=== PATIENT | male | born 1970 | race Caucasian/White ===

== ENCOUNTER 2019-08-07 05:35 | Outpatient (CLI) | payer BC ==
[~2019-08-07] VITALS: Ht 180 cm; Wt 127.0 kg
[~2019-08-07 05:35] MED LIST: AGM875T PO; ALPR0.25 PO; AMIO200T50 PO; AMLO10TA7 PO; AMLO5TAB9 PO; APIX5TAB PO; APIX5TAB2 PO; ASP325TEC PO; ASPI325T32 PO; BUSP15TA60 PO; CITA20TA4 PO; DCS100C PO; DILT120C PO; DILT300C PO; DILT360C26 PO; DILT360C36 PO; DLT240CCR PO; DRON400T PO; FLEC50TA PO; LEVO750T9 PO; LISI10TA2 PO; METAMUCIL POWD283 GM PO; METO-272 PO; METO-370 PO; METO-395 PO; PANT40TA PO; PANT40TA3 PO; PNT40TEC PO; PRD10T PO; SENN-75 PO; STL80T PO; Sotalol Hcl PO; TEST200V3 IM; testosterone
[2019-08-07] MEDS ORDERED: ATOR10TA66 PO (14:50)
[2019-08-07] MEDS ORDERED: DOCU-143 PO (14:50)
[2019-08-07] MEDS ORDERED: METF-397 PO (14:50)
[2019-08-07] MEDS ORDERED: ESCI10TA PO (14:50)
[2019-08-07] MEDS ORDERED: METO-395 PO (14:50)
[2019-08-07] MEDS ORDERED: VALS160T29 PO (14:50)
== END 2019-08-07 14:57 | disposition home or self-care (01) ==
LOC: PREOP 05:35
PROVIDERS: ATTEND Specialist
DX: Z01.818 Encounter for other preprocedural examination (principal)

== ENCOUNTER 2019-08-09 06:49 | Day surgery (SDC) | payer BC ==
[~2019-08-09] VITALS: Ht 180 cm; Wt 127.0 kg
[~2019-08-09 06:49] MED LIST changes: +ATOR10TA66 PO; +DOCU-143 PO; +ESCI10TA PO; +METF-397 PO; -METO-370 PO; -METO-395 PO; +METO50TA7 PO; +MTP100TCR PO; +VALS160T29 PO
[2019-08-09] MEDS ORDERED: TIMOLOL MALEATE 0.5% 5 ML (TIMOPTIC) BTL OU PRN (07:00)
[2019-08-09] MEDS ORDERED: MOXIFLOXACIN OPHTH SOLN 5 MG/ML 0.3 ML SYRINGE OP ONE (07:00)
[2019-08-09] MEDS ORDERED: POVIDONE (BETADINE) OPHTH SOLN 5% 30 ML OP ONE (07:00)
[2019-08-09] MEDS ORDERED: LIDOCAINE PF 1% 2 ML AMP IR PRN (07:00)
[2019-08-09] MEDS: TETRACAINE 0.5% OPHTH SOLN 4 ML BTL (SINGLE DOSE ONLY) OU PRN ×4 (07:03→07:30)
[2019-08-09] MEDS: CYCLOPENTOLATE 1% (CYCLOGYL) 2 ML DROPS OP SCH ×3 (07:18→07:30)
[2019-08-09] MEDS: PHENYLEPHRINE 10% OPHTH (NEO-SYN) 5 ML BTL OU SCH ×3 (07:18→07:31)
[2019-08-09 07:20] VITALS: BP 124/76
--- NOTE | 2019-08-09 07:51 | Ophthalmologist Pre-Op Note ---
Pre-Operative Progress Note H&P Reviewed The H&P was reviewed, patient examined and no changes noted. Date H&P Reviewed: Aug 09, 2019 Time H&P Reviewed: 07:51 Pre-Op Dx Cataract, Right Eye LAMAR GAVIN MD Aug 09, 2019 07:51 POS
[2019-08-09] MEDS ORDERED: MIDAZOLAM 2 MG/2 ML (VERSED) VIAL ONE (07:55)
[2019-08-09] MEDS ORDERED: acetaZOLAMIDE ER 500 MG CAP (DIAMOX SEQUELS) PO ONE (08:00)
--- NOTE | 2019-08-09 08:15 | Ophthalmology Operative Report ---
Cataract removal/placement IOL PREOPERATIVE DIAGNOSIS: Cataract Right Eye POSTOPERATIVE DIAGNOSIS: Cataract Right Eye PROCEDURE: Cataract removal and placement of posterior chamber implant, right eye SURGEON: Javier Gavin ANESTHESIA: Topical with sedation COMPLICATIONS: None ESTIMATED BLOOD LOSS: Minimal DESCRIPTION OF PROCEDURE: After proper informed consent was obtained, the patient, a 48 male, was taken to the Operating Room and the right eye was anesthetized with tetracaine. The right eye was then prepped and draped in the usual manner. A wire lid speculum was placed. A paracentesis was made at the left hand position. Preservative free lidocaine was injected into the anterior chamber followed by viscoelastic. A clear corneal incision was made in the temporal position. A capsulorrhexis was preformed and the central nuclear and cortical material were removed. The posterior capsule was polished and Solo [id number] 21.0 IOL was placed into the capsular bag. The residual viscoelastic was aspirated and balanced saline solution was injected into the anterior chamber. Moxifloxacin was injected into the anterior chamber. The wound was checked and found to be water tight. The patient tolerated the procedure well without complications. JAVIER GAVIN MD Aug 09, 2019 08:15 POS
[2019-08-09 08:23] VITALS: BP 124/74
--- NOTE | 2019-08-09 11:42 | Anesthesia-General Post-Op ---
MAC Patient Condition Mental Status/LOC: Same as Preop Cardiovascular: Satisfactory Nausea/Vomiting: Absent Respiratory: Satisfactory Pain: Controlled Complications: Absent Post Op Complications Complications None Follow Up Care/Instructions Patient Instructions None needed. Anesthesiology Discharge Order Discharge Order Patient is doing well, no complaints, stable vital signs, no apparent adverse anesthesia problems. No complications reported per nursing. SRIDHAR AVELAR CRNA Aug 09, 2019 11:42 POS
--- OUTSIDE RECORDS SUMMARY | 2019-09-04 08:16 | XMS REPORT | Clinical Summary ---
Author Author [facility] Organization [facility] Address Unknown Phone Unavailable Care Team Providers Care B Operator Name Role Phone Sonja Pritchard RN Unavailable Unavailable Terrell Cui MD PCP Source Comments Some departments are not documenting in the electronic medical record. If you d o not see the information that you expected, contact Release of Information in state [facility] facility [employer] Information Management department at [phone] for further assistan ce in locating additional records.[facility] Allergies Comments Active Allergy Reactions Severity Noted Date Pt had sneezing following IV contrast injection. Pt states this happens every time he has IV contrast. Denies itching. No rash noted on assessment. Iodinated Contrast Media SNEEZING Low 08/08 Medications End Date Status Medication Sig Dispensed Refills Start Date Active apixaban (ELIQUIS) 5 mg Take 5 mg by 0 tab tablet mouth twice daily. Active testosterone cypionate Inject 100 mg 0 (DEPO-TESTOSTERONE) 200 to area(s) as mg/mL injection directed every 7 days. Fridays Active ALPRAZolam (XANAX) 0.25 Take 0.25 mg 0 mg tablet by mouth twice daily as needed for Anxiety. Active busPIRone (BUSPAR) 15 mg Take 15 mg by 0 tablet mouth at bedtime daily. Active docusate (COLACE) 100 mg Take 200 mg 0 capsule by mouth at bedtime daily. Active amLODIPine (NORVASC) 10 Take 10 mg by 0 mg tablet mouth daily. Active pantoprazole DR 1 Tab daily. 30 Tab 0 (PROTONIX) 40 mg tablet 6 Active metoprolol XL (TOPROL XL) Take 100 mg 0 100 mg extended release by mouth tablet daily. Active PSYLLIUM HUSK/ASPARTAME Take by 0 (METAMUCIL SUGAR-FREE mouth daily. (ASPART) PO) Active lisinopril (PRINIVIL; Take 1-2 Tabs 270 Tab 3 ZESTRIL) 10 mg tablet by mouth as 7 directed. Take 2 tablets by mouth in the morning and 1 tablet by mouth at night. Active Problems Problem Noted Date Atrial fibrillation 08/19/2015 PMHx Summary 07/21/2015 Overview: His PMHx briefly includes: Currently pe rsistent AFIB, AFL, hypertension, status post Medtronic LINQ device impla ntation, sleep apnea syndrome on CPAP, normal LV function by echocardiog aleida from Dr. Cobb s office April 29, 2015, negative stre ss imaging from Dr. Cobb s office 2014, HYPOthyroidism, and GERD . His History is also notable for tobacco chewing at least a can per day. Of note per cardiac catheterization in the remote past which reportedly documented nonobstructive CAD. There was also concern in the remote tn st that Amiodarone that he had been on previously caused thyroid disease wh ich in part which resulted in him stopping it. Regarding his AFIB: Apparently Mr. Niall fierro has had a history of AFIB dating back to at least 2012, or maybe before that. He had been on Amiodarone for up to a year with his pr ior AFIB. It was ultimately discontinued. The episodes [facility] 2012 and 2014 were rare, brief, and self-limited. 03/2015 He was diagnosed with documented AFIB. He underwent LINQ Medtronic Reveal diana ce implantation by Dr. Cobb on 03/27/15 to help track his AFIB burden. He has been refractory to Multaq and Flecainide and was referred for AFIB RFA. For a much greater detailed history of his AFIB, etc. Refer to my initial consultation 05/08/15. 05/08/15 Initial EP Consultation: At that time we discussed pursuing AFIB RFA for his recurrent, very symptomatic , and refractory AFIB. I recommended reinitiation of Flecainid e and recommended repeat CVRT in an effort to try and maintain some sinus r hythm prior to his procedure. Given his Sinus Bradycardia, I recommended in itiating the Flecainide with monitoring. However during that office visit I had noted that he had had an abnormal TSH in the recent past. Therefore I rec ommended further follow up concerned that he was HYPERTHYROID. 05/26/15 He was admitted by Dr. Cobb. F lecainide was reinitiated and he underwent successful Cardioversion rest oring sinus rhythm. Note: during this time, he was noted to be markedly Hyperthyroid, with a TSH level of 0 and a free T4 of 1.65. Apple hancock saw an airline manager. He was initiated on Prednisone, and Methimazol e. 06/01/15 He had recurrent AFIB. He has c ontinued to have intermittent recurrent AFIB, as well as some recurre nt AFL detected through his Bomboard Reveal LinQ Monitor. 06/05/15 OV: Given his recent diagnosis of HYPERTHYROIDISM that was still being treated and since he was on Predn isone, et cetera. We did not feel pursuing invasive RFA was appropriate a t that time. We also discussed that the likelihood o f him having recurrent atrial arrhythmias post-AFIB RFA was high whil e he is still significantly hyperthyroid. Therefore we postponed his AFIB RFA unt il he would be euthyroid and we would have an opportunity at that point to reassess the clinical burden of his atrial arrhythmias--in a euthyroid state. 06/05/[address] Angiogram: Demonstr ated normal PV anantomy and normal LA size and was otherwise normal, per r eport as well. 07/03/15 - 07/08/15 Hospitalized at [facility] in with severe Hepatitis and markedly elevated LFTs, bilirubin, etc. It was thought this was related to his Flecainide (very unlikely) or his Methimazole. He even underwent a liver Bx, showing findings that were reportedly c/w Medication-induced Hepat ic toxic injury. Iron stains were normal, and trichrome stain showed mild periportal fibrosis. He was also back in AFIB at that time a nd was CVRT'd. Sotalol was also initiated at 80 mg BID and for SBRAD his Metoprolol and Diltiazem were both stopped. He remaine d on Eliquis. 07/21/15 OV: His ECG documented NSR, ho wever on device check, he had 83 tachy episodes-- all AFIB with RVR. He had a 33% AFIB burden. His AFIB was significantly symptomatic. At this poin t, he was euthyroid. Thus, we planned to increase his Sotalo l to 120 or 160 mg BID (he would do this in admission with Dr. Cobb). After discussion, we planned to proceed with an AFIB/KEY Ablation procedure. Since he had also had docume nted AFL in the past, we also planned a CTI AFL RFA. Prior to the procedure, we discussed th at he should modify arrhythmia risk factors, including cutting his tobacco use at least in half, following carefully with his airline manager to m aintain euthyroidism, and use his CPAP diligently. Post-ablation, we discussed that we wou ld resume his Sotalol at 120 or 160 mg BID. 08/19/15 Successful AFIB RFA with WACA approach and right-sided CTI-AFL RFA . All 4 PVs isolated and independen t firing noted with LSPV and RSPV. Pt was in AFIB at presentation with RVR and post intubation had persistent relative hypotension with SBPs in the 8 0-90s mmHg. So we proceed at onset with Elective CVRT 360 J restoring NSR- -after CS catheter up confirming not AFL but AFIB. With NSR and time, SBP dr wilks improved. Once Left side done and no arrhythmias with Isuprel 20 mcg then pulled to right and the ectopy induced by catheters and on isup rel he went into AFL with CL of 230 ms that appeared to be CTI-dependent. W hen attempting entrainment from LLRA--> terminating the AFL. We then di d a CTI RFA creating bidirectional conduction block. He stayed for Sotalol initiation. 11/24/15 OV: No documented recurrent HENRY B since after the first month Post-Ablation. Thus, we discontinued his Sotalol and m onitored via his ILR. Hyperthyroidism 06/05/2015 Typical atrial flutter 06/05/2015 Screening for cardiovascular condition 05/08/2015 Overview: 04/29/15 EULOGIO (Via [facility]): EF 60%. LA, KEY normal in size, no clot or thrombus seen. No pericardial effusion. 04/30/15 Lexiscan stress test ([facility]ia [facility]): No ischemia or infarction on SPECT images. Normal LV size with good contractility. Calculated EF 58%. 05/01/15 CXR ([facility]ia [facility]): Cardiomegaly with minimal vascular congestion. Status post placement of implantable loop recorder 0 04/29/2015 Overview: 03/27/15 LINQ implant (Dr. Cobb). SN RL [id number] Paroxysmal atrial fibrillation Overview: 02/2013 EULOGIO/DCCV (Dr. Cobb) 03/2015 EULOGIO/DCCV (Dr. Cobb) 06/03/16 - Holter: (Dr Cobb) - 48 hours : SR with occasional PVC's, V-couplets, 1 episode of 3 beats NSVT, mnomorphic, LBBB morphology. Hypertension due to endocrine disorder GERD (gastroesophageal reflux disease) AIMEE (obstructive sleep apnea) Overview: 04/08/15 Sleep Study ([facility]ia [facility]): Obstructive sleep apnea-hypopnea syndrome. Family History Medical History Relation Name Comments Hypertension Father Stroke Father Cancer Mother Diabetes Mother Heart Failure Mother Stroke Mother Cancer Paternal Grandmother Relation Name Status Comments Father Mother Paternal Grandmother Social History Date Tobacco Use Types Packs/Day Years Used Never Smoker Smokeless Tobacco: Chew Current User Comments: Patient has chewed tobacco for 26 years; 1 can/day Drinks/Week oz/Week Comments Alcohol Use No Sex Assigned at Date Recorded Not on file Industry Job Start Date Occupation Not on file Not on file Not on file Travel End Travel History Travel Start No recent travel history available. Last Filed Vital Signs Reading Time Taken Comments Vital Sign 144/86 01/23/2017 1:25 PM CDT Blood Pressure 87 01/23/2017 1:25 PM CDT Pulse 36.9 C (98.5 F) 04/23/2016 8:04 AM CDT Temperature - - Respiratory Rate 98% 04/23/2016 9:31 AM CDT Oxygen Saturation - - Inhaled Oxygen Concentration 117.5 kg (259 lb) 01/23/2017 1:25 PM CDT Weight 182.9 cm (6') 01/23/2017 1:25 PM CDT Height 35.13 01/23/2017 1:25 PM CDT Body Mass Index Plan of Treatment Health Maintenance Due Date Last Done Comments DTAP/TDAP VACCINES (1 - 12/15/1979 Tdap) HIV SCREENING 12/15/1983 PHYSICAL (COMPREHENSIVE) 1986 EXAM COLORECTAL CANCER 2018 SCREENING SHINGLES RECOMBINANT 2018 VACCINE (1 of 2) INFLUENZA VACCINE 04/04/2019 05/28/2015, 001, 06/30/2000, Additional history exists Implants Device Identifier Shelf Expiration Date Model / Serial / L ot Implanted Type Area Manufactur er Loop Recorder Loop Recorder Results Not on filefrom Last 3 Months Insurance Type Payer Benefit Subscriber ID Effective Phone Address Plan / Dates Group PPO BC[facility] xxxxxxxxxxxx [id number] [facility] C[facility] resent BLUE [address] (Home) [place] [phone] Advance Directives Patient Digital Research Analyst Explanation Type Date Recorded Advance 08/19/2015 5:50 AM Directive/DPOA Date Inactivated Comments Code Status Date Activated 04/23/2016 12:57 PM Full Code 04/21/2016 6:28 AM Provider has discussed Code Status No, more discussi on w/Patient or Family? needed 08/20/2015 10:47 AM Full Code 08/19/2015 6:01 AM Provider has discussed Code Status No, more discussi on w/Patient or Family? needed
--- OUTSIDE RECORDS SUMMARY | 2019-09-04 08:18 | XMS REPORT | Continuity of Care Document ---
Author Organization Unknown Address Unknown Phone Unavailable Allergies Active Description Code Type Severity Reaction Onset Reported/Identified Relationship to Patient Clinical Status Yes NO KNOWN DRUG ALLERGIES UNKNOWN NO KNOWN DRUG ALLERG Yes NO KNOWN DRUG ALLERGIES UNKNOWN UNKNOWN Yes No Known Drug Allergies [id number] Drug Allergy Unknown N/A 08/07/2019 Medications Medication Packaging Start Date St op Date Route Dosage Sig MECLIZINE TAB 25 MG (ANTIVERT) MG 04/19/2017 04/19/2017 PRN ONCE NORMAL SALINE 1000CC IV BAG INJ 0.9 % (NS 1000CC IV BAG) ml 06/17/2017 06/17/2017 ONCE&2304 PANTOPAZOLE VIAL INJ 40 MG (PROTONIX IV) MG 06/17/2017 06/17/2017 ONCE&2306 APIXABAN TAB 5 MG (ELIQUIS) MG 06/18/2017 06/24/2017 BID&0800,2000 PANTOPRAZOLE TAB 40 MG (PROTONIX) MG 06/18/2017 06/24/2017 Daily&0900 METOPROLOL TAB 50 MG (LOPRESSOR) MG 06/18/2017 06/24/2017 Daily&0900 AMLODIPINE TAB 10 MG (NORVASC) MG 06/18/2017 06/24/2017 Daily&0900 Docusate sodium 100mg oral capsule (COLACE ) MG 06/18/2017 06/27/2017 QHS&2100 LACTATED RINGERS 1000CC IV BAG INJ ml 07/10/2017 07/11/2017 CONTINUOUSEVERY 0 Hour Problems Date Dx Coded Attending Type Code Diagnosis Diagnosed By 02/19/2013 NETTA JUAN MD Ot 257. 2 TESTICULAR HYPOFUNC NEC 02/19/2013 NETTA JUAN MD Ot 276. 8 HYPOPOTASSEMIA 02/19/2013 NETTA JUAN MD Ot 305. 1 TOBACCO USE DISORDER 02/19/2013 NETTA JUAN MD Ot 427. 31 ATRIAL FIBRILLATION 02/19/2013 NETTA JUAN MD Ot 530. 81 ESOPHAGEAL REFLUX 02/19/2013 DRAKE ARIAS NETTA Marshall Ot V12. 79 PERSONAL HISTORY OTH SPEC DIGESTIVE SYST 02/25/2013 BETZAIDA ARIAS FACC, ALI FACP CCDS Ot 278.00 OBESITY, NOS 02/25/2013 BETZAIDA BASSETTC, ALI FACP CCDS Ot 427.31 ATRIAL FIBRILLATION 02/25/2013 BETZAIDA ARIAS FACC, ALI FACP CCDS Ot 530.81 ESOPHAGEAL REFLUX 02/25/2013 BETZAIDA ARIAS FACC, ALI FACP CCDS Ot 786.50 CHEST PAIN NOS 02/25/2013 BETZAIDA ARIAS FACC, ALI FACP CCDS Ot V85.33 BODY MASS INDEX 33.0-33.9, ADULT 04/06/2013 GREY ARIAS, TORO Atkinson Ot 562. 11 DIVERTICULITIS COLON (W/O MENT OF HEMORR 04/06/2013 GREY ARIAS, TORO Atkinson Ot 789. 04 ABDOMINAL PAIN, LEFT LOWER QUADRANT 09/05/2014 Ot 603.9 09/05/2014 Ot 604.90 10/08/2014 Ot 603.9 10/08/2014 Ot 604.90 10/09/2014 Ot 603.9 10/09/2014 Ot 604.90 10/15/2014 COSENS DO, CARLOS L Ot 927. 3 10/15/2014 COSENS DO, CARLOS L Ot E000 .0 10/15/2014 COSENS DO, CARLOS L Ot E928 .9 10/20/2014 Ot 603.9 10/20/2014 Ot 604.90 10/20/2014 COSENS DO, CARLOS L Ot 927. 3 10/20/2014 COSENS DO, CARLOS L Ot E000 .0 10/20/2014 COSENS DO, CARLOS L Ot E928 .9 10/20/2014 COSENS DO, CARLOS L Ot 927. 3 10/20/2014 COSENS DO, CARLOS L Ot E000 .0 10/20/2014 COSENS DO, CARLOS L Ot E928 .9 03/10/2015 VITOR HUA MD Ot 427.31 ATRIAL FIBRILLATION 03/10/2015 VITOR HUA MD Ot 427 .9 CARDIAC DYSRHYTHMIA NOS 03/10/2015 VITOR HUA MD Ot V58.69 OT MED,LT,CURRENT USE 03/25/2015 Ot 603.9 03/25/2015 Ot 604.90 03/25/2015 CAPO DODANIELNT L Ot 927. 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 00 OBESITY, NOS 03/25/2015 NETTA JUAN MD Ot 305. 1 TOBACCO USE DISORDER 03/25/2015 NETTA JUAN MD Ot 401. 9 HYPERTENSION NOS 03/25/2015 NETTA JUAN MD Ot 427. 31 ATRIAL FIBRILLATION 03/25/2015 NETTA JUAN MD Ot 530. 81 ESOPHAGEAL REFLUX 03/25/2015 NETTA JUAN MD Ot V03. 82 PROPHYLACTIC VACC AGAINST STREPTOCOCCUS 03/25/2015 NETTA JUAN MD Ot V85. 32 BODY MASS INDEX 32.0-32.9, ADULT 03/27/2015 NETTA JUAN MD Ot 272. 4 HYPERLIPIDEMIA NEC/NOS 03/27/2015 NETTA JUAN MD Ot 401. 9 HYPERTENSION NOS 03/27/2015 NETTA JUAN MD Ot 427. 31 ATRIAL FIBRILLATION 03/27/2015 NETTA JUAN MD Ot 785. 1 PALPITATIONS 03/27/2015 NETTA JUAN MD Ot V58. 61 ANTICOAGULANTS,LT,CURRENT USE 03/27/2015 NETTA JUAN MD Ot V58. 69 OTH MED,LT,CURRENT USE 04/02/2015 NETTA JUAN MD Ot 327. 23 OBSTRUCTIVE SLEEP APNEA (ADULT) (PEDIATR 04/02/2015 NETTA JUAN MD Ot 427. 31 ATRIAL FIBRILLATION 04/30/2015 NETTA JUAN MD Ot 242. 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 00 OBESITY, NOS 04/30/2015 NETTA JUAN MD Ot 327. 23 OBSTRUCTIVE SLEEP APNEA (ADULT) (PEDIATR 04/30/2015 NETTA JUAN MD Ot 401. 9 HYPERTENSION NOS 04/30/2015 NETTA JUAN MD Ot 427. 31 ATRIAL FIBRILLATION 04/30/2015 NETTA JUAN MD Ot 427. 81 SINOATRIAL NODE DYSFUNCT 04/30/2015 NETTA JUAN MD Ot 496 CHR AIRWAY OBSTRUCT NEC 04/30/2015 NETTA JUAN MD Ot V85. 34 BODY MASS INDEX 34.0-34.9, ADULT 05/02/2015 NETTA JUAN MD Ot 242. 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 00 OBESITY, NOS 05/02/2015 NETTA JUAN MD Ot 327. 23 OBSTRUCTIVE SLEEP APNEA (ADULT) (PEDIATR 05/02/2015 NETTA JUAN MD Ot 401. 9 HYPERTENSION NOS 05/02/2015 NETTA JUAN MD Ot 426. 82 LONG QT SYNDROME 05/02/2015 NETTA JUAN MD Ot 427. 31 ATRIAL FIBRILLATION 05/02/2015 NETTA JUAN MD Ot 496 CHR AIRWAY OBSTRUCT NEC 05/02/2015 NETTA JUAN MD Ot V85. 34 BODY MASS INDEX 34.0-34.9, ADULT 05/21/2015 NETTA JUAN MD Ot 242. 90 05/21/2015 NETTA JUAN MD Ot 257. 2 05/21/2015 NETTA JUAN MD Ot 278. 00 05/21/2015 NETTA JUAN MD Ot 327. 23 05/21/2015 NETTA JUAN MD Ot 401. 9 05/21/2015 NETTA JUAN MD Ot 427. 31 05/21/2015 NETTA JUAN MD Ot 427. 81 05/21/2015 NETTA JUAN MD Ot 496 05/21/2015 NETTA JUAN MD Ot V85. 34 05/27/2015 NETTA JUAN MD Ot 242. 90 05/27/2015 NETTA JUAN MD Ot 257. 2 05/27/2015 NETTA JUAN MD Ot 278. 00 05/27/2015 NETTA JUAN MD Ot 327. 23 05/27/2015 NETTA JUAN MD Ot 401. 9 05/27/2015 NETTA JUAN MD Ot 427. 31 05/27/2015 NETTA JUAN MD Ot 496 05/27/2015 NETTA JUAN MD Ot V85. 33 05/28/2015 NETTA JUAN MD Ot 242. 90 05/28/2015 NETTA JUAN MD Ot 257. 2 05/28/2015 NETTA JUAN MD Ot 278. 00 05/28/2015 NETTA JUAN MD Ot 327. 23 05/28/2015 NETTA JUAN MD Ot 401. 9 05/28/2015 NETTA JUAN MD Ot 427. 31 05/28/2015 NETTA JUAN MD Ot 496 05/28/2015 NETTA JUAN MD Ot V85. 33 05/28/2015 NETTA JUAN MD Ot 242. 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 4 HYPERLIPIDEMIA NEC/NOS 05/28/2015 NETTA JUAN MD Ot 278. 00 OBESITY, NOS 05/28/2015 NETTA JUAN MD Ot 327. 23 OBSTRUCTIVE SLEEP APNEA (ADULT) (PEDIATR 05/28/2015 NETTA JUAN MD Ot 401. 9 HYPERTENSION NOS 05/28/2015 NETTA JUAN MD Ot 427. 31 ATRIAL FIBRILLATION 05/28/2015 NETTA JUAN MD Ot 496 CHR AIRWAY OBSTRUCT NEC 05/28/2015 NETTA JUAN MD Ot V85. 33 BODY MASS INDEX 33.0-33.9, ADULT 07/26/2015 NETTA JUAN MD Ot E05. 90 THYROTOXICOSIS, UNSP WITHOUT THYROTOXIC 07/26/2015 NETTA JUAN MD Ot E29. 1 TESTICULAR HYPOFUNCTION 07/26/2015 NETTA JUAN MD Ot F17.220 NICOTINE DEPENDENCE, CHEWING TOBACCO, UN 07/26/2015 NETTA JUAN MD Ot G47. 33 OBSTRUCTIVE SLEEP APNEA (ADULT) (PEDIATR 07/26/2015 NETTA JUAN MD Ot I10 ESSENTIAL (PRIMARY) HYPERTENSION 07/26/2015 NETTA JUAN MD Ot I48. 91 UNSPECIFIED ATRIAL FIBRILLATION 07/26/2015 NETTA JUAN MD Ot I49. 5 SICK SINUS SYNDROME 07/26/2015 NETTA JUAN MD Ot J44. 9 CHRONIC OBSTRUCTIVE PULMONARY DISEASE, U 07/26/2015 NETTA JUAN MD Ot K21. 9 GASTRO-ESOPHAGEAL REFLUX DISEASE WITHOUT 07/26/2015 NETTA JUAN MD Ot R74. 8 ABNORMAL LEVELS OF OTHER SERUM ENZYMES 07/26/2015 NETTA JUAN MD Ot E05. 90 07/26/2015 NETTA JUAN MD Ot E29. 1 07/26/2015 NETTA JUAN MD Ot F17.220 07/26/2015 NETTA JUAN MD Ot G47. 33 07/26/2015 NETTA JUAN MD Ot I10 07/26/2015 NETTA JUAN MD, Ot I48. 91 07/26/2015 NETTA JUAN MD Ot I49. 5 07/26/2015 NETTA JUAN MD Ot J44. 9 07/26/2015 NETTA JUAN MD Ot K21. 9 07/26/2015 NETTA JUAN MD Ot R74. 8 08/20/2015 ANUM CÁRDENAS DO Ot I51.7 CARDIOMEGALY 08/20/2015 ANUM CÁRDENAS DO Ot J18.9 PNEUMONIA, UNSPECIFIED ORGANISM 08/20/2015 ANUM CÁRDENAS DO Ot R07.89 OTHER CHEST PAIN 08/20/2015 ANUM CÁRDENAS DO Ot R50.9 FEVER, UNSPECIFIED 08/21/2015 Ot 603.9 08/21/2015 Ot 604.90 08/21/2015 DANIEL SCANLON DONT L Ot 927. 3 08/21/2015 DANIEL SCANLON DONT L Ot E000 .0 08/21/2015 DANIEL SCANLON DONT L Ot E928 .9 09/08/2015 NETTA JUAN MD Ot I48. 91 09/08/2015 NETTA JUAN MD Ot J90 09/08/2015 NETTA JUAN MD Ot R06. 00 01/08/2016 NETTA JUAN MD Ot I48. 91 UNSPECIFIED ATRIAL FIBRILLATION 01/08/2016 NETTA JUAN MD, Ot J90 PLEURAL EFFUSION, NOT ELSEWHERE CLASSIFI 01/08/2016 NETTA JUAN MD Ot R06. 00 DYSPNEA, UNSPECIFIED 01/08/2016 Ot 603.9 HYDR OCELE NOS 01/08/2016 Ot 604.90 ORCHITIS/EPIDIDYMIT NOS 01/08/2016 CAPO DANIEL CARPENTERGLENROY Lima Ot 927. 3 CRUSHING INJURY FINGER 01/08/2016 CARLOS SCANLON DO Ot E000 .0 CIVILIAN ACTIVITY DONE FOR INCOME OR PAY 01/08/2016 CARLOS SCANLON DO Ot E928 .9 ACCIDENT NOS 01/08/2016 NETTA JUAN MD Ot I48. 91 UNSPECIFIED ATRIAL FIBRILLATION 01/08/2016 NETTA JUAN MD Ot J90 PLEURAL EFFUSION, NOT ELSEWHERE CLASSIFI 01/08/2016 NETTA JUAN MD Ot R06. 00 DYSPNEA, UNSPECIFIED 01/10/2016 NETTA JUAN MD Ot E03. 9 HYPOTHYROIDISM, UNSPECIFIED 01/10/2016 NETTA JUAN MD Ot E29. 1 TESTICULAR HYPOFUNCTION 01/10/2016 NETTA JUAN MD Ot F17.220 NICOTINE DEPENDENCE, CHEWING TOBACCO, UN 01/10/2016 NETTA JUAN MD Ot G47. 33 OBSTRUCTIVE SLEEP APNEA (ADULT) (PEDIATR 01/10/2016 NETTA JUAN MD Ot I10 ESSENTIAL (PRIMARY) HYPERTENSION 01/10/2016 NETTA JUAN MD Ot I48. 91 UNSPECIFIED ATRIAL FIBRILLATION 01/10/2016 NETTA JUAN MD Ot J44. 9 CHRONIC OBSTRUCTIVE PULMONARY DISEASE, U 01/10/2016 NETTA JUAN MD Ot K21. 9 GASTRO-ESOPHAGEAL REFLUX DISEASE WITHOUT 04/28/2016 NETTA JUAN MD Ot E03. 9 HYPOTHYROIDISM, UNSPECIFIED 04/28/2016 NETTA JUAN MD Ot E29. 1 TESTICULAR HYPOFUNCTION 04/28/2016 NETTA JUAN MD Ot G47. 33 OBSTRUCTIVE SLEEP APNEA (ADULT) (PEDIATR 04/28/2016 NETTA JUAN MD Ot I10 ESSENTIAL (PRIMARY) HYPERTENSION 04/28/2016 NETTA JUAN MD Ot I48. 0 PAROXYSMAL ATRIAL FIBRILLATION 04/28/2016 NETTA JUAN MD Ot J44. 9 CHRONIC OBSTRUCTIVE PULMONARY DISEASE, U 04/28/2016 NETTA JUAN MD Ot K21. 9 GASTRO-ESOPHAGEAL REFLUX DISEASE WITHOUT 04/28/2016 NETTA JUAN MD Ot Z72. 0 TOBACCO USE 04/28/2016 NETTA JUAN MD Ot Z79.899 OTHER LONGTERM (CURRENT) DRUG THERAPY 05/04/2016 Ot 603.9 HYDR OCELE NOS 05/04/2016 Ot 604.90 ORCHITIS/EPIDIDYMIT NOS 05/04/2016 COSENS DO, CARLOS L Ot 927. 3 CRUSHING INJURY FINGER 05/04/2016 COSENS DO, CARLOS L Ot E000 .0 CIVILIAN ACTIVITY DONE FOR INCOME OR PAY 05/04/2016 COSENS DO, CARLOS L Ot E928 .9 ACCIDENT NOS 05/04/2016 NETTA JUAN MD Ot I48. 91 UNSPECIFIED ATRIAL FIBRILLATION 05/04/2016 NETTA JUAN MD, Ot J90 PLEURAL EFFUSION, NOT ELSEWHERE CLASSIFI 05/04/2016 NETTA JUAN MD Ot R06. 00 DYSPNEA, UNSPECIFIED 05/13/2016 NETTA JUAN MD Ot E03. 9 HYPOTHYROIDISM, UNSPECIFIED 05/13/2016 NETTA JUAN MD Ot E29. 1 TESTICULAR HYPOFUNCTION 05/13/2016 NETTA JUAN MD Ot G47. 33 OBSTRUCTIVE SLEEP APNEA (ADULT) (PEDIATR 05/13/2016 NETTA JUAN MD Ot I10 ESSENTIAL (PRIMARY) HYPERTENSION 05/13/2016 NETTA JUAN MD Ot I48. 0 PAROXYSMAL ATRIAL FIBRILLATION 05/13/2016 NETTA JUAN MD Ot J44. 9 CHRONIC OBSTRUCTIVE PULMONARY DISEASE, U 05/13/2016 NETTA JUAN MD Ot K21. 9 GASTRO-ESOPHAGEAL REFLUX DISEASE WITHOUT 05/13/2016 NETTA JUAN MD Ot Z72. 0 TOBACCO USE 05/13/2016 NETTA JUAN MD Ot Z79.899 OTHER HOUSE WIRER HELPER (CURRENT) DRUG THERAPY 06/03/2016 Ot 603.9 HYDR OCELE NOS 06/03/2016 Ot 604.90 ORCHITIS/EPIDIDYMIT NOS 06/03/2016 COSENS DO, CARLOS L Ot 927. 3 CRUSHING INJURY FINGER 06/03/2016 COSENS DO, CARLOS L Ot E000 .0 CIVILIAN ACTIVITY DONE FOR INCOME OR PAY 06/03/2016 COSENS DO, CARLOS L Ot E928 .9 ACCIDENT NOS 06/03/2016 NETTA JUAN MD Ot I48. 91 UNSPECIFIED ATRIAL FIBRILLATION 06/03/2016 NETTA JUAN MD, Ot J90 PLEURAL EFFUSION, NOT ELSEWHERE CLASSIFI 06/03/2016 NETTA JUAN MD Ot R06. 00 DYSPNEA, UNSPECIFIED 06/15/2016 NETTA JUAN MD Ot I48. 0 PAROXYSMAL ATRIAL FIBRILLATION 02/02/2017 Law Posey 883.1 OPEN WOUND OF FINGERS, COMPLICATED 02/02/2017 Law Posey S61.011A LACERATION W/O FB OF RIGHT THUMB W/O DAMAGE TO NAIL, INIT 02/05/2017 Cristino Lincoln V58.31 ENCOUNTER FOR CHANGE OR REMOVAL OF SURGICAL WOUND DRESSING 02/05/2017 Cristino Lincoln Z48.01 ENCOUNTER FOR CHANGE OR REMOVAL OF SURGICAL WOUND DRESSING 02/13/2017 Law Posey V58.32 ENCOUNTER FOR REMOVAL OF SUTURES 02/13/2017 Law Posey Z48.02 ENCOUNTER FOR REMOVAL OF SUTURES 03/28/2017 Ot 603.9 HYDR OCELE NOS 03/28/2017 Ot 604.90 ORCHITIS/EPIDIDYMIT NOS 03/28/2017 CARLOS SCANLON DO Ot 927. 3 CRUSHING INJURY FINGER 03/28/2017 CARLOS SCANLON DO Ot E000 .0 CIVILIAN ACTIVITY DONE FOR INCOME OR PAY 03/28/2017 CARLOS SCANLON DO Ot E928 .9 ACCIDENT NOS 03/28/2017 NETTA JUAN MD Ot I48. 91 UNSPECIFIED ATRIAL FIBRILLATION 03/28/2017 NETTA JUAN MD, Ot J90 PLEURAL EFFUSION, NOT ELSEWHERE CLASSIFI 03/28/2017 NETTA JUAN MD Ot R06. 00 DYSPNEA, UNSPECIFIED 03/28/2017 NETTA JUAN MD Ot I48. 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 3 CRUSHING INJURY FINGER 05/01/2017 CARLOS SCANLON DO Ot E000 .0 CIVILIAN ACTIVITY DONE FOR INCOME OR PAY 05/01/2017 CARLOS SCANLON DO Ot E928 .9 ACCIDENT NOS 05/01/2017 DRAKE ARIAS, NETTA Marshall Ot I48. 91 UNSPECIFIED ATRIAL FIBRILLATION 05/01/2017 NETTA JUAN MD Ot J90 PLEURAL EFFUSION, NOT ELSEWHERE CLASSIFI 05/01/2017 NETTA JUAN MD Ot R06. 00 DYSPNEA, UNSPECIFIED 05/01/2017 NETTA JUAN MD Ot I48. 0 PAROXYSMAL ATRIAL FIBRILLATION 06/18/2017 Chuckie Hillary W 401.0 MALIGNANT ESSENTIAL HYPERTENSION 06/18/2017 Chuckie Hillary W 427.31 ATRIAL FIBRILLATION 06/18/2017 Chuckie Hillary A 564.00 CONSTIPATION, UNSPECIFIED 06/18/2017 ChuckieHillary hays W 780.60 06/18/2017 Chuckie Hillary W 782.1 RASH AND OTHER NONSPECIFIC SKIN ERUPTION 06/18/2017 Chuckie Hillary W 789.06 06/18/2017 Chuckie Hillary W I10 ESSENTIAL (PRIMARY) HYPERTENSION 06/18/2017 Chuckie Hillary W I48.91 UNSPECIFIED ATRIAL FIBRILLATION 06/18/2017 Chuckie Hillary A K59.00 CONSTIPATION, UNSPECIFIED 06/18/2017 Chuckie Hillary W R10.13 EPIGASTRIC PAIN 06/18/2017 ChuckieHillary hays W R21 RASH AND OTHER NONSPECIFIC SKIN ERUPTION 06/18/2017 Chuckie Hillary W R50.9 FEVER, UNSPECIFIED 06/19/2017 W 465.9 ACUT E UPPER RESPIRATORY INFECTIONS OF UNSPECIFIED SITE 06/19/2017 W 530.11 REF LUX ESOPHAGITIS 06/19/2017 W 782.1 RASH AND OTHER NONSPECIFIC SKIN ERUPTION 06/19/2017 W J06.9 ACUT E UPPER RESPIRATORY INFECTION, UNSPECIFIED 06/19/2017 W K21.0 KWAKU RO-ESOPHAGEAL REFLUX DISEASE WITH ESOPHAGITIS 06/19/2017 W R21 RASH A ND OTHER NONSPECIFIC SKIN ERUPTION 06/21/2017 See Terrell W 780.61 FEVER PRESENTING WITH CONDITIONS CLASSIFIED ELSEWHERE 06/21/2017 Brown Terrell W R50.81 FEVER PRESENTING WITH CONDITIONS CLASSIFIED ELSEWHERE 06/21/2017 BrownTerrell W 780.61 FEVER PRESENTING WITH CONDITIONS CLASSIFIED ELSEWHERE 06/21/2017 Brown Terrell W R50.81 FEVER PRESENTING WITH CONDITIONS CLASSIFIED ELSEWHERE 06/21/2017 W 780.61 FEV ER PRESENTING WITH CONDITIONS CLASSIFIED ELSEWHERE 06/21/2017 W 782.1 RASH AND OTHER NONSPECIFIC SKIN ERUPTION 06/21/2017 W R21 RASH A ND OTHER NONSPECIFIC SKIN ERUPTION 06/21/2017 W R50.81 FEV ER PRESENTING WITH CONDITIONS CLASSIFIED ELSEWHERE 06/21/2017 See Terrell W 780.61 FEVER PRESENTING WITH CONDITIONS CLASSIFIED ELSEWHERE 06/21/2017 Brown Terrell W R50.81 FEVER PRESENTING WITH CONDITIONS CLASSIFIED ELSEWHERE 07/10/2017 Emeka Shah 455.0 INTERNAL HEMORRHOIDS WITHOUT MENTION OF COMPLICATION 07/10/2017 Emeka Shah 530.81 07/10/2017 Emeka Shah 535.10 07/10/2017 Emeka Shah 552.3 DIAPHRAGMATIC HERNIA WITH OBSTRUCTION 07/10/2017 Emeka Shah 562.12 DIVERTICULOSIS OF COLON WITH HEMORRHAGE 07/10/2017 Emeka Shah 787.20 07/10/2017 Emeka Shah K21.0 GASTRO- ESOPHAGEAL REFLUX DISEASE WITH ESOPHAGITIS 07/10/2017 Emeka Shah K29.30 CHRONIC SUPERFICIAL GASTRITIS WITHOUT BLEEDING 07/10/2017 Emeka Shah K44.9 DIAPHRAGMATIC HERNIA WITHOUT OBSTRUCTION OR GANGRENE 07/10/2017 Emeka Shah 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 BLEEDING 07/10/2017 Emeka Shah K64.1 SECOND DEGREE HEMORRHOIDS 07/10/2017 Emeka Shah R13.10 DYSPHAGIA, UNSPECIFIED 07/10/2017 Emeka Shah V76.51 SCREENING FOR MALIGNANT NEOPLASMS OF COLON 07/10/2017 Kido, [place] W Z12.11 ENCOUNTER FOR SCREENING FOR MALIGNANT NEOPLASM OF COLON 07/14/2017 W 300.00 ANX IETY STATE, UNSPECIFIED 07/14/2017 W 427.31 ATR IAL FIBRILLATION 07/14/2017 W 782.1 RASH AND OTHER NONSPECIFIC SKIN ERUPTION 07/14/2017 W 785.0 TACH YCARDIA, UNSPECIFIED 07/14/2017 W F41.9 ANXI ETY DISORDER, UNSPECIFIED 07/14/2017 W I48.0 PARO XYSMAL ATRIAL FIBRILLATION 07/14/2017 W R00.0 TACH YCARDIA, UNSPECIFIED 07/14/2017 W R21 RASH A ND OTHER NONSPECIFIC SKIN ERUPTION 12/20/2017 W 257.2 OTHE R TESTICULAR HYPOFUNCTION 12/20/2017 W 278.00 OBE SITY, UNSPECIFIED 12/20/2017 W 296.30 JEANETTE OR DEPRESSIVE DISORDER, RECURRENT EPISODE, UNSPECIFIED DEGREE 12/20/2017 W 401.9 UNSP ECIFIED ESSENTIAL HYPERTENSION 12/20/2017 W 427.31 ATR IAL FIBRILLATION 12/20/2017 W 530.81 ESO PHAGEAL REFLUX 12/20/2017 W 680.0 CARB UNCLE AND FURUNCLE OF FACE 12/20/2017 W 780.57 UNS PECIFIED SLEEP APNEA 12/20/2017 W E29.1 TEST ICULAR HYPOFUNCTION 12/20/2017 W E66.9 OBES ITY, UNSPECIFIED 12/20/2017 W F33.9 CANELO R DEPRESSIVE DISORDER, RECURRENT, UNSPECIFIED 12/20/2017 W G47.33 OBS TRUCTIVE SLEEP APNEA (ADULT) (PEDIATRIC) 12/20/2017 W I10 ESSENT IAL (PRIMARY) HYPERTENSION 12/20/2017 W I48.2 GRIT REMOVAL OPERATOR WILLIE ATRIAL FIBRILLATION 12/20/2017 W J34.0 ABSC ESS, FURUNCLE AND CARBUNCLE OF NOSE 12/20/2017 W K21.9 KWAKU RO-ESOPHAGEAL REFLUX DISEASE WITHOUT ESOPHAGITIS 01/04/2018 W 401.9 UNSP ECIFIED ESSENTIAL HYPERTENSION 01/04/2018 W 427.31 ATR IAL FIBRILLATION 01/04/2018 W 478.19 OTH ER DISEASE OF NASAL CAVITY AND SINUSES 01/04/2018 W 782.3 EDEMA 01/04/2018 W I10 ESSENT IAL (PRIMARY) HYPERTENSION 01/04/2018 W I48.0 PARO XYSMAL ATRIAL FIBRILLATION 01/04/2018 W J34.0 ABSC ESS, FURUNCLE AND CARBUNCLE OF NOSE 01/04/2018 W R60.9 CALDERON A, UNSPECIFIED 01/05/2018 Leia, Jaimie W 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 01/05/2018 Leia, Jaimie W 272.8 OTHER DISORDERS OF LIPOID METABOLISM 01/05/2018 Leia, Jaimie W 401.9 UNSPECIFIED ESSENTIAL HYPERTENSION 01/05/2018 Leia, Jaimie W 427.31 ATRIAL FIBRILLATION 01/05/2018 Leia, Jaimie W E29.1 TESTICULAR HYPOFUNCTION 01/05/2018 Leia, Jaimie W E78.5 HYPERLIPIDEMIA, UNSPECIFIED 01/05/2018 Leia, Jaimie W I10 ESSENTIAL (PRIMARY) HYPERTENSION 01/05/2018 LeiaJaimie W I48.0 PAROXYSMAL ATRIAL FIBRILLATION 01/05/2018 Leia, Jaimie W 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 01/05/2018 Leia, Jaimie W 272.8 OTHER DISORDERS OF LIPOID METABOLISM 01/05/2018 Leia, Jaimie W 401.9 UNSPECIFIED ESSENTIAL HYPERTENSION 01/05/2018 Leia, Jaimie W 427.31 ATRIAL FIBRILLATION 01/05/2018 Leia, Jaimie W E29.1 TESTICULAR HYPOFUNCTION 01/05/2018 Leia, Jaimie W E78.5 HYPERLIPIDEMIA, UNSPECIFIED 01/05/2018 LeiaJaimie W I10 ESSENTIAL (PRIMARY) HYPERTENSION 01/05/2018 LeiaJaimie W I48.0 PAROXYSMAL ATRIAL FIBRILLATION 01/05/2018 W 257.2 OTHE R TESTICULAR HYPOFUNCTION 01/05/2018 W 272.8 OTHE R DISORDERS OF LIPOID METABOLISM 01/05/2018 W 401.9 UNSP ECIFIED ESSENTIAL HYPERTENSION 01/05/2018 W 427.31 ATR IAL FIBRILLATION 01/05/2018 W E29.1 TEST ICULAR HYPOFUNCTION 01/05/2018 W E78.5 HYPE RLIPIDEMIA, UNSPECIFIED 01/05/2018 W I10 ESSENT IAL (PRIMARY) HYPERTENSION 01/05/2018 W I48.0 PARO XYSMAL ATRIAL FIBRILLATION 11/01/2018 W 257.2 OTHE R TESTICULAR HYPOFUNCTION 11/01/2018 W 272.4 OTHE R AND UNSPECIFIED HYPERLIPIDEMIA 11/01/2018 W 278.00 OBE SITY, UNSPECIFIED 11/01/2018 W 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 DISORDER 11/01/2018 W 311 DEPRES SIVE DISORDER, NOT ELSEWHERE CLASSIFIED 11/01/2018 W 327.23 OBS TRUCTIVE SLEEP APNEA (ADULT) (PEDIATRIC) 11/01/2018 W 401.0 TATO GNANT ESSENTIAL HYPERTENSION 11/01/2018 W 530.81 ESO PHAGEAL REFLUX 11/01/2018 W 780.79 OTH ER MALAISE AND FATIGUE 11/01/2018 W 786.2 COUGH 11/01/2018 W 788.62 SLO WING OF URINARY STREAM 11/01/2018 W E29.1 TEST ICULAR HYPOFUNCTION 11/01/2018 W E66.9 OBES ITY, UNSPECIFIED 11/01/2018 W E78.5 HYPE RLIPIDEMIA, UNSPECIFIED 11/01/2018 W F32.9 CANELO R DEPRESSIVE DISORDER, SINGLE EPISODE, UNSPECIFIED 11/01/2018 W G47.33 OBS TRUCTIVE SLEEP APNEA (ADULT) (PEDIATRIC) 11/01/2018 W I10 ESSENT IAL (PRIMARY) HYPERTENSION 11/01/2018 W I48 ATRIAL FIBRILLATION AND FLUTTER 11/01/2018 W K21.0 KWAKU RO-ESOPHAGEAL REFLUX DISEASE WITH ESOPHAGITIS 11/01/2018 W R05 COUGH 11/01/2018 W R39.19 OTH ER DIFFICULTIES WITH MICTURITION 11/01/2018 W R53.1 WEAKNESS 11/01/2018 W Z72.0 TOBA DEALER SUPPORT 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 11/08/2018 W 272.1 PURE HYPERGLYCERIDEMIA 11/08/2018 W 401.9 UNSP ECIFIED ESSENTIAL HYPERTENSION 11/08/2018 W 427.31 ATR IAL FIBRILLATION 11/08/2018 W E78.1 PURE HYPERGLYCERIDEMIA 11/08/2018 W I10 ESSENT IAL (PRIMARY) HYPERTENSION 11/08/2018 W I48.2 GRIT REMOVAL OPERATOR WILLIE ATRIAL FIBRILLATION 02/12/2019 W 257.2 OTHE R TESTICULAR HYPOFUNCTION 02/12/2019 W 272.4 OTHE R AND UNSPECIFIED HYPERLIPIDEMIA 02/12/2019 W 278.00 OBE SITY, UNSPECIFIED 02/12/2019 W 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 DISORDER 02/12/2019 W 311 DEPRES SIVE DISORDER, NOT ELSEWHERE CLASSIFIED 02/12/2019 W 401.0 TATO GNANT ESSENTIAL HYPERTENSION 02/12/2019 W 427.31 ATR IAL FIBRILLATION 02/12/2019 W 780.57 UNS PECIFIED SLEEP APNEA 02/12/2019 W 786.2 COUGH 02/12/2019 W E29.1 TEST ICULAR HYPOFUNCTION 02/12/2019 W E66.9 OBES ITY, UNSPECIFIED 02/12/2019 W E78.5 HYPE RLIPIDEMIA, UNSPECIFIED 02/12/2019 W F17.200 NI COTINE DEPENDENCE, UNSPECIFIED, UNCOMPLICATED 02/12/2019 W F32.9 CANELO R DEPRESSIVE DISORDER, SINGLE EPISODE, UNSPECIFIED 02/12/2019 W G47.33 OBS TRUCTIVE SLEEP APNEA (ADULT) (PEDIATRIC) 02/12/2019 W I10 ESSENT IAL (PRIMARY) HYPERTENSION 02/12/2019 W I48.0 PARO XYSMAL ATRIAL FIBRILLATION 02/12/2019 W R05 COUGH 03/13/2019 COSENS DO, CARLOS L Ot 927. 3 CRUSHING INJURY FINGER 03/13/2019 COSENS DO, CARLOS L Ot E000 .0 CIVILIAN ACTIVITY DONE FOR INCOME OR PAY 03/13/2019 COSENS DO, CARLOS L Ot E928 .9 ACCIDENT NOS 03/13/2019 DRAKE AIRAS, NETTA Marshall Ot I48. 91 UNSPECIFIED ATRIAL FIBRILLATION 03/13/2019 DRAKE ARIAS, NETTA Marshall Ot J90 PLEURAL EFFUSION, NOT ELSEWHERE CLASSIFI 03/13/2019 DRAKE ARIAS, NETTA Marshall Ot R06. 00 DYSPNEA, UNSPECIFIED 03/13/2019 DRAKE ARIAS, NETTA Marshall Ot I48. 0 PAROXYSMAL ATRIAL FIBRILLATION 05/16/2019 Leia, Jaimie W 401.0 MALIGNANT ESSENTIAL HYPERTENSION 05/16/2019 Leia, Jaimie W I10 ESSENTIAL (PRIMARY) HYPERTENSION 05/16/2019 Leia, Jaimie W 401.0 MALIGNANT ESSENTIAL HYPERTENSION 05/16/2019 Leia, Jaimie W I10 ESSENTIAL (PRIMARY) HYPERTENSION 05/16/2019 Leia, Jaimie W 401.0 MALIGNANT ESSENTIAL HYPERTENSION 05/16/2019 Leia, Jaimie W 427.31 ATRIAL FIBRILLATION 05/16/2019 Leia, Jaimie W I10 ESSENTIAL (PRIMARY) HYPERTENSION 05/16/2019 Leia, Jaimie W I48.2 CHRONIC ATRIAL FIBRILLATION 05/16/2019 Leia, Jaimie W 401.0 MALIGNANT ESSENTIAL HYPERTENSION 05/16/2019 Leia, Jaimie W 427.31 ATRIAL FIBRILLATION 05/16/2019 Leia, Jaimie W I10 ESSENTIAL (PRIMARY) HYPERTENSION 05/16/2019 Leia, Jaimie W I48.2 CHRONIC ATRIAL FIBRILLATION 05/16/2019 Leia, Jaimie W 272.8 OTHER DISORDERS OF LIPOID METABOLISM 05/16/2019 Leia, Jaimie W 401.0 MALIGNANT ESSENTIAL HYPERTENSION 05/16/2019 Leia, Jaimie W 427.31 ATRIAL FIBRILLATION 05/16/2019 Leia, Jaimie W E78.5 HYPERLIPIDEMIA, UNSPECIFIED 05/16/2019 Leia, Jaimie W I10 ESSENTIAL (PRIMARY) HYPERTENSION 05/16/2019 Leia, Jaimie W I48.2 CHRONIC ATRIAL FIBRILLATION 05/16/2019 Leia, Jaimie W 272.8 OTHER DISORDERS OF LIPOID METABOLISM 05/16/2019 Leia, Jaimie W 401.0 MALIGNANT ESSENTIAL HYPERTENSION 05/16/2019 Leia, Jaimie W 427.31 ATRIAL FIBRILLATION 05/16/2019 Leia, Jaimie W E78.5 HYPERLIPIDEMIA, UNSPECIFIED 05/16/2019 Leia, Jaimie W I10 ESSENTIAL (PRIMARY) HYPERTENSION 05/16/2019 Leia, Jaimie W I48.2 CHRONIC ATRIAL FIBRILLATION 05/16/2019 Leia, Jaimie W 272.8 OTHER DISORDERS OF LIPOID METABOLISM 05/16/2019 Leia, Jaimie W 311 DEPRESSIVE DISORDER, NOT ELSEWHERE CLASSIFIED 05/16/2019 Leia, Jaimie W 401.0 MALIGNANT ESSENTIAL HYPERTENSION 05/16/2019 Leia, Jaimie W 427.31 ATRIAL FIBRILLATION 05/16/2019 Leia, Jaimie W E78.5 HYPERLIPIDEMIA, UNSPECIFIED 05/16/2019 Leia, Jaimie W F32.9 MAJOR DEPRESSIVE DISORDER, SINGLE EPISODE, UNSPECIFIED 05/16/2019 Leia, Jaimie W I10 ESSENTIAL (PRIMARY) HYPERTENSION 05/16/2019 Leia, Jaimie W I48.2 CHRONIC ATRIAL FIBRILLATION 05/16/2019 Leia, Jaimie W 272.8 OTHER DISORDERS OF LIPOID METABOLISM 05/16/2019 Leia, Jaimie W 311 DEPRESSIVE DISORDER, NOT ELSEWHERE CLASSIFIED 05/16/2019 Leia, Jaimie W 401.0 MALIGNANT ESSENTIAL HYPERTENSION 05/16/2019 Leia, Jaimie W 427.31 ATRIAL FIBRILLATION 05/16/2019 Leia, Jaimie W E78.5 HYPERLIPIDEMIA, UNSPECIFIED 05/16/2019 Leia, Jaimie W F32.9 MAJOR DEPRESSIVE DISORDER, SINGLE EPISODE, UNSPECIFIED 05/16/2019 Leia, Jaimie W I10 ESSENTIAL (PRIMARY) HYPERTENSION 05/16/2019 Leia, Jaimie W I48.2 CHRONIC ATRIAL FIBRILLATION 05/16/2019 Leia, Jaimie W 272.8 OTHER DISORDERS OF LIPOID METABOLISM 05/16/2019 Leia, Jaimie W 311 DEPRESSIVE DISORDER, NOT ELSEWHERE CLASSIFIED 05/16/2019 Leia, Jaimie W 401.0 MALIGNANT ESSENTIAL HYPERTENSION 05/16/2019 Leia, Jaimie W 427.31 ATRIAL FIBRILLATION 05/16/2019 Leia, Jaimie W 780.57 UNSPECIFIED SLEEP APNEA 05/16/2019 Leia, Jaimie W E78.5 HYPERLIPIDEMIA, UNSPECIFIED 05/16/2019 Leia, Jaimie W F32.9 MAJOR DEPRESSIVE DISORDER, SINGLE EPISODE, UNSPECIFIED 05/16/2019 Leia, Jaimie W G47.33 OBSTRUCTIVE SLEEP APNEA (ADULT) (PEDIATRIC) 05/16/2019 Leia, Jaimie W I10 ESSENTIAL (PRIMARY) HYPERTENSION 05/16/2019 Leia, Jaimie W I48.2 CHRONIC ATRIAL FIBRILLATION 05/16/2019 Leia, Jaimie W 272.8 OTHER DISORDERS OF LIPOID METABOLISM 05/16/2019 Leia, Jaimie W 278.00 OBESITY, UNSPECIFIED 05/16/2019 Leia, Jaimie W 311 DEPRESSIVE DISORDER, NOT ELSEWHERE CLASSIFIED 05/16/2019 Leia, Jaimie W 401.0 MALIGNANT ESSENTIAL HYPERTENSION 05/16/2019 Leia, Jaimie W 427.31 ATRIAL FIBRILLATION 05/16/2019 Leia, Jaimie W 780.57 UNSPECIFIED SLEEP APNEA 05/16/2019 Leia, Jaimie W E66.9 OBESITY, UNSPECIFIED 05/16/2019 Leia, Jaimie W E78.5 HYPERLIPIDEMIA, UNSPECIFIED 05/16/2019 Leia, Jaimie W F32.9 MAJOR DEPRESSIVE DISORDER, SINGLE EPISODE, UNSPECIFIED 05/16/2019 Leia, Jaimie W G47.33 OBSTRUCTIVE SLEEP APNEA (ADULT) (PEDIATRIC) 05/16/2019 Leia, Jaimie W I10 ESSENTIAL (PRIMARY) HYPERTENSION 05/16/2019 Leia, Jaimie W I48.2 CHRONIC ATRIAL FIBRILLATION 05/16/2019 Leia, Jaimie W 272.8 OTHER DISORDERS OF LIPOID METABOLISM 05/16/2019 Leia, Jaimie W 278.00 OBESITY, UNSPECIFIED 05/16/2019 Leia, Jaimie W 305.1 TOBACCO USE DISORDER 05/16/2019 Leia, Jaimie W 311 DEPRESSIVE DISORDER, NOT ELSEWHERE CLASSIFIED 05/16/2019 Leia, Jaimie W 401.0 MALIGNANT ESSENTIAL HYPERTENSION 05/16/2019 Leia, Jaimie W 427.31 ATRIAL FIBRILLATION 05/16/2019 Leia, Jaimie W 780.57 UNSPECIFIED SLEEP APNEA 05/16/2019 Leia, Jaimie W E66.9 OBESITY, UNSPECIFIED 05/16/2019 Leia, Jaimie W E78.5 HYPERLIPIDEMIA, UNSPECIFIED 05/16/2019 Leia, Jaimie W F32.9 MAJOR DEPRESSIVE DISORDER, SINGLE EPISODE, UNSPECIFIED 05/16/2019 Leia, Jaimie W G47.33 OBSTRUCTIVE SLEEP APNEA (ADULT) (PEDIATRIC) 05/16/2019 Leia, Jaimie W I10 ESSENTIAL (PRIMARY) HYPERTENSION 05/16/2019 Leia, Jaimie W I48.2 CHRONIC ATRIAL FIBRILLATION 05/16/2019 Leia, Jaimie W Z72.0 TOBACCO USE 05/16/2019 Leia, Jaimie W 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 05/16/2019 Leia, Jaimie W 272.8 OTHER DISORDERS OF LIPOID METABOLISM 05/16/2019 Leia, Jaimie W 278.00 OBESITY, UNSPECIFIED 05/16/2019 Leia, Jaimie W 305.1 TOBACCO USE DISORDER 05/16/2019 Leia, Jaimie W 311 DEPRESSIVE DISORDER, NOT ELSEWHERE CLASSIFIED 05/16/2019 Leia, Jaimie W 401.0 MALIGNANT ESSENTIAL HYPERTENSION 05/16/2019 Leia, Jaimie W 427.31 ATRIAL FIBRILLATION 05/16/2019 Leia, Jaimie W 780.57 UNSPECIFIED SLEEP APNEA 05/16/2019 Leia, Jaimie W E29.1 TESTICULAR HYPOFUNCTION 05/16/2019 Leia, Jaimie W E66.9 OBESITY, UNSPECIFIED 05/16/2019 Leia, Jaimie W E78.5 HYPERLIPIDEMIA, UNSPECIFIED 05/16/2019 Leia, Jaimie W F32.9 MAJOR DEPRESSIVE DISORDER, SINGLE EPISODE, UNSPECIFIED 05/16/2019 Leia, Jaimie W G47.33 OBSTRUCTIVE SLEEP APNEA (ADULT) (PEDIATRIC) 05/16/2019 Leia, Jaimie W I10 ESSENTIAL (PRIMARY) HYPERTENSION 05/16/2019 Leia, Jaimie W I48.2 CHRONIC ATRIAL FIBRILLATION 05/16/2019 Leia, Jaimie W Z72.0 TOBACCO USE 05/16/2019 Leia, Jaimie W 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 05/16/2019 Leia, Jaimie W 272.8 OTHER DISORDERS OF LIPOID METABOLISM 05/16/2019 Leia, Jaimie W 278.00 OBESITY, UNSPECIFIED 05/16/2019 Leia, Jaimie W 305.1 TOBACCO USE DISORDER 05/16/2019 Leia, Jaimie W 311 DEPRESSIVE DISORDER, NOT ELSEWHERE CLASSIFIED 05/16/2019 Leia, Jaimie W 401.0 MALIGNANT ESSENTIAL HYPERTENSION 05/16/2019 Leia, Jaimie W 427.31 ATRIAL FIBRILLATION 05/16/2019 Leia, Jaimie W 780.57 UNSPECIFIED SLEEP APNEA 05/16/2019 Leia, Jaimie W E29.1 TESTICULAR HYPOFUNCTION 05/16/2019 Leia, Jaimie W E66.9 OBESITY, UNSPECIFIED 05/16/2019 Leia, Jaimie W E78.5 HYPERLIPIDEMIA, UNSPECIFIED 05/16/2019 Leia, Jaimie W F32.9 MAJOR DEPRESSIVE DISORDER, SINGLE EPISODE, UNSPECIFIED 05/16/2019 Leia, Jaimie W G47.33 OBSTRUCTIVE SLEEP APNEA (ADULT) (PEDIATRIC) 05/16/2019 Leia, Jaimie W I10 ESSENTIAL (PRIMARY) HYPERTENSION 05/16/2019 Leia, Jaimie W I48.2 CHRONIC ATRIAL FIBRILLATION 05/16/2019 Leia, Jaimie W Z72.0 TOBACCO USE 05/24/2019 Leia, Jaimie W 790.6 OTHER ABNORMAL BLOOD CHEMISTRY 05/24/2019 Leia, Jaimie W R73.9 HYPERGLYCEMIA, UNSPECIFIED 05/24/2019 Leia, Jaimie W 790.6 OTHER ABNORMAL BLOOD CHEMISTRY 05/24/2019 Elia, Jaimie W R73.9 HYPERGLYCEMIA, UNSPECIFIED 05/24/2019 Leia, Jaimie W 790.6 OTHER ABNORMAL BLOOD CHEMISTRY 05/24/2019 Leia, Jaimie W R73.9 HYPERGLYCEMIA, UNSPECIFIED 05/24/2019 Leia, Jaimie W 790.21 IMPAIRED FASTING GLUCOSE 05/24/2019 Leia, Jaimie W 790.6 OTHER ABNORMAL BLOOD CHEMISTRY 05/24/2019 Leia, Jaimie W R73.01 IMPAIRED FASTING GLUCOSE 05/24/2019 Leia, Jaimie W R73.9 HYPERGLYCEMIA, UNSPECIFIED 05/24/2019 Leia, Jaimie W 790.21 IMPAIRED FASTING GLUCOSE 05/24/2019 Leia, Jaimie W 790.6 OTHER ABNORMAL BLOOD CHEMISTRY 05/24/2019 Leia, Jaimie W R73.01 IMPAIRED FASTING GLUCOSE 05/24/2019 Leia, Jaimie W R73.9 HYPERGLYCEMIA, UNSPECIFIED 05/24/2019 Leia, Jaimie W 790.21 IMPAIRED FASTING GLUCOSE 05/24/2019 Leia, Jaimie W 790.6 OTHER ABNORMAL BLOOD CHEMISTRY 05/24/2019 Leia, Jaimie W R73.01 IMPAIRED FASTING GLUCOSE 05/24/2019 Jaimie Dupree R73.9 HYPERGLYCEMIA, UNSPECIFIED 05/24/2019 Jaimie Dupree 790.21 IMPAIRED FASTING GLUCOSE 05/24/2019 Jaimie Dupree 790.6 OTHER ABNORMAL BLOOD CHEMISTRY 05/24/2019 Jaiime Dupree R73.01 IMPAIRED FASTING GLUCOSE 05/24/2019 Jaimie Dupree R73.9 HYPERGLYCEMIA, UNSPECIFIED 06/24/2019 Jaimie Dupree 250.80 DIABETES MELLITUS WITH OTHER SPECIFIED MANIFESTATIONS, TYPE II OR UNSPECIFIED TYPE, NOT STATED UNCONTROLLED 06/24/2019 Jaimie Dupree E11.65 TYPE 2 DIABETES MELLITUS WITH HYPERGLYCEMIA 08/07/2019 LAMAR GAVIN MD, Ot Z01.818 ENCOUNTER FOR OTHER PREPROCEDURAL EXAMIN 08/09/2019 LAMAR GAVIN MD, Ot E11.36 TYPE 2 DIABETES MELLITUS WITH DIABETIC C 08/09/2019 LAMAR GAVIN MD, Ot E11 .9 TYPE 2 DIABETES MELLITUS WITHOUT COMPLIC 08/09/2019 LAMAR GAVIN MD, Ot E78.00 PURE HYPERCHOLESTEROLEMIA, UNSPECIFIED 08/09/2019 LAMAR GAVIN MD, Ot F32 .9 MAJOR DEPRESSIVE DISORDER, SINGLE EPISOD 08/09/2019 LAMAR GAVIN MD, Ot F41 .9 ANXIETY DISORDER, UNSPECIFIED 08/09/2019 LAMAR GAVIN MD, Ot G47.33 OBSTRUCTIVE SLEEP APNEA (ADULT) (PEDIATR 08/09/2019 LAMAR GAVIN MD, Ot H25.11 AGE-RELATED NUCLEAR CATARACT, RIGHT EYE 08/09/2019 LAMAR GAVIN MD Ot I10 ESSENTIAL (PRIMARY) HYPERTENSION 08/09/2019 LAMAR GAVIN MD, Ot I48.91 UNSPECIFIED ATRIAL FIBRILLATION 08/09/2019 LAMAR GAVIN MD, Ot Z79.84 LONGTERM (CURRENT) USE OF ORAL HYPOGLYC 08/09/2019 LAMAR GAVIN MD, Ot Z79.899 OTHER HOUSE WIRER HELPER (CURRENT) DRUG THERAPY 08/09/2019 LAMAR GAVIN MD, Ot Z80 .3 FAMILY HISTORY OF MALIGNANT NEOPLASM OF 08/09/2019 LAMAR GAVIN MD, Ot Z83 .3 FAMILY HISTORY OF DIABETES MELLITUS 08/09/2019 LAMAR GAVIN MD Ot Z01.818 ENCOUNTER FOR OTHER PREPROCEDURAL EXAMIN 08/13/2019 LAMAR GAVIN MD Ot E11.36 TYPE 2 DIABETES MELLITUS WITH DIABETIC C 08/13/2019 LAMAR GAVIN MD Ot E78.00 PURE HYPERCHOLESTEROLEMIA, UNSPECIFIED 08/13/2019 LAMAR GAVIN MD Ot F32 .9 MAJOR DEPRESSIVE DISORDER, SINGLE EPISOD 08/13/2019 LAMAR GAVIN MD Ot F41 .9 ANXIETY DISORDER, UNSPECIFIED 08/13/2019 LAMAR GAVIN MD Ot G47.33 OBSTRUCTIVE SLEEP APNEA (ADULT) (PEDIATR 08/13/2019 LAMAR GAVIN MD Ot H25.11 AGE-RELATED NUCLEAR CATARACT, RIGHT EYE 08/13/2019 LAMAR GAVIN MD Ot I10 ESSENTIAL (PRIMARY) HYPERTENSION 08/13/2019 LAMAR GAVIN MD Ot I48.91 UNSPECIFIED ATRIAL FIBRILLATION 08/13/2019 LAMAR GAVIN MD Ot Z79.84 HOUSE WIRER HELPER (CURRENT) USE OF ORAL HYPOGLYC 08/13/2019 LAMAR GAVIN MD Ot Z79.899 OTHER HOUSE WIRER HELPER (CURRENT) DRUG THERAPY 08/13/2019 LAMAR GAVIN MD Ot Z80 .3 FAMILY HISTORY OF MALIGNANT NEOPLASM OF 08/13/2019 LAMAR GAVIN MD Ot Z83 .3 FAMILY HISTORY OF DIABETES MELLITUS 08/16/2019 LAMAR GAVIN MD Ot E11.36 TYPE 2 DIABETES MELLITUS WITH DIABETIC C 08/16/2019 LAMAR GAVIN MD Ot E78.00 PURE HYPERCHOLESTEROLEMIA, UNSPECIFIED 08/16/2019 LAMAR GAVIN MD Ot F32 .9 MAJOR DEPRESSIVE DISORDER, SINGLE EPISOD 08/16/2019 LAMAR GAVIN MD Ot F41 .9 ANXIETY DISORDER, UNSPECIFIED 08/16/2019 LAMAR GAVIN MD Ot G47.33 OBSTRUCTIVE SLEEP APNEA (ADULT) (PEDIATR 08/16/2019 LAMAR GAVIN MD Ot H25.11 AGE-RELATED NUCLEAR CATARACT, RIGHT EYE 08/16/2019 LAMAR GAVIN MD Ot I10 ESSENTIAL (PRIMARY) HYPERTENSION 08/16/2019 LAMAR GAVIN MD Ot I48.91 UNSPECIFIED ATRIAL FIBRILLATION 08/16/2019 LAMAR GAVIN MD Ot Z79.84 HOUSE WIRER HELPER (CURRENT) USE OF ORAL HYPOGLYC 08/16/2019 LAMAR GAVIN MD Ot Z79.899 OTHER LONGTERM (CURRENT) DRUG THERAPY 08/16/2019 LAMAR GAVIN MD Ot Z80 .3 FAMILY HISTORY OF MALIGNANT NEOPLASM OF 08/16/2019 LAMAR GAVIN MD Ot Z83 .3 FAMILY HISTORY OF DIABETES MELLITUS 08/17/2019 CAPO DO, CARLOS L Ot 927. 3 CRUSHING INJURY FINGER 08/17/2019 COSENS DO, CARLOS L Ot E000 .0 CIVILIAN ACTIVITY DONE FOR INCOME OR PAY 08/17/2019 CAPO CARPENTER, CARLOS L Ot E928 .9 ACCIDENT NOS 08/17/2019 NETTA JUAN MD Ot I48. 91 UNSPECIFIED ATRIAL FIBRILLATION 08/17/2019 NETTA JUAN MD, Ot J90 PLEURAL EFFUSION, NOT ELSEWHERE CLASSIFI 08/17/2019 NETTA JUAN MD Ot R06. 00 DYSPNEA, UNSPECIFIED 08/17/2019 NETTA JUAN MD Ot I48. 0 PAROXYSMAL ATRIAL FIBRILLATION 08/17/2019 TERELL CAPELLAN MD Ot E05. 90 THYROTOXICOSIS, UNSP WITHOUT THYROTOXIC 08/17/2019 TERELL CAPELLAN MD Ot E11. 36 TYPE 2 DIABETES MELLITUS WITH DIABETIC C 08/17/2019 TERELL CAPELLAN MD Ot F32. 9 MAJOR DEPRESSIVE DISORDER, SINGLE EPISOD 08/17/2019 TERELL CAPELLAN MD Ot F41. 9 ANXIETY DISORDER, UNSPECIFIED 08/17/2019 TERELL CAPELLAN MD Ot G47. 30 SLEEP APNEA, UNSPECIFIED 08/17/2019 TERELL CAPELLAN MD Ot H57. 89 OTHER SPECIFIED DISORDERS OF EYE AND ADN 08/17/2019 TERELL CAPELLAN MD Ot I10 ESSENTIAL (PRIMARY) HYPERTENSION 08/17/2019 TERELL CAPELLAN MD Ot I48. 91 UNSPECIFIED ATRIAL FIBRILLATION 08/17/2019 TERELL CAPELLAN MD Ot K21. 9 GASTRO-ESOPHAGEAL REFLUX DISEASE WITHOUT 08/17/2019 TERELL CAPELLAN MD Ot Z79. 01 LONGTERM (CURRENT) USE OF ANTICOAGULANT 08/17/2019 TERELL CAPELLAN MD Ot Z79. 84 LONGTERM (CURRENT) USE OF ORAL HYPOGLYC 08/17/2019 TERELL CAPELLAN MD Ot Z80. 3 FAMILY HISTORY OF MALIGNANT NEOPLASM OF 08/17/2019 TERELL CAPELLAN MD Ot Z82. 49 FAMILY HX OF ISCHEM HEART DIS AND OTH DI 08/17/2019 TERELL CAPELLAN MD Ot Z95. 9 PRESENCE OF CARDIAC AND VASCULAR IMPLANT 08/17/2019 TERELL CAPELLAN MD Ot Z99. 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 90 THYROTOXICOSIS, UNSP WITHOUT THYROTOXIC 08/19/2019 TERELL CAPELLAN MD Ot E11. 36 TYPE 2 DIABETES MELLITUS WITH DIABETIC C 08/19/2019 TERELL CAPELLAN MD Ot F32. 9 MAJOR DEPRESSIVE DISORDER, SINGLE EPISOD 08/19/2019 TERELL CAPELLAN MD Ot F41. 9 ANXIETY DISORDER, UNSPECIFIED 08/19/2019 TERELL CAPELLAN MD Ot G47. 30 SLEEP APNEA, UNSPECIFIED 08/19/2019 TERELL CAPELLAN MD Ot H57. 89 OTHER SPECIFIED DISORDERS OF EYE AND ADN 08/19/2019 TERELL CAPELLAN MD Ot I10 ESSENTIAL (PRIMARY) HYPERTENSION 08/19/2019 TERELL CAPELLAN MD Ot I48. 91 UNSPECIFIED ATRIAL FIBRILLATION 08/19/2019 TERELL CAPELLAN MD Ot K21. 9 GASTRO-ESOPHAGEAL REFLUX DISEASE WITHOUT 08/19/2019 TERELL CAPELLAN MD Ot Z79. 01 HOUSE WIRER HELPER (CURRENT) USE OF ANTICOAGULANT 08/19/2019 TERELL CAPELLAN MD Ot Z79. 84 HOUSE WIRER HELPER (CURRENT) USE OF ORAL HYPOGLYC 08/19/2019 TERELL CAPELLAN MD Ot Z80. 3 FAMILY HISTORY OF MALIGNANT NEOPLASM OF 08/19/2019 TERELL CAPELLAN MD Ot Z82. 49 FAMILY HX OF ISCHEM HEART DIS AND OTH DI 08/19/2019 TERELL CAPELLAN MD Ot Z95. 9 PRESENCE OF CARDIAC AND VASCULAR IMPLANT 08/19/2019 TERELL CAPELLAN MD Ot Z99. 89 DEPENDENCE ON OTHER ENABLING MACHINES AN 08/20/2019 LAMAR GAVIN MD Ot E11.36 TYPE 2 DIABETES MELLITUS WITH DIABETIC C 08/20/2019 LAMAR GAVIN MD Ot E78.00 PURE HYPERCHOLESTEROLEMIA, UNSPECIFIED 08/20/2019 LAMAR GAVIN MD Ot E78 .2 MIXED HYPERLIPIDEMIA 08/20/2019 LAMAR GAVIN MD Ot F32 .9 MAJOR DEPRESSIVE DISORDER, SINGLE EPISOD 08/20/2019 LAMAR GAVIN MD Ot F41 .9 ANXIETY DISORDER, UNSPECIFIED 08/20/2019 LAMAR GAVIN MD Ot H25.12 AGE-RELATED NUCLEAR CATARACT, LEFT EYE 08/20/2019 LAMAR GAVIN MD Ot I25.10 ATHSCL HEART DISEASE OF [place] CORONARY 08/20/2019 LAMAR GAVIN MD Ot Z80 .3 FAMILY HISTORY OF MALIGNANT NEOPLASM OF 08/20/2019 LAMAR GAVIN MD Ot Z83 .3 FAMILY HISTORY OF DIABETES MELLITUS 08/24/2019 LAMAR GAVIN MD Ot E11.36 TYPE 2 DIABETES MELLITUS WITH DIABETIC C 08/24/2019 LAMAR GAVIN MD Ot E78.00 PURE HYPERCHOLESTEROLEMIA, UNSPECIFIED 08/24/2019 LAMAR GAVIN MD Ot E78 .2 MIXED HYPERLIPIDEMIA 08/24/2019 LAMAR GAVIN MD Ot F32 .9 MAJOR DEPRESSIVE DISORDER, SINGLE EPISOD 08/24/2019 LAMAR GAVIN MD Ot F41 .9 ANXIETY DISORDER, UNSPECIFIED 08/24/2019 LAMAR GAVIN MD Ot H25.12 AGE-RELATED NUCLEAR CATARACT, LEFT EYE 08/24/2019 LAMAR GAVIN MD Ot I25.10 ATHSCL HEART DISEASE OF [place] CORONARY 08/24/2019 LAMAR GAVIN MD Ot Z80 .3 FAMILY HISTORY OF MALIGNANT NEOPLASM OF 08/24/2019 LAMAR GAVIN MD Ot Z83 .3 FAMILY HISTORY OF DIABETES MELLITUS Procedures Code Description Performed By Per formed On 37.22 LEFT HEART CARDIAC CATH 02/23/2013 88.53 LT H EART ANGIOCARDIOGRAM 02/23/2013 88.56 TRINA EARNESTINE ARTERIOGR-2 CATH 02/23/2013 99.61 [facility] AL CARDIOVERSION 02/25/2013 99.62 HEAR T COUNTERSHOCK NEC 04/29/2015 99.61 [facility] AL CARDIOVERSION 05/27/2015 Results Test Result Range Automated blood complete blood count (he mogram) panel - 04/27/16 17:16 Blood leukocytes automated count (number/volume) 8.5 10*3/uL 4.3-11.0 Blood erythrocytes automated count (number/volume) 5.04 10*6/uL 4.35-5.85 Venous blood hemoglobin measurement (mass/volume) 14.7 g/dL 13.3-17.7 Blood hematocrit (volume fraction) 42 % 40-54 Automated erythrocyte mean corpuscular volume 84 [ foz_us] 80-99 Automated erythrocyte mean corpuscular h emoglobin (mass per erythrocyte) 29 pg 25-34 Automated erythrocyte mean corpuscular h emoglobin concentration measurement (mass/volume) 35 g/dL 32-36 Automated erythrocyte distribution width ratio 14. 2 % 10.0- 14.5 Automated blood platelet count (count/volume) 300 10*3/uL 130-400 Automated blood platelet mean volume measurement 9.6 [foz_us] 7.4-10.4 Comprehensive metabolic panel - 04/27/16 17:16 Serum or plasma sodium measurement (moles/volume) 137 mmol/L 135-145 Serum or plasma potassium measurement (moles/volume) 3.9 mmol/L 3.6-5.0 Serum or plasma chloride measurement (moles/volume) 108 mmol/L 98-107 Carbon dioxide 21 mmol/L 21-32 Serum or plasma anion gap determination (moles/volume) 8 mmol/L 5-14 Serum or plasma urea nitrogen measurement (mass/volume ) 19 mg/dL 7-18 Serum or plasma creatinine measurement (mass/volume) 0.92 mg/dL 0.60-1.30 Serum or plasma urea nitrogen/creatinine mass ratio 21 NRG Serum or plasma creatinine measurement w ith calculation of estimated glomerular filtration rate > NRG Serum or plasma glucose measurement (mass/volume) 99 mg/dL 70-105 Serum or plasma calcium measurement (mass/volume) 9.0 mg/dL 8.5-10.1 Serum or plasma total bilirubin measurement (mass/volu me) 1.0 mg/dL 0.1-1.0 Serum or plasma alkaline phosphatase dunia surement (enzymatic activity/volume) 88 U/L 40-136 Serum or plasma aspartate aminotransfera se measurement (enzymatic activity/volume) 31 U/L 5-34 Serum or plasma alanine aminotransferase measurement (enzymatic activity/volume) 54 U/L 0-55 Serum or plasma protein measurement (mass/volume) 6.6 g/dL 6.4-8.2 Serum or plasma albumin measurement (mass/volume) 4.0 g/dL 3.2-4.5 Serum or plasma lithium measurement (mol es/volume) - 04/27/16 17:16 BNP level 107.2 pg/mL <100.0 Automated blood complete blood count (he mogram) panel - 04/28/16 03:51 Blood leukocytes automated count (number/volume) 10.2 10*3/uL 4.3-11.0 Blood erythrocytes automated count (number/volume) 5.11 10*6/uL 4.35-5.85 Venous blood hemoglobin measurement (mass/volume) 14.6 g/dL 13.3-17.7 Blood hematocrit (volume fraction) 43 % 40-54 Automated erythrocyte mean corpuscular volume 84 [ foz_us] 80-99 Automated erythrocyte mean corpuscular h emoglobin (mass per erythrocyte) 29 pg 25-34 Automated erythrocyte mean corpuscular h emoglobin concentration measurement (mass/volume) 34 g/dL 32-36 Automated erythrocyte distribution width ratio 14. 3 % 10.0- 14.5 Automated blood platelet count (count/volume) 294 10*3/uL 130-400 Automated blood platelet mean volume measurement 9.5 [foz_us] 7.4-10.4 Comprehensive metabolic panel - 04/28/16 03:51 Serum or plasma sodium measurement (moles/volume) 138 mmol/L 135-145 Serum or plasma potassium measurement (moles/volume) 4.2 mmol/L 3.6-5.0 Serum or plasma chloride measurement (moles/volume) 105 mmol/L 98-107 Carbon dioxide 19 mmol/L 21-32 Serum or plasma anion gap determination (moles/volume) 14 mmol/L 5-14 Serum or plasma urea nitrogen measurement (mass/volume ) 22 mg/dL 7-18 Serum or plasma creatinine measurement (mass/volume) 1.00 mg/dL 0.60-1.30 Serum or plasma urea nitrogen/creatinine mass ratio 22 NRG Serum or plasma creatinine measurement w ith calculation of estimated glomerular filtration rate > NRG Serum or plasma glucose measurement (mass/volume) 100 mg/dL 70-105 Serum or plasma calcium measurement (mass/volume) 9.0 mg/dL 8.5-10.1 Serum or plasma total bilirubin measurement (mass/volu me) 1.0 mg/dL 0.1-1.0 Serum or plasma alkaline phosphatase dunia surement (enzymatic activity/volume) 85 U/L 40-136 Serum or plasma aspartate aminotransfera se measurement (enzymatic activity/volume) 27 U/L 5-34 Serum or plasma alanine aminotransferase measurement (enzymatic activity/volume) 50 U/L 0-55 Serum or plasma protein measurement (mass/volume) 6.4 g/dL 6.4-8.2 Serum or plasma albumin measurement (mass/volume) 4.0 g/dL 3.2-4.5 Serum or plasma lithium measurement (mol es/volume) - 04/28/16 03:51 BNP level 67.6 pg/mL <100.0 Lipid Panel - 10/19/16 14:51 C/HDL 7.3 3.7-6.7 Cholesterol 189 mg/dL 100-240 HDL 26 mg/dL 30-85 LDL-Calculated 128 mg/dL 0-100 Trig 177 mg/dL 35-160 VLDL 35 mg/dL 0-42 Testosterone,Free and Total - 04/10/17 1 4:30 FREE TESTOSTERONE(DIRECT) 15.0 PG/ML 6.8 -21.5 TESTOSTERONE, SERUM 734 NG/DL [id number] Urinalysis - 04/19/17 14:47 Icotest N/A Negative Urine Volume Urine Volume Sufficient (10mL) Urine Yeast No Yeast present Urine-Appearance Clear Clear Urine-Bacteria Negative Urine-Bilirubin Negative Negative Urine-Blood Negative Negative Urine-Color Yellow Colorless-[place] Urine-Epithelial Cells 0-5/HPF Urine-Glucose Negative Negative Urine-Ketones Negative Negative Urine-Leukocytes Negative Negative Urine-Nitrite Negative Negative Urine-Other Urine Saved if Culture Need ed (48hrs from time of collection) Urine-pH 6.0 5-8.5 Urine-Protein Negative Negative Urine-RBC Rare/HPF Urine-Specific [place] 1.020 1.000-1 .030 Urine-WBC Negative Urobilinogen 0.2 0.2-1.0 Comprehensive Metabolic Panel - 04/19/17 14:47 Albumin 4.7 g/dL 3.6-5.1 ALP 90 U/L 35-130 ALT 42 U/L 6-45 Anion Gap 14 6-14 AST 24 U/L 2-40 BUN 13 mg/dL 5-25 Calcium 9.8 mg/dL 8.3-10.4 Chloride 105 mmol/L 95-114 CO2 25 mEq/L 22-33 Creat 1.20 mg/dL 0.50-1.50 eGFR 65 mL/min/1.73m2 >59 Globulin 3.4 g/dL 2.3-3.5 Glucose 79 mg/dL 70-110 Osmo 288 280-295 Potassium 4.1 mmol/L 3.5-5.3 Sodium 140 mmol/L 134-148 TBil 0.4 mg/dL 0.2-1.2 TP 8.1 g/dL 6.0-8.3 Holter Monitor 48 hour - 04/19/17 16:16 Holter Monitor 48 Hour Complete Thyroid Stimulating Hormone - 05/05/17 0 8:17 TSH 1.70 mIU/mL 0.32-5.00 Comprehensive Metabolic Panel - 06/17/17 23:04 Albumin 4.1 g/dL 3.6-5.1 ALP 79 U/L 35-130 ALT 43 U/L 6-45 Anion Gap 15 6-14 AST 24 U/L 2-40 BUN 13 mg/dL 5-25 Calcium 9.2 mg/dL 8.3-10.4 Chloride 106 mmol/L 95-114 CO2 22 mEq/L 22-33 Creat 1.06 mg/dL 0.50-1.50 eGFR 74 mL/min/1.73m2 >59 Globulin 2.8 g/dL 2.3-3.5 Glucose 102 mg/dL 70-110 Osmo 287 280-295 Potassium 3.9 mmol/L 3.5-5.3 Sodium 139 mmol/L 134-148 TBil 0.7 mg/dL 0.2-1.2 TP 6.9 g/dL 6.0-8.3 Urinalysis - 06/17/17 23:04 Icotest N/A Negative Urine Volume Urine Volume Sufficient (10mL) Urine Yeast No Yeast present Urine-Appearance Clear Clear Urine-Bacteria Negative Urine-Bilirubin Negative Negative Urine-Blood Negative Negative Urine-Color Yellow Colorless-[place] Urine-Epithelial Cells 0-5/HPF Urine-Glucose Negative Negative Urine-Ketones Negative Negative Urine-Leukocytes Negative Negative Urine-Nitrite Negative Negative Urine-Other Urine Saved if Culture Need ed (48hrs from time of collection) Urine-pH 6.0 5-8.5 Urine-Protein Negative Negative Urine-RBC Negative Urine-Specific [place] 1.015 1.000-1 .030 Urine-WBC Negative Urobilinogen 0.2 0.2-1.0 IFOBT Occult Blood - 06/17/17 23:04 IFOBT Occult Blood NEGATIVE Negative Comprehensive Metabolic Panel - 06/21/17 19:33 Albumin 4.6 g/dL 3.6-5.1 ALP 92 U/L 35-130 ALT 46 U/L 6-45 Anion Gap 19 6-14 AST 31 U/L 2-40 BUN 9 mg/dL 5-25 Calcium 9.8 mg/dL 8.3-10.4 Chloride 105 mmol/L 95-114 CO2 22 mEq/L 22-33 Creat 1.07 mg/dL 0.50-1.50 eGFR 74 mL/min/1.73m2 >59 Globulin 2.7 g/dL 2.3-3.5 Glucose 116 mg/dL 70-110 Osmo 293 280-295 Potassium 4.1 mmol/L 3.5-5.3 Sodium 142 mmol/L 134-148 TBil 0.4 mg/dL 0.2-1.2 TP 7.3 g/dL 6.0-8.3 West Nile Virus Antibody,Serum - 7 19:33 [place] VIRUS, IGG NEGATIVE NEGATIVE [place] VIRUS, IGM NEGATIVE NEGATIVE Zika Virus, Igm, Serum - 06/21/17 19:33 ZIKA VIRUS IGM (EUA) NEGATIVE NEGATIVE Surgical Pathology - 07/10/17 11:40 Surg Path Sent to [facility] PSA Yearly Screen - 01/05/18 08:00 PSA TOTAL 1.0 ng/mL 0.0-4.0 Testosterone - 01/05/18 08:00 Testosterone 420.76 ng/dL Thyroid Stimulating Hormone - 07/13/18 1 5:00 TSH 1.96 mIU/mL 0.32-5.00 Thyroid Stimulating Hormone - 11/03/18 0 9:23 TSH 1.91 mIU/mL 0.32-5.00 Testosterone,Free and Total - 11/03/18 0 9:23 FREE TESTOSTERONE(DIRECT) 13.6 PG/ML 6.8 -21.5 TESTOSTERONE, SERUM 599 NG/DL 264-916 Hemoglobin A1C - 05/24/19 08:20 Hemoglobin A1C - 06/04/19 15:20 % A1C 7.20 % 5.40-6.60 AvGlu 180 mg/dL 70-110 Capillary blood glucose measurement by g lucometer (mass/volume) - 08/09/19 07:27 Capillary blood glucose measurement by glucometer (mas s/volume) 99 mg/dL 70-110 Capillary blood glucose measurement by g lucometer (mass/volume) - 08/16/19 06:22 Capillary blood glucose measurement by glucometer (mas s/volume) 92 mg/dL 70-110 Encounters ACCT No. Visit Date/Time Discharge Status Pt. Type Provider Facility Loc./Unit Complaint [id number] 07/17/2019 14:44:00 07/17/2019 23:59: 00 DIS Outpatient Leia, Jaimie [id number] 06/24/2019 15:31:00 06/24/2019 23:59: 00 DIS Outpatient Leia, Jaimie [id number] 06/13/2019 14:03:00 06/13/2019 23:59: 00 DIS Outpatient Leia, Jaimie [id number] 06/04/2019 17:07:00 06/04/2019 23:59: 00 DIS Outpatient Leia, Jaimie [id number] 06/04/2019 14:51:00 06/04/2019 23:59: 00 DIS Outpatient Leia, Jaimie [id number] 05/24/2019 08:50:00 05/24/2019 23:59: 00 DIS Outpatient Leia, Jaimie [id number] 05/24/2019 08:20:00 05/24/2019 23:59: 00 DIS Outpatient Leia, Jaimie [id number] 05/16/2019 15:29:00 05/16/2019 23:59: 00 DIS Outpatient Leia, Jaimie [id number] 03/25/2019 12:58:00 03/25/2019 23:59: 00 DIS Outpatient NETTA JUAN [id number] 02/13/2019 15:20:00 02/13/2019 23:59: 00 DIS Outpatient LeiaJaimie [id number] 11/03/2018 09:22:00 11/03/2018 23:59: 00 DIS Outpatient Leia, Jaimie [id number] 07/13/2018 18:20:00 07/13/2018 23:59: 00 DIS Outpatient Brianne Leary [id number] 01/05/2018 16:06:00 01/05/2018 23:59: 00 DIS Outpatient Jaimie Dupree [id number] 07/10/2017 11:11:00 07/10/2017 12:48: 00 DIS Outpatient Emeka Shah [id number] 07/05/2017 12:58:00 07/05/2017 23:59: 00 DIS Outpatient Emeka Shah [id number] 06/21/2017 19:18:00 06/21/2017 23:59: 00 DIS Outpatient Terrell Cui [id number] 06/21/2017 19:17:00 06/21/2017 23:59: 00 DIS Outpatient Terrell Cui [id number] 06/17/2017 22:26:00 06/18/2017 00:17: 00 DIS Outpatient Abby Nogueraica [id number] 05/05/2017 08:12:00 05/05/2017 23:59: 00 DIS Outpatient NETTA JUAN [id number] 04/19/2017 14:20:00 04/19/2017 16:16: 00 DIS Outpatient [facility] [id number] 04/10/2017 14:30:00 04/10/2017 23:59: 00 DIS Outpatient Terrell Cui [id number] 04/10/2017 20:24:00 04/10/2017 20:24: 00 CAN Outpatient Terrell Cui [id number] 04/10/2017 09:12:00 04/10/2017 09:12: 00 CAN Outpatient Terrell Cui [id number] 02/13/2017 14:23:00 02/13/2017 14:50: 00 DIS Outpatient Law Posey [id number] 02/05/2017 10:30:00 02/05/2017 10:30: 00 DIS Outpatient Cristino Lincoln [id number] 02/02/2017 16:48:00 02/02/2017 18:37: 00 DIS Outpatient Taty [facility] ER [id number] 10/19/2016 14:42:00 10/19/2016 23:59: 00 DIS Outpatient NETTA JUAN [id number] 02/12/2019 15:26:00 Document Registration [id number] 11/08/2018 15:13:00 Document Registration [id number] 11/01/2018 15:18:00 Document Registration [id number] 01/05/2018 07:49:00 Document Registration [id number] 01/04/2018 15:37:00 Document Registration [id number] 12/20/2017 15:35:00 Document Registration [id number] 07/14/2017 09:24:00 Document Registration [id number] 06/21/2017 16:49:00 Document Registration [id number] 06/19/2017 10:41:00 Document Registration [id number] 04/19/2017 15:54:09 Document Registration [id number] 04/10/2017 13:49:00 Document Registration [id number] 08/16/2019 23:41:00 02:03:00 DIS Emergency TERELL CAPELLAN MD [facility] ER L EYE ISSUE [id number] 08/16/2019 06:10:00 08:00:00 DIS Outpatient LAMAR GAVIN MD [facility] CATARACT LEFT EYE [id number] 08/09/2019 06:49:00 08:23:00 DIS Outpatient LAMAR GAVIN MD [facility] CATARACT RIGHT EYE [id number] 08/07/2019 05:35:00 14:57:00 DIS Outpatient LAMAR GAVIN MD [facility] PREOP CATARACT RIGHT EYE [id number] 03/13/2019 14:54:00 23:59:59 CLS Preadmit EZEQUIEL MALAVE [facility] CARD AF,GERD,HTN,PAF,PALPITATIONS [id number] 06/03/2016 14:44:00 016 23:59:59 CLS Outpatient NETTA JUAN MD [facility] CARD PAF,PALPITATIONS [id number] 04/27/2016 16:40:00 016 09:00:00 DIS Outpatient NETTA JUAN MD [facility] [id number] 01/08/2016 12:10:00 016 12:10:00 DIS Inpatient NETTA JUAN MD [facility] ICU AFIB,RUNS OF VTACH [id number] 08/21/2015 13:09:00 015 23:59:59 CLS Outpatient NETTA JUAN MD [facility] CARD DYSPNEA,AFIB [id number] 08/20/2015 20:07:00 015 23:34:00 DIS Emergency ANUM CÁRDENAS DO [facility] ER DIFFICULTY BREATHING [id number] 07/24/2015 17:51:00 015 15:27:00 DIS Inpatient NETTA JUAN MD [facility] CSD AFIB [id number] 05/26/2015 20:25:00 015 08:50:00 DIS Inpatient NETTA JUAN MD [facility] ICU RECURRENT/PERSISTENT A FIB WITH RVR [id number] 05/01/2015 09:55:00 015 18:20:00 DIS Inpatient NETTA JUAN MD [facility] CSD DYSPNEA,FATIGUE,QT PROL ONGATION [id number] 04/30/2015 11:25:00 015 16:45:00 DIS Inpatient NETTA JUAN MD [facility] ICU AFIB PALPITATIONS OBESI TY [id number] 04/01/2015 20:03:00 015 05:30:00 DIS Outpatient NETTA JUAN MD [facility] SLEEP OBSERVED APNEAS SNORING HTN [id number] 03/27/2015 14:13:00 015 15:21:00 DIS Outpatient NETTA JUAN MD [facility] CATH AFIB CP [id number] 03/25/2015 03:00:00 015 18:30:00 DIS Inpatient NETTA JUAN MD [facility] ICU RECURRENT ATRIAL FIB W/ RVR [id number] 03/10/2015 10:57:00 015 13:50:00 DIS Emergency VITOR HUA MD [facility] ER IRR HEART RATE [id number] 04/06/2013 21:14:00 013 22:13:00 DIS Emergency GREY ARIAS, TORO Atkinson [facility] ER DIVERTICITIS [id number] 02/23/2013 04:26:00 013 15:15:00 DIS Inpatient BETZAIDA ARIAS FACC, GABE BASSETTP CCD S [facility] CSD A-FIB W/ RVR [id number] 02/18/2013 15:25:00 013 14:00:00 DIS Inpatient DRAKE ARIAS, NETTA Marshall [facility] ICU AFIB W RVR, N/V [id number] 10/08/2014 12:59:[address] Document Registration CARLOS SCANLON DO [facility] RAD [id number] 11/02/2012 16:12:00 Document Registration
== END 2019-08-09 08:23 | disposition home or self-care (01) ==
LOC: SDC 06:49
PROVIDERS: ATTEND Specialist
DX: E11.36 Type 2 diabetes mellitus with diabetic cataract (principal); H25.11 Age-related nuclear cataract, right eye; I10 Essential (primary) hypertension; I48.91 Unspecified atrial fibrillation; G47.33 Obstructive sleep apnea (adult) (pediatric); E78.00 Pure hypercholesterolemia, unspecified; F32.9 Major depressive disorder, single episode, unspecified; F41.9 Anxiety disorder, unspecified; Z79.899 Other long term (current) drug therapy; Z79.84 Long term (current) use of oral hypoglycemic drugs; Z83.3 Family history of diabetes mellitus; Z80.3 Family history of malignant neoplasm of breast
CPT/HCPCS: 82962

== ENCOUNTER 2019-08-16 06:10 | Day surgery (SDC) | payer BC ==
[~2019-08-16] VITALS: Ht 180.3 cm; Wt 127.0 kg
[~2019-08-16 06:10] MED LIST changes: +METO-370 PO; +METO-395 PO; -METO50TA7 PO; -MTP100TCR PO
[2019-08-16 06:18] VITALS: BP 139/80
[2019-08-16] MEDS: TETRACAINE 0.5% OPHTH SOLN 4 ML BTL (SINGLE DOSE ONLY) OU PRN ×4 (06:24→06:49)
[2019-08-16] MEDS ORDERED: TIMOLOL MALEATE 0.5% 5 ML (TIMOPTIC) BTL OU PRN (06:30)
[2019-08-16] MEDS ORDERED: POVIDONE (BETADINE) OPHTH SOLN 5% 30 ML OP ONE (06:30)
[2019-08-16] MEDS ORDERED: LIDOCAINE PF 1% 2 ML AMP IR PRN (06:30)
[2019-08-16] MEDS ORDERED: MOXIFLOXACIN OPHTH SOLN 5 MG/ML 0.3 ML SYRINGE OP ONE (06:30)
[2019-08-16] MEDS: CYCLOPENTOLATE 1% (CYCLOGYL) 2 ML DROPS OP SCH ×3 (06:35→06:49)
[2019-08-16] MEDS: PHENYLEPHRINE 10% OPHTH (NEO-SYN) 5 ML BTL OU SCH ×3 (06:35→06:49)
--- NOTE | 2019-08-16 06:51 | Ophthalmologist Pre-Op Note ---
Pre-Operative Progress Note H&P Reviewed The H&P was reviewed, patient examined and no changes noted. Date H&P Reviewed: Aug 16, 2019 Time H&P Reviewed: 06:51 Pre-Op Dx Cataract, Left Eye LAMAR GAVIN MD Aug 16, 2019 06:51 POS
[2019-08-16] MEDS ORDERED: MIDAZOLAM 2 MG/2 ML (VERSED) VIAL ONE (06:53)
[2019-08-16] MEDS ORDERED: CARBACHOL 1.5 ML (MIOSTAT) VIAL IO ONE (07:23)
[2019-08-16] MEDS ORDERED: acetaZOLAMIDE ER 500 MG CAP (DIAMOX SEQUELS) PO ONE (07:30)
--- NOTE | 2019-08-16 07:35 | Ophthalmology Operative Report ---
Cataract removal/placement IOL PREOPERATIVE DIAGNOSIS: Cataract Left Eye POSTOPERATIVE DIAGNOSIS: Cataract Left Eye PROCEDURE: Cataract removal and placement of posterior chamber implant, left eye SURGEON: Javier Gavin ANESTHESIA: Topical with sedation COMPLICATIONS: PC Tear without vitreous loss ESTIMATED BLOOD LOSS: Minimal DESCRIPTION OF PROCEDURE: After proper informed consent was obtained, the patient, a 48 male, was taken to the Operating Room and the left eye was anesthetized with tetracaine. The left eye was then prepped and draped in the usual manner. A wire lid speculum was p laced. A paracentesis was made at the left hand position. Preservative free lidocaine was injected into the anterior chamber followed by viscoelastic. A clear corneal incision was made in the temporal position. A capsulorrhexis was preformed and the central nuclear and cortical material were removed. A capsular tear occurred with vitreous loss An Solo [id number] 20.5 was placed into the sulcus. The residual viscoelastic was aspirated. Miochol was injected into the anterior chamber. Moxifloxacin was injected into the anterior chamber. The wound was checked and found to be water tight. The patient tolerated the procedure well without complications. JAVIER GAVIN MD Aug 16, 2019 07:35 POS
[2019-08-16 08:00] VITALS: BP 138/79
--- NOTE | 2019-08-16 12:34 | Anesthesia-General Post-Op ---
MAC Patient Condition Mental Status/LOC: Same as Preop Cardiovascular: Satisfactory Nausea/Vomiting: Absent Respiratory: Satisfactory Pain: Controlled Complications: Absent Post Op Complications Complications None Follow Up Care/Instructions Patient Instructions None needed. Anesthesiology Discharge Order Discharge Order Patient is doing well, no complaints, stable vital signs, no apparent adverse anesthesia problems. No complications reported per nursing. GERMÁN SAEED CRNA Aug 16, 2019 12:34 POS
== END 2019-08-16 08:00 | disposition home or self-care (01) ==
LOC: SDC 06:10
PROVIDERS: ATTEND Specialist
DX: E11.36 Type 2 diabetes mellitus with diabetic cataract (principal); H25.12 Age-related nuclear cataract, left eye; E78.2 Mixed hyperlipidemia; E78.00 Pure hypercholesterolemia, unspecified; I25.10 Atherosclerotic heart disease of native coronary artery without angina pectoris; F32.9 Major depressive disorder, single episode, unspecified; F41.9 Anxiety disorder, unspecified; Z80.3 Family history of malignant neoplasm of breast; Z83.3 Family history of diabetes mellitus
CPT/HCPCS: 82962

== ENCOUNTER 2019-08-16 23:40 | Emergency (ER) | payer BC ==
[~2019-08-16] VITALS: Ht 180 cm; Wt 119.0 kg
[2019-08-17] MEDS ORDERED: TETRACAINE 0.5% OPHTH SOLN 4 ML BTL (SINGLE DOSE ONLY) OU ONE (00:45)
[2019-08-17] MEDS ORDERED: FLUORESCEIN (FLUOR-I-STRIPS) 1 MG STRP OU ONE (00:45)
--- NOTE | 2019-08-17 00:45 | ED EENT ---
History of Present Illness General Chief Complaint: Eye Problems Stated Complaint: L EYE ISSUE Source: patient, family Exam Limitations: no limitations History of Present Illness Date Seen by Provider: Aug 17, 2019 Time Seen by Provider: 00:29 Initial Comments Patient reports the ER by private conveyance with his son and chief complaint of flashes of light in his left eye starting about 11:00, hour and a half prior to examination. He had right eye cataract surgery on Monday, a week ago and his left eye was done this morning. He says the surgeon mentioned that they pierced his cornea and he had fluid running out of his eye. He was having some pain and felt that his vision was very dark and hard to see out of his left eye which was different from his right eye so he went to Dr. Martini around 12:30 yesterday afternoon and he did some tests on the eye and told him everything looked okay. The patient was instructed that if he had any flashes of light however he needed to get some help immediately but did not tell him specifically what to do. The patient said that by the time he got to the ER and signed in the flashes of light have stopped and not came back. Said they would be intermittent. He was also seeing a lot of floaters. He feels that it is very dark and hard to see out of his left eye. Allergies and Home Medications Allergies Coded Allergies: No Known Drug Allergies (Unverified , 08/07/19) Home Medications Amlodipine Besylate 10 Mg Tablet, 10 MG PO DAILY, (Reported) Apixaban 5 Mg Tablet, 5 MG PO BID, (Reported) Atorvastatin Calcium 10 Mg Tablet, 10 MG PO HS, (Reported) Docusate Sodium 100 Mg Capsule, 250 MG PO DAILY, (Reported) Escitalopram Oxalate 10 Mg Tablet, 10 MG PO DAILY, (Reported) Metformin HCl 500 Mg Tablet, 500 MG PO DAILY, (Reported) Metoprolol Succinate 100 Mg Tab.er.24h, 100 MG PO DAILY, (Reported) Pantoprazole Sodium 40 Mg Tablet.dr, 40 MG PO 1700, (Reported) Valsartan 160 Mg Tablet, 160 MG PO DAILY, (Reported) Patient Home Medication List Home Medication List Reviewed: Yes Review of Systems Review of Systems Constitutional: No chills, No fever, No malaise Eyes: See HPI; Denies Blindness; Blurred Vision Ears: Denies Dizziness, Denies Pain Nose: denies clots, denies congestion Mouth: denies clots, denies loose teeth Throat: denies pain, denies swelling Respiratory: No cough, No dyspnea on exertion Cardiovascular: No chest pain, No edema Gastrointestinal: No abdominal pain, No constipation Past Gvfylzm-Rsgicu-Tgslmw Hx Patient Social History Alcohol Use: Denies Use Recreational Drug Use: No Smoking Status: Never a Smoker Type Used: Smokeless Tobacco Recent Foreign Travel: No Contact w/Someone Who Travel: No Recent Hopitalizations: No Immunizations Up To Date Tetanus Booster (TDap): More than 5yrs PED Vaccines UTD: No Date of Pneumonia Vaccine: January 27, 2015 Seasonal Allergies Seasonal Allergies: No Past Medical History Surgeries: Yes (HEART CATH 02/2015, CARDIOVERSIONS, ABLATION FOR A FIB X2, COLONOSCOPIES) Cardiac Respiratory: Yes (CPAP) Sleep Apnea Currently Using CPAP: Yes Currently Using BIPAP: Yes Cardiac: Yes Atrial Fibrillation, Hypertension Neurological: No Reproductive Disorders: Yes (LOW TESTOSTERONE--GETS WEEKLY INJECTIONS) Sexually Transmitted Disease: No HIV/AIDS: No Genitourinary: No Gastrointestinal: Yes Gastroesophageal Reflux, Diverticulosis Musculoskeletal: No (RIGHT LITTLE FINGER DISLOCATION) Endocrine: Yes Hyperthyroidism, Diabetes, Non-Insulin dep HEENT: No Cancer: No Psychosocial: Yes Anxiety, Depression Integumentary: Yes ("FEVER BLISTERS" ) Blood Disorders: No Adverse Reaction/Blood Tranf: No Family Medical History Alzheimer's disease UNCLE Completed stroke 19 FATHER 19 MOTHER Diabetes mellitus 19 MOTHER FH: breast cancer 19 MOTHER FH: cancer GRANDMOTHER GRANDMOTHER FH: congestive heart failure 19 MOTHER Hypertension 19 FATHER Physical Exam Vital Signs Vital Signs - First Documented 08/17/19 00:08 Temp 36.6 Pulse 63 Resp 18 B/P (MAP) 132/83 (99) O2 Delivery Room Air Height, Weight, BMI Height: 5'11.00" Weight: 253lbs. 8.0oz. 114.976729lb; 35.5 BMI Method:Stated General Appearance: WD/WN, mild distress Eyes: left eye other (pupil is pinpoint and nonresponsive to light. Unable to do funduscopic exam. No erythema or injection); bilateral eye EOMI Ears: bilateral ear auricle normal, bilateral ear canal normal Nose: normal inspection; No active bleeding Mouth/Throat: normal mouth inspection, pharynx normal Cardiovascular: normal peripheral pulses, regular rate, rhythm Neurologic/Psychiatric: alert, normal mood/affect Progress/Results/Core Measures Results/Orders My Orders Orders - TERELL CAPELLAN Tetracaine 0.5% Ophth Michelle Sdv (Tetracai (08/17/19 00:45) Fluorescein Strips (Yudch-P-Gyotcf) (08/17/19 00:45) Medications Given in ED Current Medications Medications Dose Ordered Sig/Ellie Route Start Time Stop Time Status Last Admin Dose Admin Fluorescein Sodium 1 mg ONCE ONCE OU 08/17/19 00:45 08/17/19 00:46 DC 08/17/19 01:15 1 MG Tetracaine HCl 4 ml ONCE ONCE OU 08/17/19 00:45 08/17/19 00:46 DC 08/17/19 01:15 4 ML Vital Signs/I&O 08/17/19 00:08 Temp 36.6 Pulse 63 Resp 18 B/P (MAP) 132/83 (99) O2 Delivery Room Air Progress Progress Note #1: Time: 00:44 Progress Note He is 20/20 right eye and 20/40 left eye. We plan to use fluorescein to stain the eye and then do tonometry. We will then consult with optometry. Progress Note #2: Time: 01:34 Progress Note Tonometry pen is 15 and 16 mmHg on the left eye. Worsening stain fails to reveal any significant laceration or ulceration. Consults : Consulting Physician: BELLA KOTHARI OD Consults Notes 0135: Left VM. 0140: Discussed case and findings. Dr. Kothari is familiar with the patient's case over he has not met the patient yet. He is expecting to see the patient this morning in follow-up at the clinic. We went over the floaters, flashing light and pinpoint pupil and with the tonometry under 20 Saniya says this is the expected first day postop changes. He says to reassure the patient and encourage him to follow up at his appointment this morning. He clarified that the patient apparently was very anxious with the procedure and had removed while under the vertical instruments and there was a ruptured lens capsule and there was some concerns at the posterior viscous humeral would leak forward. This could result in increased pressures anteriorly but since we have ruled out out tonight there is no further concerns at this time. Departure Impression Primary Impression: Cataract Disposition: 01 HOME, SELF-CARE Condition: Stable Departure-Patient Inst. Decision time for Depature: 01:49 Referrals: PERICO TEJADA (PCP/Family) Primary Care Physician Patient Instructions: Cataracts (DC) Add. Discharge Instructions: Keep your scheduled follow-up appointment with Dr. Kothari today. At this point the flashes of light are not concerning because they may indicate increased pressure in the eye but we have ruled that out. All discharge instructions reviewed with patient and/or family. Voiced understanding. TERELL CAPELLAN Aug 17, 2019 00:44 POS
[2019-08-17 02:01] VITALS: BP 130/82
== END 2019-08-17 02:03 | disposition home or self-care (01) ==
LOC: EDUNIT# 23:40 → ER 23:41
DX: E11.36 Type 2 diabetes mellitus with diabetic cataract (principal); I10 Essential (primary) hypertension; I48.91 Unspecified atrial fibrillation; G47.30 Sleep apnea, unspecified; K21.9 Gastro-esophageal reflux disease without esophagitis; F41.9 Anxiety disorder, unspecified; F32.9 Major depressive disorder, single episode, unspecified; E05.90 Thyrotoxicosis, unspecified without thyrotoxic crisis or storm; Z99.89 Dependence on other enabling machines and devices; Z79.01 Long term (current) use of anticoagulants; Z79.84 Long term (current) use of oral hypoglycemic drugs; Z95.9 Presence of cardiac and vascular implant and graft, unspecified; Z80.3 Family history of malignant neoplasm of breast; Z82.49 Family history of ischemic heart disease and other diseases of the circulatory system
CPT/HCPCS: 99282

== ENCOUNTER 2020-02-26 15:11 | Outpatient (RCR) | payer BC ==
[~2020-02-26 15:11] MED LIST changes: -METO-370 PO; -METO-395 PO; +METO50TA7 PO; +MTP100TCR PO; -PANT40TA3 PO; +PANT40TA52 PO
[2020-02-26] MEDS ORDERED: ASPI-808 PO (15:41)
[2020-02-28] MEDS ORDERED: METH4TAB10 PO (22:48)
== END 2020-05-26 | disposition home or self-care (01) ==
LOC: PREOP 15:11
PROVIDERS: ATTEND Surgery
DX: Z01.818 Encounter for other preprocedural examination (principal)

== ENCOUNTER 2020-02-27 08:43 | Day surgery (SDC) | payer BC ==
[2020-02-27] VITALS (11 sets, daily range): BP systolic 106–159; BP diastolic 59–84
[~2020-02-27] VITALS: Ht 180.3 cm; Wt 119.0 kg
[~2020-02-27 08:43] MED LIST changes: +ASPI-808 PO; +PANT40TA3 PO; -PANT40TA52 PO
[2020-02-27] MEDS ORDERED: ceFAZolin 2 GM IV Premixed 50 ML IV ONE (09:00)
--- OUTSIDE RECORDS SUMMARY | 2020-02-27 09:15 | XMS REPORT | Clinical Summary ---
Author Author [facility] Organization [facility] Address Unknown Phone Unavailable Care Team Providers Care Team Lead Name Role Phone Sonja Pritchard RN Unavailable Unavailable Terrell Cui MD PCP Source Comments Some departments are not documenting in the electronic medical record. If you d o not see the information that you expected, contact Release of Information in [facility] [employer] Information Management department at [phone] for further assistan ce in locating additional records.[facility] Allergies Comments Active Allergy Reactions Severity Noted [...] There was also concern in the remote md st that Amiodarone that he had been [...] was ultimately discontinued. [facility] were rare, [...] T4 of 1.65. Apple hancock saw an thermal technician. He was initiated on Prednisone, and Methimazol e. 06/01/15 He had recurrent AFIB. He has c ontinued to have intermittent recurrent AFIB, as well as some recurre nt AFL detected through his [employer] LinQ Monitor. 06/05/15 OV: Given his [...] as well. 07/03/15 - 07/08/15 Hospitalized at [facility] in with severe Hepatitis and markedly elevated [...] least in half, following carefully with his thermal technician to m aintain euthyroidism, and use his [...] 03/27/15 LINQ implant (Dr. Cobb). SN RL [id number] Paroxysmal atrial fibrillation Overview: 02/2013 EULOGIO/DCCV (Dr. Cobb) 03/2015 EULOGIO/DCCV (Dr. Cobb) 06/03/16 - Holter: (Dr Cobb) - 48 hours : SR with occasional PVC's, V-couplets, 1 episode of 3 beats NSVT, mnomorphic, LBBB morphology. Hypertension due to endocrine disorder GERD (gastroesophageal reflux disease) AIMEE (obstructive sleep apnea) Overview: 04/08/15 Sleep Study ([facility]ia [facility]): Obstructive sleep apnea-hypopnea syndrome. [...] Health Maintenance Due Date Last Done Comments HIV SCREENING 12/15/1983 DTAP/TDAP VACCINES (1 - 1986 Tdap) HEPATITIS C SCREENING 1986 PHYSICAL (COMPREHENSIVE) 1986 EXAM COLORECTAL CANCER 2018 SCREENING SHINGLES RECOMBINANT 2018 VACCINE (1 of 2) INFLUENZA VACCINE 06/04/2020 05/28/2015, 06/22/2001, 06/30/2000, Additional history exists Implants Device Identifier Shelf Expiration Date Model / Serial / L ot Implanted Type Area Manufactur er Loop Recorder Loop Recorder Results Not on filefrom Last 3 Months Insurance Type Payer Benefit Subscriber ID Effective Phone Address Plan / Dates Group PPO BC[facility] xxxxxxxxxxxx 2014-P [facility] [place] BLUE [phone] Advance Directives 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
--- OUTSIDE RECORDS SUMMARY | 2020-02-27 09:16 | XMS REPORT ---
Author Author iCrimefighter. 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[employer] [facility] Address [address] [place] [address] Care Team Providers Care Flipping Machine Operator Name Role Phone YUNIOR NGO Unavailable NETTA JUAN MD Unavailable Unavailable NETTA JUAN MD Unavailable Unavailable TORO EDMONDS MD Unavailable Unavailable BETZAIDA ARIAS FAC, [facility] CCDS Unavailable UnavailANUM Martinez DO Unavailable Unavailable VITOR HUA MD Unavailable Unavailable YUNIOR NGO MD Unavailable Unavailable CARLOS SCANLON DO Unavailable Unavailable BET[facility]IDA [facility]AS [facility], [facility] CCD[facility] Unavailable Unavailabl e DRAKE, BASHAR Unavailable Unavailable DRAKE, BASHAR Unavailable Unavailable DRAKE, BASHAR Unavailable Unavailable LALO RED Unavailable Unavailable HARMEET, MALLIKA Unavailable Unavailable HARMEET, MALLIKA Unavailable Unavailable PAONI, MATT Unavailable Unavailable PAONI, MATT Unavailable Unavailable PAONI, MATT Unavailable Unavailable TERRELL, PERICO Unavailable Unavailable TERRELL PERICO Unavailable Unavailable YAN TEJADAHRYN Unavailable Unavailable ANUM CÁRDENAS DO Unavailable Unavailable NETTA JUAN MD Unavailable Unavailable NETTA JUAN MD Unavailable Unavailable VITOR HUA MD Unavailable Unavailable DRAKE BASVIVIAN Unavailable Unavailable DRAKE, BASHAR Unavailable Unavailable DRAKE, BASHAR Unavailable Unavailable BETZAIDA ARIAS [facility] CCDS Unavailable Unavailabl e COSENS CARPENTER, CARLOS L Unavailable Unavailable BROWN, YUNIOR Unavailable Unavailable BROWN, YUNIOR Unavailable Unavailable BROWN, YUNIOR Unavailable Unavailable JAK PATRICIA Unavailable Unavailable JAK PATRICIA Unavailable Unavailable PATRICIA BENEDICT Unavailable Unavailable WENDY DIAZ DO Unavailable Unavailable WENDY DIAZ DO Unavailable Unavailable LAMAR GAVIN MD Unavailable Unavailable YUNIOR NGO PCP TEERLL CAPELLAN Unavailable Unavailable TERRELL, PERICO H TRACK PATROL PCP Unavailable Unavailable Unavailable Unavailable Unavailable Unavailable Unavailable Unavailable Unavailable Unavailable Allergies Normalized Allergy Reported Date of Reaction(s) Care Provider Facility Allergy Type classification allergen Allergy Onset DA (20 Unclassified No Known Drug 05-01-2015 - no information NETTA JUAN , Not Available sources.) Allergies (33849) no information Unclassified NO KNOWN DRUG NO KNOWN DRUG LALO PUCKETT Not Available (20 sources.) ALLERGIES ALLERGIES, (68375) UNKNOWN Medications Medication Ingredient Drug Dose Dates Status Sig Sig Care Class(es) (Normalized) (Original) Provid er atorvastati atorvastati HMG-CoA no no Atorvastatin no n 10 mg n Reductase informat information Calcium nam e oral tablet Inhibitor ion Active 10 (4 ORAL Bedtime sources.) no Docusate no 200 mg 08-07-20 Complete no Docusate no information Sodium information 19 d information Sodium name (4 Discontinued sources.) 200 ORAL Today At 7:00PM August 07, 2019 TAKES 2 (100MG) CAPSULES escitalopra Escitalopra Serotonin no no Escitalopr am no m 10 mg m Reuptake informat information Oxalate name oral tablet Inhibitor ion Active 10 (4 ORAL Daily sources.) no Lactated no 07-10-20 no no no no information Ringer's information 17 - informat information inf ormation name (1 source.) Solution 07-11-20 ion 17 no Meclizine Antiemetic 25 mg 04-19-20 no no no no information 17 - informat information information name (1 source.) 04-19-20 ion 17 metFORMIN metFORMIN Biguanide no no Metformin no hydrochlori informat information Hcl Active name de 500 mg ion 500 ORAL oral tablet Daily (4 sources.) valsartan valsartan Angiotensin no no Valsartan n o 160 mg oral 2 Receptor informat information Active 160 name tablet (4 Francisca ion ORAL Daily sources.) NEGATED no no 100 mg 06-18-20 no no no no no information information 17 - informat information infor mation name information 06-27-20 ion (1 source.) 17 NEGATED no no 40 mg 10-15-20 no no no no no information information 17 - informat information infor mation name information 06-18-20 ion (1 source.) 17 NEGATED no no 06-18-20 no no no no no information information 17 - informat information infor mation name information 06-18-20 ion (1 source.) 17 Problems Active Problems Problem Normalized Date Last Normalized Normalized Provider Fa adithyaty Classification Problem(s) Recorded Problem Problem Sta tus Duration Other liver Abnormal Episodic Active NETTA JUAN [facility] Vi a diseases (6 levels of [facility] sources.) other serum Hospital - enzymes [place] (77518) Other upper Abscess, Episodic Active PERICO TERRELL Hospita l respiratory furuncle and [facility] of disease (6 carbuncle of [place] sources.) nose [facility] (65411) Other upper Acute upper Episodic Active PATRICIA BENEDICT Hosp ital respiratory respiratory [facility] of infections (6 infection, [place] sources.) unspecified [facility] (52278) Translations: [ ACUTE UPPER RESPIRATORY INFECTIONS OF UNSPECIFIED SITE] Cataract (15 Age-related Chronic Active YUNIOR BROWN Asc ension Via sources.) cataract 68502 Beckie Translations: [facility] [ AGE-RELATED (97001) NUCLEAR CATARACT, RIGHT EYE, AGE-RELATED NUCLEAR CATARACT, LEFT EYE, Cataract] Anxiety Anxiety Chronic Active [facility] disorders (21 disorder, [facility] of sources.) unspecified [place] Translations: [facility] () [ ANXIETY STATE, UNSPECIFIED] Coronary Atheroscleroti Chronic Active LAMAR GAVIN [facility] Via atherosclerosi c heart , [facility] s and other disease of Hospital - heart disease lovelock [place] (4 sources.) coronary (75641) artery without angina pectoris Cardiac Atrial no information Active NETTA JUAN , Not Available dysrhythmias fibrillation (49456) (26 sources.) Translations: [ PALPITATIONS, PALPITATIONS, TACHYCARDIA, UNSPECIFIED, PAROXYSMAL ATRIAL FIBRILLATION, TACHYCARDIA, UNSPECIFIED, ATRIAL FIBRILLATION] Other Body Mass Chronic Active NETTA JUAN [facility] Via nutritional; Index [facility] endocrine; and 32.0-32.9, Hospital - metabolic adult [place] disorders (5 (40084) sources.) Other Body Mass Chronic Active ALI BETZAIDA , Not Avail able nutritional; Index MD SANCHEZ (66527) endocrine; and 33.0-33.9, metabolic adult disorders (7 sources.) Other Body Mass Chronic Active NETTA JUAN [facility] Via nutritional; Index [facility] endocrine; and 34.0-34.9, Hospital metabolic adult [place] disorders (11 (63494) sources.) Skin and Carbuncle and Episodic Active PERICO TERRELL Hosp ital subcutaneous furuncle of [facility] of tissue face [place] infections (4 County (19665) sources.) Other and Cardiomegaly Chronic Active ANUM CÁRDENAS [facility] Via ill-defined , DO [facility] heart disease Hospital - (5 sources.) [place] (45839) Chronic Chronic airway Chronic Active NETTA JUAN [facility] Via obstructive obstruction, [facility] pulmonary not elsewhere Hospital - disease and classified [place] bronchiectasis Translations: (52422) (22 sources.) [ CHRONIC OBSTRUCTIVE PULMONARY DISEASE, U] Gastritis and Chronic Chronic Active TAKAAKI KIDO Hospit al duodenitis (2 superficial [facility] of sources.) gastritis [place] without County (15401) bleeding Translations: [ ATROPHIC GASTRITIS, WITHOUT MENTION OF HEMORRHAGE] External cause Civilian Episodic Active CARLOS SCANLON [facility] Via codes: activity done DO [facility] Unspecified (2 for income or Hospital - sources.) pay [place] (60837) Other lower Cough Episodic Active PERICO TERRELL Hospita l respiratory [facility] of disease (8 [place] sources.) [facility] (24895) Other lower Cough Episodic Active PERICO TERRELL [facility] respiratory [facility] of disease (8 [place] sources.) [facility] (97025) Crushing Crushing Episodic Active CARLOS SCANLON H Via injury or injury of DO [facility] internal finger(s) Hospital - injury (5 [place] sources.) (67150) Residual Dependence on Chronic Active TERELL TIMI [facility] V ia codes; other enabling [facility] unclassified machines and Hospital - (4 sources.) devices [place] (45672) Abdominal Diaphragmatic Episodic Active [facility] lucía hernia (2 hernia without [facility] of sources.) obstruction or [place] gangrene [facility] (74654) Translations: [ DIAPHRAGMATIC HERNIA WITH OBSTRUCTION] Diverticulosis Diverticulosis Chronic Active TORO EDMONDS , Not Available and of colon with (47010) diverticulitis hemorrhage (4 sources.) Translations: [ DVRTCLOS OF LG INT W/O PERFORATION OR ABSCESS W/O BLEEDING, DIVERTICULITIS COLON (W/O MENT OF HEMORR] Other Dysphagia, Episodic Active [facility] gastrointestin unspecified [facility] of al disorders [place] (1 source.) [facility] (86091) Other Dysphagia, Episodic Active [facility] gastrointestin unspecified [facility] of al disorders [place] (1 source.) [facility] (59250) Other lower Dyspnea, Episodic Active BASHAR DRAKE , [facility] Vi a respiratory unspecified [facility] disease (5 Hospital - sources.) [place] (00756) Residual Edema Episodic Active PERICO TERRELL Hospital codes; [facility] of unclassified [place] (2 sources.) [facility] (51902) Residual Edema, Episodic Active PERICO TERRELL Hospital codes; unspecified [facility] of unclassified [place] (2 sources.) [facility] (48044) Esophageal Esophageal Chronic Active BASHAR DRAKE , Not A vailable disorders (20 reflux (72167) sources.) Translations: [ GASTRO-ESOPHAG EAL REFLUX DISEASE WITH ESOPHAGITIS, GASTRO-ESOPHAG EAL REFLUX DISEASE WITHOUT, REFLUX ESOPHAGITIS, ESOPHAGEAL REFLUX] Essential Essential Chronic Active BASHAR DRAKE , Not Lorenza ilable hypertension (primary) () (20 sources.) hypertension Translations: [ MALIGNANT ESSENTIAL HYPERTENSION, HYPERTENSION NOS, MALIGNANT ESSENTIAL HYPERTENSION, ESSENTIAL (PRIMARY) HYPERTENSION, UNSPECIFIED ESSENTIAL HYPERTENSION] Residual Family history Episodic Active L[facility]AR ANLIKER [facility] Via codes; of diabetes , [facility] unclassified mellitus Hospital - (10 sources.) [place] (00107) Residual Family history Episodic Active TERELL TIMI [facility] Via codes; of ischemic Beckie unclassified heart disease Hospital - (4 sources.) and other [place] diseases of (82358) the circulatory system Residual Family history Episodic Active LAMAR ANLIKER [facility] Via codes; of malignant [facility] unclassified neoplasm of Hospital - (14 sources.) breast [place] () Diabetes Hyperglycemia, Episodic Active PERICO TERRELL Hos pital mellitus unspecified District [facility] of without Translations: Keenan complication [ IMPAIRED [facility] () (20 sources.) FASTING GLUCOSE, IMPAIRED FASTING GLUCOSE] Conduction Long QT Chronic Active BASHAR DRAKE , [facility] Via disorders (6 syndrome [facility] sources.) Hospital - [place] (89962) Other extermination inspector Episodic Active TERELL TIMI [facility] Via aftercare (4 (current) use Beckie sources.) of Hospital - anticoagulants [place] (48266) Other correction Episodic Active LAMAR ANLIKER [facility] Via aftercare (10 (current) use , [facility] sources.) of oral Hospital - hypoglycemic [place] drugs (08608) Other Long-term Episodic Active BASHAR DRAKE , [facility] Via aftercare (5 (current) use [facility] sources.) of Hospital - anticoagulants [place] (30370) Other Long-term Episodic Active VITOR HUA [facility] Via aftercare (10 (current) use , [facility] [place] sources.) of other Hospital - medications [place] (55225) Mood disorders Major Chronic Active [facility] ital (26 sources.) depressive District [facility]1 of disorder, [facility] (48226) episode, unspecified Translations: [ DEPRESSIVE DISORDER, NOT ELSEWHERE CLASSIFIED, MAJOR DEPRESSIVE DISORDER, RECURRENT EPISODE, UNSPECIFIED DEGREE, MAJOR DEPRESSIVE DISORDER, RECURRENT, UNSPECIFIED, MAJOR DEPRESSIVE DISORDER, SINGLE EPISODE, UNSPECIFIED] Substance-rela Nicotine Chronic [facility] , Not Available adama disorders dependence, (81469) (23 sources.) chewing tobacco, uncomplicated Translations: [ TOBACCO USE DISORDER, NICOTINE DEPENDENCE, UNSPECIFIED, UNCOMPLICATED] Other Obesity, Chronic Active ALI BETZAIDA , Not Availa ble nutritional; unspecified [facility] (70821) endocrine; and metabolic disorders (20 sources.) Other Obesity, Chronic Active [facility] nutritional; unspecified [facility] of endocrine; and [facility] (48286) disorders (18 sources.) Residual Obstructive Chronic Active NETTA DRAKE [facility] V ia codes; sleep apnea [facility] unclassified (adult) Hospital - (23 sources.) (pediatric) [place] (54863) Residual Obstructive Chronic Active NETTA JUAN [facility] V ia codes; sleep apnea [facility] unclassified (adult)(pediat Hospital - (21 sources.) benjamin) [place] (51367) Disorders of Other and Chronic Active NETTA DRAKE [facility] Via lipid unspecified [facility] metabolism (21 hyperlipidemia Hospital - sources.) Translations: [place] [ (85890) HYPERLIPIDEMIA , UNSPECIFIED, OTHER AND UNSPECIFIED HYPERLIPIDEMIA , PURE HYPERGLYCERIDE LASHAWN, PURE HYPERGLYCERIDE LASHAWN, PURE HYPERCHOLESTER OLEMIA, UNSPECIFIED, MIXED HYPERLIPIDEMIA ] Other Other anterior Chronic Active YUNIOR BROWN Not Available endocrine pituitary (23217) disorders (5 disorders sources.) Other upper Other disease Episodic Active [facility] spital respiratory of nasal District [facility]1 of disease (2 cavity and Hussein sources.) sinuses [facility] (65046) Other Other Chronic Active [facility] nutritional; disorders of [facility] of endocrine; and lipoid [place] metabolic metabolism [facility] (56897) disorders (13 sources.) Other Other long Episodic Active BASHAR DRAKE , [facility] Vi a aftercare (11 term (current) [facility] sources.) drug therapy [facility] (14717) Malaise and Other malaise Episodic Active PERICO TERRELL Ho spital fatigue (10 and fatigue [facility] of sources.) Translations: [place] [ WEAKNESS] [facility] (06502) Menopausal Other primary Chronic Active YUNIOR BROWN Not Available disorders (5 ovarian (59433) sources.) failure Unclassified Other Episodic Active TERELL TIMI [facility] Via (4 sources.) specified [place]ie disorders of Hospital - eye and adnexa [place] (10488) Immunizations Other Episodic Active BASHAR DRAKE , [facility] Via and screening specified [facility] for infectious vaccinations Hospital - disease (5 against [place] sources.) streptococcus (05722) pneumoniae [pneumococcus] Other Other Chronic Active BASHAR DRAKE , Not Avai lable endocrine testicular (50791) disorders (20 hypofunction sources.) Cardiac Palpitations Episodic Active BASHAR DRAKE , [facility] Via dysrhythmias [place] (2 sources.) Hospital [facility] (01856) Pleurisy; Pleural Episodic Active BASHAR DRAKE , [facility] Via pneumothorax; effusion, not [facility] pulmonary elsewhere Hospital - collapse (5 classified [place] sources.) (15006) Other Presence of Chronic Active TERELL TIMI [facility] Via circulatory cardiac and [place] disease (4 vascular Hospital - sources.) implant and [place] graft, (36809) unspecified Other skin Rash and other Episodic Active ESDRAS TRACIE N ot Available disorders (16 nonspecific (39594) sources.) skin eruption Other skin Rash and other Episodic Active ESDRAS TRACIE N ot Available disorders (16 nonspecific (18276) sources.) skin eruption Hemorrhoids (2 Second degree Episodic Active [facility] sources.) hemorrhoids District [facility]1 of Translations: [place] [ INTERNAL County (27461) HEMORRHOIDS WITHOUT MENTION OF COMPLICATION] Residual Sleep apnea, Chronic Active TERELL TIMI [facility] Vi a codes; unspecified Beckie unclassified Hospital - (4 sources.) [place] (60217) Genitourinary Slowing of Episodic Active PERICO TERRELL Hos pital symptoms and urinary stream District [facility] of ill-defined Translations: [place] conditions (10 [ OTHER County (37464) sources.) DIFFICULTIES WITH MICTURITION] Other Special Episodic Active [facility] screening for screening for District [facility]1 of suspected malignant [place] conditions neoplasms of County (05335) (not mental colon disorders or Translations: infectious [ ENCOUNTER disease) (13 FOR SCREENING sources.) FOR MALIGNANT NEOPLASM OF COLON, OTHER ABNORMAL BLOOD CHEMISTRY] 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 [facility] disorders (20 Hospital - sources.) [place] (42262) Residual Tobacco use Episodic Active NETTA JUAN [facility] V ia codes; [facility] unclassified Hospital - (15 sources.) [place] (24732) Diabetes Type 2 Chronic Active [facility] mellitus with diabetes [facility] of complications mellitus with [place] (15 sources.) hyperglycemia [facility] (29549) Translations: [ DIABETES MELLITUS WITH OTHER SPECIFIED MANIFESTATIONS , TYPE II OR UNSPECIFIED TYPE, NOT STATED UNCONTROLLED, TYPE 2 DIABETES MELLITUS WITH DIABETIC C] Diabetes Type 2 Chronic Active LAMAR GAVIN [facility] Via mellitus diabetes , [facility] without mellitus Hospital - complication without [place] (1 source.) complications (36355) External cause Unspecified Episodic Active CARLOS SCANLON [facility] Via codes: accident DO [facility] - orent (2 [place] sources.) (49121) Residual Unspecified Chronic Active [facility] Hospit al codes; sleep apnea District [facility] of unclassified [place] (14 sources.) [facility] (36228) Past or Other Problems Problem Normalized Date Last Normalized Normalized Provider Fa [facility] Classification Problem(s) Recorded Problem Problem Sta tus Duration Unclassified Atrial no information no information [facility] (5 sources.) fibrillation [facility] of and flutter [facility] (01780) External cause Civilian no information no information CARLOS COS , Not Available codes: activity done DO (99749) Unspecified (3 for income or sources.) pay Other Constipation, Episodic Completed ESDRAS TRACIE Not Available gastrointestin unspecified (14568) al disorders (10 sources.) Other Constipation, Episodic Completed ESDRAS TRACIE Not Available gastrointestin unspecified (05522) al disorders (10 sources.) Other Encounter for Episodic Completed MATT PAONI Not Lorenza ilable aftercare (1 change or (11534) source.) removal of surgical wound dressing Other Encounter for Episodic Completed MATT QUIROS Not Lorenza ilable aftercare (1 change or (55563) source.) removal of surgical wound dressing Other Encounter for Episodic Completed LALO HOWAYEK Not Available aftercare (1 removal of (04508) source.) sutures Other Encounter for Episodic Completed LALO HOWAYEK Not Available aftercare (1 removal of (71616) source.) sutures Abdominal pain Epigastric Episodic Completed [place] MENDEZ ot Available (7 sources.) pain (71216) Translations: [ ABDOMINAL PAIN, EPIGASTRIC, ABDOMINAL PAIN, LEFT LOWER QUADRANT] External Fever, Episodic Completed ESDRAS HODGES Not Avai lable Injury - unspecified (53221) Adverse effects of medical drugs (5 sources.) Other male Hydrocele, Episodic Completed YUNIOR BROWN Not Av ailable genital unspecified , (81478) disorders (2 sources.) Fluid and Hypopotassemia Episodic Completed BASVIVIAN DRAKE , No t Available electrolyte MD (43691) disorders (2 sources.) Open wounds of Laceration Episodic Completed LALO HOWAYEK No t Available extremities (2 without (18547) sources.) foreign body of right thumb without damage to nail, initial encounter Translations: [ OPEN WOUND OF FINGERS, COMPLICATED] Inflammatory Orchitis and Episodic Completed YUNIOR BROWN No t Available conditions of epididymitis, , (58226) male genital unspecified organs (2 sources.) Other Personal Episodic Completed BASHAR DRAKE , Not Avai lable gastrointestin history of (67837) al disorders other diseases (2 sources.) of digestive system External cause Unspecified no information no information CARLOS SCANLON , Not Available codes: accident DO (27708) Natural/enviro nment (3 sources.) Procedures Procedure Normalized Procedure Procedure Result Performer Facility Date 05-27-2015 Atrial cardioversion no information [facility] (22159[facility] 08-09-2019 Cataract removal no information no name [facility] (75631) Left heart cardiac no information no name Not Availab le (84501) catheterization 04-29-2015 Other electric no information no name [facility] countershock [facility] (98596) Other electric no information no name Not Available ( 51864) countershock of heart Immunizations Normalized Immunization Date Notes Care Provider Facili ty Immunization no information 08-17-2019 no information PERICO TEJADA [id number] [facility] (41397) no information 04-27-2016 no information YUNIOR NGO [id number] [address] [facility] (65115) Results Test Name Value Interpretation Reference Range Date Time Fa cility (Normalized) (Normalized) (Medline Reference) laboratory on 2020-02-18 Albumin BCG dye 4.8 (no code) 02-18-2020 Hospital [Mass/Vol] 07: [facility] () ALP [Catalytic 103 U/L (no code) 44 - 147 U/L 02-18-2020 Hosp ital activity/Vol] 07: [facility] () ALT [Catalytic 49 U/L (H) 4 - 40 U/L 02-18-2020 Hospit al activity/Vol] 07: [facility] () Amylase 74 U/L (no code) 40 - 140 U/L 02-18-2020 Hospital [Catalytic 07: [facility] of activity/Vol] [facility] (69182) Anion gap 16 mmol/L (H) 3 - 11 mmol/L 02-18-2020 Hospital [Moles/Vol] 07: [facility] () AST [Catalytic 29 U/L (no code) 10 - 34 U/L 02-18-2020 Hospi lucía activity/Vol] 07: [facility] () Basophils (Bld) 0.0 10*3/uL (no code) 0 - 0.3 10*3/uL 02-18-2020 Hospital [#/Vol] 07: [facility] () Basophils/100 0.30 % (no code) 0.5 - 1 % 02-18-2020 Hospital WBC (Bld) 07: [facility] () Bilirubin 1.0 mg/dL (no code) 0.1 - 1.2 mg/dL 02-18-2020 Hospit al [Mass/Vol] 07: [facility] () Calcium 9.3 mg/dL (no code) 8.5 - 10.2 mg/dL 02-18-2020 Hospi lucía [Mass/Vol] 07: [facility] of [facility] () Chloride 104 mmol/L (no code) 95 - 106 mmol/L 02-18-2020 Hospi lucía [Moles/Vol] 07: [facility] of [facility] () Creatinine 1.07 mg/dL (no code) 02-18-2020 Hospital [Mass/Vol] 07: [facility] () Eosinophils 0.2 10*3/uL (no code) 0.05 - 0.5 02-18-2020 Hospita l (Bld) [#/Vol] 10*3/uL 07: [facility] () Eosinophils/100 3.1 % (no code) 1 - 4 % 02-18-2020 Hospit al WBC (Bld) 07: [facility] of [facility] () Erythrocyte 14.2 % (no code) 11.6 - 14.6 % 02-18-2020 Hospit al distribution 07: [facility] of width (RBC) [facility] [Ratio] (06786) GFR/1.73 sq 73 (no code) 90 - 120 02-18-2020 Hospital M.predicted MDRD mL/min/{1.73_m2} mL/min/{1.73_m2} 07: [facility] of (S/P/Bld) [Vol [facility] rate/Area] (48671) Globulin (S) 2.6 g/dL (no code) 2 - 3.5 g/dL 02-18-2020 Hospit al [Mass/Vol] 07: [facility] () Glucose 95 mg/dL (no code) 60 - 125 mg/dL 02-18-2020 Hospita l [Mass/Vol] 07: [facility] () HCO3 (P) 24 (no code) 02-18-2020 Hospital [Moles/Vol] 07: [facility] (31091) Hematocrit (Bld) 50.5 % (no code) 36.1 - 50.3 % 02-18-2020 H ospital [Volume 07: [facility] of fraction] [facility] (32819) Hemoglobin (Bld) 16.7 g/dL (no code) 12.1 - 17.2 g/dL 02-18-2020 Hospital [Mass/Vol] 07: [facility] (55174) Lipase 89 U/L (H) 10 - 73 U/L 02-18-2020 Hospital [Catalytic 07: [facility] activity/Vol] [facility] ([id number]) Lymphocytes 1.59 10*3/uL (no code) 0.9 - 2.9 02-18-2020 Hospita l (Bld) [#/Vol] 10*3/uL 07: [facility] () Lymphocytes/100 20.3 % (no code) 20 - 40 % 02-18-2020 Hospit al WBC (Bld) 07: [facility] ([id number]) MCH (RBC) 29.1 pg (no code) 27 - 31 pg 02-18-2020 Hospital [Entitic mass] 07: [facility] ([id number]) MCHC (RBC) 33.1 g/dL (no code) 32 - 36 g/dL 02-18-2020 Hospital [Mass/Vol] 07: [facility] () MCV (RBC) 88.1 fL (no code) 80 - 100 fL 02-18-2020 Hospital [Entitic vol] 07: [facility] ([id number]) Monocytes (Bld) 0.9 10*3/uL (no code) 0.3 - 0.9 02-18-2020 Hosp ital [#/Vol] 10*3/uL 07: [facility] (73487) Monocytes/100 10.9 % (no code) 2 - 8 % 02-18-2020 Hospital WBC (Bld) 07: [facility] ([id number]) Neutrophils 5.12 10*3/uL (no code) 1.7 - 7 10*3/uL 02-18-2020 H ospital (Bld) [#/Vol] 07: [facility] (97267) Neutrophils/100 65.4 % (no code) 40 - 60 % 02-18-2020 Hospit al WBC (Bld) 07: [facility] (30305) Osmolality Calc 287 (no code) 02-18-2020 Hospital [Osmolality] 07: [facility] (57889) Platelet mean 9.6 fL (no code) 7.2 - 11.7 fL 02-18-2020 Hosp ital volume (Bld) 07: [facility] [Entitic vol] [facility] (59653) Platelets (Bld) 217 10*3/uL (no code) 150 - 450 02-18-2020 Hosp ital [#/Vol] 10*3/uL 07: [facility] (39937) Potassium 4.8 mmol/L (no code) 3.7 - 5.2 mmol/L 02-18-2020 Hosp ital [Moles/Vol] 07: [facility] ([id number]) Protein 7.4 g/dL (no code) 6.4 - 8.3 g/dL 02-18-2020 Hospita l [Mass/Vol] 07: [facility] (81661) RBC (Bld) 5.73 10*6/uL (H) 4.2 - 6.1 02-18-2020 Hospital [#/Vol] 10*6/uL 07: [facility] (38364) Sodium 139 mmol/L (no code) 135 - 145 mmol/L 02-18-2020 Hosp ital [Moles/Vol] 07: [facility] (27391) Urea nitrogen 14 mg/dL (no code) 7 - 20 mg/dL 02-18-2020 Hospi lucía [Mass/Vol] 07: [facility] ([id number]) WBC (Bld) 7.82 10*3/uL (no code) 3.5 - 10.5 02-18-2020 Hospital [#/Vol] 10*3/uL 07: [facility] (74288) laboratory on 2019-12-27 Albumin BCG dye 4.7 (no code) 12-27-2019 Hospital [Mass/Vol] 03: [facility] ([id number]) ALP [Catalytic 97 U/L (no code) 44 - 147 U/L 12-27-2019 Hosp ital activity/Vol] 03: [facility] (59445) ALT [Catalytic 47 U/L (H) 4 - 40 U/L 12-27-2019 Hospit al activity/Vol] 03: [facility] ([id number]) Anion gap 15 mmol/L (H) 3 - 11 mmol/L 12-27-2019 Hospital [Moles/Vol] 03: [facility] ([id number]) AST [Catalytic 28 U/L (no code) 10 - 34 U/L 12-27-2019 Hospi lucía activity/Vol] 03: [facility] (74666) Average glucose 124 mg/dL (H) 12-27-2019 Hospital Estimated from [facility] glycated [facility] hemoglobin mass () conc (Bld) Bilirubin 0.5 mg/dL (no code) 0.1 - 1.2 mg/dL 12-27-2019 Hospit al [Mass/Vol] 03: [facility] (61389) Calcium 9.0 mg/dL (no code) 8.5 - 10.2 mg/dL 12-27-2019 Hospi lucía [Mass/Vol] 03: [facility] (26232) Chloride 105 mmol/L (no code) 95 - 106 mmol/L 12-27-2019 Hospi lucía [Moles/Vol] 03: [facility] (03085) Creatinine 0.99 mg/dL (no code) 12-27-2019 Hospital [Mass/Vol] 03: [facility] (95578) GFR/1.73 sq 80 (no code) 90 - 120 12-27-2019 Hospital M.predicted MDRD mL/min/{1.73_m2} mL/min/{1.73_m2} 03: [facility] (S/P/Bld) [Vol [facility] rate/Area] ([id number]) Globulin (S) 2.4 g/dL (no code) 2 - 3.5 g/dL 12-27-2019 Hospit al [Mass/Vol] 03: [facility] (78410) Glucose 93 mg/dL (no code) 60 - 125 mg/dL 12-27-2019 Hospita l [Mass/Vol] 03: [facility] (69895) HbA1c (Bld) 5.70 % (no code) 0 - 5.7 % 12-27-2019 Hospital [Mass fraction] 03: [facility] () HCO3 (P) 26 (no code) 12-27-2019 Hospital [Moles/Vol] 03: [facility] (34498) Osmolality Calc 293 (no code) 12-27-2019 Hospital [Osmolality] 03: [facility] (46660) Potassium 4.3 mmol/L (no code) 3.7 - 5.2 mmol/L 12-27-2019 Hosp ital [Moles/Vol] 03: [facility] (64842) Protein 7.1 g/dL (no code) 6.4 - 8.3 g/dL 12-27-2019 Hospita l [Mass/Vol] 03: [facility] (73162) Sodium 142 mmol/L (no code) 135 - 145 mmol/L 12-27-2019 Hosp ital [Moles/Vol] 03: [facility] (75153) Urea nitrogen 14 mg/dL (no code) 7 - 20 mg/dL 12-27-2019 Hospi lucía [Mass/Vol] 03: [facility] (43946) laboratory on 2019-09-26 Albumin BCG dye 4.7 (no code) 09-26-2019 Hospital [Mass/Vol] 03:40-050 [facility] () ALP [Catalytic 106 U/L (no code) 44 - 147 U/L 09-26-2019 Hosp ital activity/Vol] 03:40050 [facility] () ALT [Catalytic 55 U/L (H) 4 - 40 U/L 09-26-2019 Hospit al activity/Vol] 03:40050 [facility] () Anion gap 15 mmol/L (H) 3 - 11 mmol/L 09-26-2019 Hospital [Moles/Vol] 03:40050 [facility] () AST [Catalytic 29 U/L (no code) 10 - 34 U/L 09-26-2019 Hospi lucía activity/Vol] 03:40050 [facility] () Average glucose 126 mg/dL (H) 09-26-2019 Hospital Estimated from 03: [facility] glycated [facility] hemoglobin mass () conc (Bld) Basophils (Bld) 0.0 10*3/uL (no code) 0 - 0.3 10*3/uL 09-26-2019 Hospital [#/Vol] 03:40050 [facility] () Basophils/100 0.50 % (no code) 0.5 - 1 % 09-26-2019 Hospital WBC (Bld) 03:40 [facility] () Bilirubin 0.5 mg/dL (no code) 0.1 - 1.2 mg/dL 09-26-2019 Hospit al [Mass/Vol] 03:40050 [facility] () Calcium 9.6 mg/dL (no code) 8.5 - 10.2 mg/dL 09-26-2019 Hospi lucía [Mass/Vol] 03:40050 [facility] () Chloride 106 mmol/L (no code) 95 - 106 mmol/L 09-26-2019 Hospi lucía [Moles/Vol] 03:40050 [facility] () Cholesterol 126 mg/dL (no code) 180 - 200 mg/dL 09-26-2019 Hosp ital [Mass/Vol] 03:40050 [facility] (29543) Cholesterol in 28 mg/dL (L) 09-26-2019 Hospital HDL [Mass/Vol] 03:40050 [facility] (71286) Cholesterol in 72 mg/dL (no code) 0 - 100 mg/dL 09-26-2019 Hos pital LDL [Mass/Vol] 03:40 [facility] (04864) Cholesterol in 26 mg/dL (no code) 09-26-2019 Hospital VLDL [Mass/Vol] 03:40050 [facility] (22118) Cholesterol.tota 4.5 {ratio} (no code) 09-26-2019 Hospital l/Cholesterol in 03:40050 [facility] HDL [Mass ratio] [facility] (26023) Creatinine 0.93 mg/dL (no code) 09-26-2019 Hospital [Mass/Vol] 03:40050 [facility] (76146) Eosinophils 0.1 10*3/uL (no code) 0.05 - 0.5 09-26-2019 Hospita l (Bld) [#/Vol] 10*3/uL 03:40050 [facility] ([id number]) Eosinophils/100 1.8 % (no code) 1 - 4 % 09-26-2019 Hospit al WBC (Bld) 03:40 [facility] () Erythrocyte 14.9 % (H) 11.6 - 14.6 % 09-26-2019 Hospit al distribution 03:40050 [facility] width (RBC) [facility] [Ratio] ([id number]) GFR/1.73 sq 86 (no code) 90 - 120 09-26-2019 Hospital M.predicted MDRD mL/min/{1.73_m2} mL/min/{1.73_m2} 03:40050 [facility] (S/P/Bld) [Vol [facility] rate/Area] ([id number]) Globulin (S) 2.5 g/dL (no code) 2 - 3.5 g/dL 09-26-2019 Hospit al [Mass/Vol] 03:40-0500 [facility] (23045) Glucose 95 mg/dL (no code) 60 - 125 mg/dL 09-26-2019 Hospita l [Mass/Vol] 03:40-0500 [facility] (92542) HbA1c (Bld) 5.70 % (no code) 0 - 5.7 % 09-26-2019 Hospital [Mass fraction] 03:400500 [facility] (59161) HCO3 (P) 24 (no code) 09-26-2019 Hospital [Moles/Vol] 03:400500 [facility] (75411) Hematocrit (Bld) 52.0 % (no code) 36.1 - 50.3 % 09-26-2019 H ospital [Volume 03:40-0500 [facility] fraction] [facility] (18727) Hemoglobin (Bld) 17.2 g/dL (H) 12.1 - 17.2 g/dL 09-26-2019 Hospital [Mass/Vol] 03:40-0500 [facility] (90951) Lymphocytes 1.82 10*3/uL (no code) 0.9 - 2.9 09-26-2019 Hospita l (Bld) [#/Vol] 10*3/uL 03:40-0500 [facility] (86639) Lymphocytes/100 28.0 % (no code) 20 - 40 % 09-26-2019 Hospit al WBC (Bld) 03:400500 [facility] (16398) MCH (RBC) 29.0 pg (no code) 27 - 31 pg 09-26-2019 Hospital [Entitic mass] 03:400500 [facility] (87055) MCHC (RBC) 33.1 g/dL (no code) 32 - 36 g/dL 09-26-2019 Hospital [Mass/Vol] 03:40-0500 [facility] (48463) MCV (RBC) 87.5 fL (no code) 80 - 100 fL 09-26-2019 Hospital [Entitic vol] 03:400500 [facility] (68731) Monocytes (Bld) 0.8 10*3/uL (no code) 0.3 - 0.9 09-26-2019 Hosp ital [#/Vol] 10*3/uL 03:40-0500 [facility] (60441) Monocytes/100 12.2 % (H) 2 - 8 % 09-26-2019 Hospital WBC (Bld) 03:40050 [facility] (29003) Neutrophils 3.74 10*3/uL (no code) 1.7 - 7 10*3/uL 09-26-2019 H ospital (Bld) [#/Vol] 03:40050 [facility] (23816) Neutrophils/100 57.5 % (no code) 40 - 60 % 09-26-2019 Hospit al WBC (Bld) 03:40-050 [facility] (51766) Osmolality Calc 290 (no code) 09-26-2019 Hospital [Osmolality] 03:40050 [facility] (71103) Platelet mean 10.4 fL (H) 7.2 - 11.7 fL 09-26-2019 Hosp ital volume (Bld) 03:40-050 [facility] [Entitic vol] [facility] (98079) Platelets (Bld) 230 10*3/uL (no code) 150 - 450 09-26-2019 Hosp ital [#/Vol] 10*3/uL 03:40-0500 [facility] (38847) Potassium 4.5 mmol/L (no code) 3.7 - 5.2 mmol/L 09-26-2019 Hosp ital [Moles/Vol] 03:40-0500 [facility] (02687) Protein 7.2 g/dL (no code) 6.4 - 8.3 g/dL 09-26-2019 Hospita l [Mass/Vol] 03:40-050 [facility] (41195) RBC (Bld) 5.94 10*6/uL (H) 4.2 - 6.1 09-26-2019 Hospital [#/Vol] 10*6/uL 03:40-0500 [facility] (88620) Sodium 140 mmol/L (no code) 135 - 145 mmol/L 09-26-2019 Hosp ital [Moles/Vol] 03:40-0500 [facility] (67436) Triglyceride 132 mg/dL (no code) 0 - 150 mg/dL 09-26-2019 Hospi lucía [Mass/Vol] 03:40-0500 [facility] (97903) Urea nitrogen 15 mg/dL (no code) 7 - 20 mg/dL 09-26-2019 Hospi lucía [Mass/Vol] 03:40-0500 [facility] (79453) WBC (Bld) 6.50 10*3/uL (no code) 3.5 - 10.5 09-26-2019 Hospital [#/Vol] 10*3/uL 03:40-0500 [facility] (06164) glucose glucometer (bldc) [mass/vol] on 2019-08-16 Glucose 92 mg/dL (no code) 60 - 125 mg/dL 08-16-2019 [facility] [address] [Mass/Vol] 09:22-0500 [facility] ([id number]) laboratory on 2019-06-04 Average glucose 180 (H) 06-04-2019 Hospital Estimated from 16:20-0400 [facility] glycated [facility] hemoglobin mass ([id number]) conc (Bld) HbA1c (Bld) 7.20 % (H) 0 - 5.7 % 06-04-2019 Hospital [Mass fraction] 16:20-0400 [facility] (33158) laboratory on 2019-05-24 Glucose 118 mg/dL (H) 60 - 125 mg/dL 05-24-2019 Hospita l [Mass/Vol] 09:20-0400 [facility] ([id number]) other on 2018-11-06 Testosterone 13.6 (no code) 11-06-2018 [facility] (0000 0) Free [Mass/Vol] 10:21-0500 other on 2018-11-04 Testosterone 599 ng/dL (no code) 11-04-2018 [facility] (0000 0) [Mass/Vol] 07:30-0500 urinalysis on 2018-11-03 Clarity (U) Clear (no code) 11-03-2018 Hospital 10:23-0500 [facility] (79697) Color (U) Yellow (no code) 11-03-2018 Hospital 10: [facility] (86731) Leukocyte Negative (no code) 11-03-2018 Hospital esterase Test 10: [facility] strip Ql (U) [facility] (42476) Protein (U) 1+ (A) 11-03-2018 Hospital [Mass/Vol] 10: [facility] (64347) RBC LM.HPF 0-2/HPF (A) 11-03-2018 Hospital (Urine sed) 10: [facility] [#/Area] [facility] (16071) Specific gravity >=1.030 (A) 11-03-2018 Hospital (U) [Rel 10: [facility] density] [facility] (98472) WBC LM.HPF Negative (no code) 0 - 5 /[HPF] 11-03-2018 Hospital (Urine sed) 10: [facility] [#/Area] [facility] (50068) thyroid on 2018-11-03 TSH Qn 1.91 (no code) 11-03-2018 Hospital 10: [facility] (04644) other on 2018-11-03 Albumin BCG dye 4.5 (no code) 11-03-2018 Hospital [Mass/Vol] 10: [facility] (30522) Bilirubin N/A (A) 11-03-2018 Hospital Confirm Ql (U) 10: [facility] (22355) Bilirubin Ql (U) Negative (no code) 11-03-2018 Hospital 10: [facility] (29538) Cholesterol in 55 mg/dL (H) 11-03-2018 Hospital VLDL [Mass/Vol] 10: [facility] ([id number]) Cholesterol.tota 7.0 {ratio} (H) 11-03-2018 Hospital l/Cholesterol in 10: [facility] HDL [Mass ratio] [facility] (33586) Erythrocyte 14.5 % (no code) 11.6 - 14.6 % 11-03-2018 Hospit al distribution 10: [facility] width (RBC) [facility] [Ratio] ([id number]) FREE 13.6 (no code) 11-03-2018 Hospital TESTOSTERONE(DIR 10: [facility] ECT) [facility] ([id number]) GFR/1.73 sq 76 (no code) 90 - 120 11-03-2018 Hospital M.predicted MDRD mL/min/{1.73_m2} mL/min/{1.73_m2} 10: [facility] (S/P/Bld) [Vol [facility] rate/Area] ([id number]) Globulin (S) 2.5 g/dL (no code) 2 - 3.5 g/dL 11-03-2018 Hospit al [Mass/Vol] 10: [facility] (50357) Glucose Test Negative (no code) 11-03-2018 Hospital strip (U) 10: [facility] [Mass/Vol] [facility] (84763) HCO3 (P) 20 (L) 11-03-2018 Hospital [Moles/Vol] 10: [facility] (84729) Hemoglobin Ql Trace-lysed (A) 11-03-2018 Hospital (U) 10: [facility] (71588) Ketones (U) Negative (no code) 11-03-2018 Hospital [Mass/Vol] 10: [facility] (09113) MCHC (RBC) 33.7 g/dL (no code) 32 - 36 g/dL 11-03-2018 Hospital [Mass/Vol] 10: [facility] (18162) Nitrite Ql (U) Negative (no code) 11-03-2018 Hospital 10: [facility] (88182) Osmolality Calc 287 (no code) 11-03-2018 Hospital [Osmolality] 10: [facility] (99220) pH (U) 5.5 [pH] (no code) 4.6 - 8 [pH] 11-03-2018 Hospital 10: [facility] (70872) Platelet mean 9.3 fL (no code) 7.2 - 11.7 fL 11-03-2018 Hosp ital volume (Bld) 10: [facility] [Entitic vol] [facility] (58619) Testosterone 599 ng/dL (no code) 11-03-2018 Hospital [Mass/Vol] 10: [facility] (11396) Urine Volume Urine Volume (no code) 11-03-2018 Hospital Sufficient 10: [facility] (10mL) [facility] (07240) Urobilinogen Qn 0.2 (A) 11-03-2018 Hospital (U) {Joe'U}/dL 10: [facility] () metabolic panel on 2018-11-03 ALP [Catalytic 88 U/L (no code) 44 - 147 U/L 11-03-2018 Hosp ital activity/Vol] 10: [facility] () ALT [Catalytic 38 U/L (no code) 4 - 40 U/L 11-03-2018 Hospit al activity/Vol] 10: [facility] (00699) Anion gap 17 mmol/L (H) 3 - 11 mmol/L 11-03-2018 Hospital [Moles/Vol] 10: [facility] (14039) AST [Catalytic 27 U/L (no code) 10 - 34 U/L 11-03-2018 Hospi lucía activity/Vol] 10: [facility] (21086) Bilirubin 0.5 mg/dL (no code) 0.1 - 1.2 mg/dL 11-03-2018 Hospit al [Mass/Vol] 10: [facility] (51324) Calcium 9.3 mg/dL (no code) 8.5 - 10.2 mg/dL 11-03-2018 Hospi lucía [Mass/Vol] 10: [facility] (08000) Chloride 106 mmol/L (no code) 95 - 106 mmol/L 11-03-2018 Hospi lucía [Moles/Vol] 10: [facility] (59228) Creatinine 1.04 mg/dL (no code) 11-03-2018 Hospital [Mass/Vol] 10: [facility] (01212) Glucose 103 mg/dL (no code) 60 - 125 mg/dL 11-03-2018 Hospita l [Mass/Vol] 10: [facility] (74584) Potassium 4.3 mmol/L (no code) 3.7 - 5.2 mmol/L 11-03-2018 Hosp ital [Moles/Vol] 10: [facility] (37923) Protein 7.0 g/dL (no code) 6.4 - 8.3 g/dL 11-03-2018 Hospita l [Mass/Vol] 10: [facility] (06861) Sodium 139 mmol/L (no code) 135 - 145 mmol/L 11-03-2018 Hosp ital [Moles/Vol] 10: [facility] (43511) Urea nitrogen 12 mg/dL (no code) 7 - 20 mg/dL 11-03-2018 Hospi lucía [Mass/Vol] 10: [facility] ([id number]) hematology on 2018-11-03 Basophils (Bld) 0.0 10*3/uL (no code) 0 - 0.3 10*3/uL 11-03-2018 Hospital [#/Vol] 10: [facility] (25923) Basophils/100 0.50 % (no code) 0.5 - 1 % 11-03-2018 Hospital WBC (Bld) 10: [facility] (33584) Eosinophils 0.1 10*3/uL (no code) 0.05 - 0.5 11-03-2018 Hospita l (Bld) [#/Vol] 10*3/uL 10: [facility] (89493) Eosinophils/100 2.4 % (no code) 1 - 4 % 11-03-2018 Hospit al WBC (Bld) 10: [facility] (29497) Hematocrit (Bld) 50.7 % (no code) 36.1 - 50.3 % 11-03-2018 H ospital [Volume 10: [facility] fraction] [facility] (19165) Hemoglobin (Bld) 17.1 g/dL (H) 12.1 - 17.2 g/dL 11-03-2018 Hospital [Mass/Vol] 10: [facility] (91609) Lymphocytes 1.98 10*3/uL (no code) 0.9 - 2.9 11-03-2018 Hospita l (Bld) [#/Vol] 10*3/uL 10: [facility] () Lymphocytes/100 35.9 % (no code) 20 - 40 % 11-03-2018 Hospit al WBC (Bld) 10: [facility] () MCH (RBC) 28.5 pg (no code) 27 - 31 pg 11-03-2018 Hospital [Entitic mass] 10: [facility] (76127) MCV (RBC) 84.5 fL (no code) 80 - 100 fL 11-03-2018 Hospital [Entitic vol] 10: [facility] () Monocytes (Bld) 0.6 10*3/uL (no code) 0.3 - 0.9 11-03-2018 Hosp ital [#/Vol] 10*3/uL 10: [facility] () Monocytes/100 10.3 % (no code) 2 - 8 % 11-03-2018 Hospital WBC (Bld) 10: [facility] (71144) Neutrophils 2.80 10*3/uL (no code) 1.7 - 7 10*3/uL 11-03-2018 H ospital (Bld) [#/Vol] 10: [facility] (36354) Neutrophils/100 50.9 % (no code) 40 - 60 % 11-03-2018 Hospit al WBC (Bld) 10: [facility] (16288) Platelets (Bld) 239 10*3/uL (no code) 150 - 450 11-03-2018 Hosp ital [#/Vol] 10*3/uL 10:050 [facility] (47587) RBC (Bld) 6.00 10*6/uL (H) 4.2 - 6.1 11-03-2018 Hospital [#/Vol] 10*6/uL 10:050 [facility] (04032) WBC (Bld) 5.51 10*3/uL (no code) 3.5 - 10.5 11-03-2018 Hospital [#/Vol] 10*3/uL 10: [facility] (97371) cardiac on 2018-11-03 Cholesterol 176 mg/dL (no code) 180 - 200 mg/dL 11-03-2018 Hosp ital [Mass/Vol] 10:0500 [facility] (14076) Cholesterol in 25 mg/dL (L) 11-03-2018 Hospital HDL [Mass/Vol] 10:0500 [facility] (30850) Cholesterol in 96 mg/dL (no code) 0 - 100 mg/dL 11-03-2018 Hos pital LDL [Mass/Vol] 10:0500 [facility] (00318) Triglyceride 275 mg/dL (H) 0 - 150 mg/dL 11-03-2018 Hospi lucía [Mass/Vol] 10:0500 [facility] (64877) thyroid on 2018-07-13 Thyrotropin Qn 1.96 (no code) 07-13-2018 Hospital 16:0500 [facility] (50130) hematology on 2018-07-13 Basophils Auto 0.0 10*3/uL (no code) 0 - 0.3 10*3/uL 07-13-2018 Hospital #/vol (Bld) 16:000500 [facility] (91537) Basophils/100 0.10 % (no code) 0.5 - 1 % 07-13-2018 Hospital WBC Auto (Bld) 16:0500 [facility] (19782) Eosinophils Auto 0.1 10*3/uL (no code) 0.05 - 0.5 07-13-2018 Ho spital #/vol (Bld) 10*3/uL 16:000500 [facility] (65923) Eosinophils/100 1.7 % (no code) 1 - 4 % 07-13-2018 Hospit al WBC Auto (Bld) 16:000500 [facility] (37401) Erythrocyte 14.6 % (no code) 11.6 - 14.6 % 07-13-2018 Hospit al distribution 16:000500 [facility] width Auto Ratio [facility] (RBC) (06845) Hematocrit Auto 50.1 % (no code) 36.1 - 50.3 % 07-13-2018 Ho spital Volume Fraction 16:000500 [facility] (Bld) [facility] (47709) Hemoglobin mass 16.9 g/dL (no code) 12.1 - 17.2 g/dL 07-13-2018 Hospital conc (Bld) 16:000500 [facility] (14459) Lymphocytes Auto 1.99 10*3/uL (no code) 0.9 - 2.9 07-13-2018 Ho spital #/vol (Bld) 10*3/uL 16:000500 [facility] (48138) Lymphocytes/100 28.2 % (no code) 20 - 40 % 07-13-2018 Hospit al WBC Auto (Bld) 16:000500 [facility] (55821) MCH Auto Entitic 28.7 pg (no code) 27 - 31 pg 07-13-2018 Hosp ital mass (RBC) 16:000500 [facility] (19101) MCHC Auto mass 33.7 g/dL (no code) 32 - 36 g/dL 07-13-2018 Hosp ital conc (RBC) 16:000500 [facility] (71737) MCV Auto Entitic 85.1 fL (no code) 80 - 100 fL 07-13-2018 Hos pital volume (RBC) 16:000500 [facility] (38151) Monocytes Auto 0.8 10*3/uL (no code) 0.3 - 0.9 07-13-2018 Hospi lucía #/vol (Bld) 10*3/uL 16:000500 [facility] (67734) Monocytes/100 11.3 % (no code) 2 - 8 % 07-13-2018 Hospital WBC Auto (Bld) 16:00-0500 [facility] ([id number]) Neutrophils Auto 4.14 10*3/uL (no code) 1.7 - 7 10*3/uL 07-13-20 18 Hospital #/vol (Bld) 16:00-0500 [facility] ([id number]) Neutrophils/100 58.7 % (no code) 40 - 60 % 07-13-2018 Hospit al WBC Auto (Bld) 16:000500 [facility] ([id number]) Platelet mean 10.1 fL (H) 7.2 - 11.7 fL 07-13-2018 Hosp ital volume Auto 16:000500 [facility] (d) ([id number]) Platelets Auto 245 10*3/uL (no code) 150 - 450 07-13-2018 Hospi lucía #/vol (Bld) 10*3/uL 16:000500 [facility] ([id number]) RBC Auto #/vol 5.89 10*6/uL (H) 4.2 - 6.1 07-13-2018 Hosp ital (Bld) 10*6/uL 16:00-0500 [facility] ([id number]) WBC Auto #/vol 7.06 10*3/uL (no code) 3.5 - 10.5 07-13-2018 Hos pital (Bld) 10*3/uL 16:000500 [facility] ([id number]) imm/path on 2017-07-10 Surgical Sent to [place] (no code) 07-10-2017 Not Availa ble pathology study Pathology 12:40-0500 ([id number]) other on 2017-06-27 R. rickettsii <1:64 (no code) 06-27-2017 Not Availabl e IgG IF (S) 16:39-0400 ([id number]) [Titer] other on 2017-06-26 R. rickettsii Positive (A) 06-26-2017 Not Availabl e IgG IA Ql (S) 21:28-0400 ([id number]) no panel information on 2017-06-26 NEGATED no information (no code) 06-26-2017 Not Availab le no 13:37-0400 ([id number]) information NEGATED no information (no code) 06-26-2017 Not Availab le no 15:43-0400 ([id number]) information NEGATED no information (no code) 06-26-2017 Not Availab le no 15:43-0400 ([id number]) information NEGATED no information (no code) 06-26-2017 Not Availab le no 15:43-0400 ([id number]) information NEGATED no information (no code) 06-26-2017 Not Availab le no 15:43-0400 ([id number]) information NEGATED no information (no code) 06-26-2017 Not Availab le no 16:06-0400 ([id number]) information NEGATED no information (no code) 06-26-2017 Not Availab le no 16:09-0400 ([id number]) information other on 2017-06-23 B. burgdorferi <0.80 (no code) 06-23-2017 Not Availab le IgM IA Qn (S) 12:00-0400 ([id number]) R. rickettsii 0.22 (no code) 06-23-2017 Not Availabl e IgM (S) [Titer] 23:25-0400 ([id number]) imm/path on 2017-06-23 B. burgdorferi <0.91 (no code) 06-23-2017 Not Availab le IgG+IgM Qn (S) 11:55-0400 ([id number]) vital sign on 2017-06-21 Body mass index Negative (no code) 15 - 25 kg/m2 06-21-2017 No t Available (BMI) [Ratio] 20:33-0400 ([id number]) urinalysis on 2017-06-21 Bilirubin Ql (U) 0.4 (no code) 06-21-2017 Not Avail able 20:33-0400 ([id number]) other on 2017-06-21 Globulin 2.7 g/dL (no code) 2 - 3.5 g/dL 06-21-2017 Not Avail able Calculated mass 20:33-0400 ([id number]) conc (S) SUNDAY MTN 0.22 (no code) 06-21-2017 Not Available SPOTTED FEVER, 20:33-0400 ([id number]) IGM metabolic panel on 2017-06-21 Albumin mass 4.6 g/dL (no code) 3.4 - 5.4 g/dL 06-21-2017 Not Available conc 20:33-0400 ([id number]) ALP enzyme 92 U/L (no code) 44 - 147 U/L 06-21-2017 Not Avai lable act/vol 20:33-0400 ([id number]) ALT enzyme 46 U/L (H) 4 - 40 U/L 06-21-2017 Not Availa ble act/vol 20:33-0400 ([id number]) Anion gap 3 19 mmol/L (H) 3 - 11 mmol/L 06-21-2017 Not Av ailable molar conc 20:33-0400 ([id number]) AST enzyme 31 U/L (no code) 10 - 34 U/L 06-21-2017 Not Avail able act/vol 20:33-0400 ([id number]) Calcium mass 9.8 mg/dL (no code) 8.5 - 10.2 mg/dL 06-21-2017 No t Available conc 20:33-0400 ([id number]) Chloride molar 105 mmol/L (no code) 95 - 106 mmol/L 06-21-2017 Not Available conc 20:33-0400 ([id number]) CO2 molar conc 22 mmol/L (no code) 23 - 29 mmol/L 06-21-2017 No t Available 20:33-0400 ([id number]) Creatinine mass 1.07 mg/dL (no code) 06-21-2017 Not Availa ble conc 20:33-0400 ([id number]) GFR/1.73 sq M 74 (no code) 90 - 120 06-21-2017 Not Avai lable predicted among mL/min/{1.73_m2} mL/min/{1.73_m2} 20:33-0400 (52036) non-blacks MDRD vol rate/area (S/P/Bld) Glucose mass 116 mg/dL (H) 60 - 125 mg/dL 06-21-2017 Not Available conc 20:330400 (31864) Osmolality 293 mosm/kg (no code) 275 - 295 06-21-2017 Not Avail able mosm/kg 20:33-0400 (93602) Potassium molar 4.1 mmol/L (no code) 3.7 - 5.2 mmol/L 06-21-2017 Not Available conc 20:33-0400 (53784) Protein mass 7.3 g/dL (no code) 6.4 - 8.3 g/dL 06-21-2017 Not Available conc 20:33-0400 (27401) Sodium molar 142 mmol/L (no code) 135 - 145 mmol/L 06-21-2017 N ot Available conc 20:330400 ([id number]) Urea nitrogen 9 mg/dL (no code) 7 - 20 mg/dL 06-21-2017 Not A vailable mass conc 20:33-0400 ([id number]) urinalysis on 2017-06-18 Bacteria LM.HPF Negative (no code) 06-18-2017 no informa tion #/area (Urine 00:040400 sed) Bilirubin Ql (U) 0.7 (no code) 06-18-2017 Not Avail able 00:04-0400 ([id number]) Bilirubin Ql (U) Negative (no code) 06-18-2017 no inform ation 00:04-0400 Clarity Nom (U) Clear (no code) 06-18-2017 no informa tion 00:04-0400 Color Nom (U) Yellow (no code) 06-18-2017 no informati on 00:04-0400 Epithelial 0-5/HPF (A) 06-18-2017 no information cells.squamous 00:04-0400 LM.HPF #/area (Urine sed) Hemoglobin Test Negative (no code) 06-18-2017 no informa tion strip Ql (U) 00:04-0400 Leukocyte Negative (no code) 06-18-2017 no information esterase Test 00:040400 strip Ql (U) Nitrite Test Negative (no code) 06-18-2017 no informatio n strip Ql (U) 00:04-0400 pH Test strip 6.0 [pH] (no code) 4.6 - 8 [pH] 06-18-2017 no in formation (U) 00:04-0400 Protein mass Negative (no code) 0 - 20 mg/dL 06-18-2017 no inf ormation conc (U) 00:04-0400 RBC LM.HPF Negative (no code) 0 - 4 /[HPF] 06-18-2017 no infor mation #/area (Urine 00:040400 sed) Specific gravity 1.015 (no code) 06-18-2017 no inform ation Relative Density 00:040400 (U) Urobilinogen 0.2 (no code) 06-18-2017 no informatio n Test strip Qn 00:040 (U) WBC LM.HPF Negative (no code) 0 - 5 /[HPF] 06-18-2017 no infor mation #/area (Urine 00:04040 sed) other on 2017-06-18 Globulin 2.8 g/dL (no code) 2 - 3.5 g/dL 06-18-2017 Not Avail able Calculated mass 00:040 (90500) conc (S) Glucose. Negative (no code) 06-18-2017 no information 00:040400 Icto N/A (A) 06-18-2017 no information 00:040400 IFOBT Negative (no code) 06-18-2017 Not Available 00:040400 (61532) Ketones mass Negative (no code) 06-18-2017 no informatio n conc (U) 00:04-0400 Urine Volume Urine Volume (no code) 06-18-2017 no informati on Sufficient 00:04-0400 (10mL) Urine Yeast No Yeast present (no code) 06-18-2017 no inform ation 00:04-0400 no information Urine Saved if (A) 06-18-2017 no infor mation Culture Needed 00:0400 (48hrs from time of collection) metabolic panel on 2017-06-18 Albumin mass 4.1 g/dL (no code) 3.4 - 5.4 g/dL 06-18-2017 Not Available conc 00:04040 (33770) ALP enzyme 79 U/L (no code) 44 - 147 U/L 06-18-2017 Not Avai lable act/vol 00:040400 (78321) ALT enzyme 43 U/L (no code) 4 - 40 U/L 06-18-2017 Not Availa ble act/vol 00:040400 (04819) Anion gap 3 15 mmol/L (H) 3 - 11 mmol/L 06-18-2017 Not Av ailable molar conc 00: (68135) AST enzyme 24 U/L (no code) 10 - 34 U/L 06-18-2017 Not Avail able act/vol 00: (86978) Calcium mass 9.2 mg/dL (no code) 8.5 - 10.2 mg/dL 06-18-2017 No t Available conc 00: (58992) Chloride molar 106 mmol/L (no code) 95 - 106 mmol/L 06-18-2017 Not Available conc 00: (87772) CO2 molar conc 22 mmol/L (no code) 23 - 29 mmol/L 06-18-2017 No t Available : (90338) Creatinine mass 1.06 mg/dL (no code) 06-18-2017 Not Availa ble conc : (50967) GFR/1.73 sq M 74 (no code) 90 - 120 06-18-2017 Not Avai lable predicted among mL/min/{1.73_m2} mL/min/{1.73_m2} 00: (98531) non-blacks MDRD vol rate/area (S/P/Bld) Glucose mass 102 mg/dL (no code) 60 - 125 mg/dL 06-18-2017 Not Available conc 00: (37817) Osmolality 287 mosm/kg (no code) 275 - 295 06-18-2017 Not Avail able mosm/kg 00: (95299) Potassium molar 3.9 mmol/L (no code) 3.7 - 5.2 mmol/L 06-18-2017 Not Available conc 00: (95789) Protein mass 6.9 g/dL (no code) 6.4 - 8.3 g/dL 06-18-2017 Not Available conc 00: (37115) Sodium molar 139 mmol/L (no code) 135 - 145 mmol/L 06-18-2017 N ot Available conc : (38211) Urea nitrogen 13 mg/dL (no code) 7 - 20 mg/dL 06-18-2017 Not A vailable mass conc 00:0400 (58944) hematology on 2017-06-18 Basophils Auto 0.0 10*3/uL (no code) 0 - 0.3 10*3/uL 06-18-2017 Not Available #/vol (Bld) 00:040400 (82455) Basophils/100 0.30 % (no code) 0.5 - 1 % 06-18-2017 Not Avai lable WBC Auto (Bld) 00: (64410) Eosinophils Auto 0.1 10*3/uL (no code) 0.05 - 0.5 06-18-2017 No t Available #/vol (Bld) 10*3/uL 00:040 (48136) Eosinophils/100 1.4 % (no code) 1 - 4 % 06-18-2017 Not Av ailable WBC Auto (Bld) 00: (60572) Erythrocyte 13.6 % (no code) 11.6 - 14.6 % 06-18-2017 Not Av ailable distribution 00: (85882) width Auto Ratio (RBC) Hematocrit Auto 48.8 % (no code) 36.1 - 50.3 % 06-18-2017 No t Available Volume Fraction 00:0400 (59372) (Bld) Hemoglobin mass 16.5 g/dL (no code) 12.1 - 17.2 g/dL 06-18-2017 Not Available conc (Bld) 00:0400 (31349) Lymphocytes Auto 1.99 10*3/uL (no code) 0.9 - 2.9 06-18-2017 No t Available #/vol (Bld) 10*3/uL 00:040 (34174) Lymphocytes/100 26.0 % (no code) 20 - 40 % 06-18-2017 Not Av ailable WBC Auto (Bld) 00: (13071) MCH Auto Entitic 28.8 pg (no code) 27 - 31 pg 06-18-2017 Not Available mass (RBC) 00: (20778) MCHC Auto mass 33.8 g/dL (no code) 32 - 36 g/dL 06-18-2017 Not Available conc (RBC) 00: (36651) MCV Auto Entitic 85.2 fL (no code) 80 - 100 fL 06-18-2017 Not Available volume (RBC) 00: (56979) Monocytes Auto 0.8 10*3/uL (no code) 0.3 - 0.9 06-18-2017 Not A vailable #/vol (Bld) 10*3/uL 00: (23330) Monocytes/100 9.8 % (no code) 2 - 8 % 06-18-2017 Not Avai lable WBC Auto (Bld) 00: (90630) Neutrophils Auto 4.79 10*3/uL (no code) 1.7 - 7 10*3/uL 06-18-20 17 Not Available #/vol (Bld) 00: (99083) Neutrophils/100 62.5 % (no code) 40 - 60 % 06-18-2017 Not Av ailable WBC Auto (Bld) 00: (13201) Platelet mean 9.4 fL (no code) 7.2 - 11.7 fL 06-18-2017 Not Available volume Auto 00: (05609) Entitic volume (Bld) Platelets Auto 234 10*3/uL (no code) 150 - 450 06-18-2017 Not A vailable #/vol (Bld) 10*3/uL 00: (74196) RBC Auto #/vol 5.73 10*6/uL (H) 4.2 - 6.1 06-18-2017 Not Available (Bld) 10*6/uL 00: (43348) WBC Auto #/vol 7.66 10*3/uL (no code) 3.5 - 10.5 06-18-2017 Not Available (Bld) 10*3/uL 00: (40181) urinalysis on 2017-04-19 Clarity (U) Clear (no code) 04-19-2017 Not Available 15: (85127) Color (U) Yellow (no code) 04-19-2017 Not Available 15: (02742) Epithelial 0-5/HPF (A) 04-19-2017 Not Available cells.squamous 15:47-0400 (00536) LM.HPF (Urine sed) [#/Area] Leukocyte Negative (no code) 04-19-2017 Not Available esterase Test 15:47-0400 (66919) strip Ql (U) Protein (U) Negative (no code) 0 - 20 mg/dL 04-19-2017 Not Lorenza ilable [Mass/Vol] 15:47-0400 (70095) RBC LM.HPF Rare/HPF (A) 04-19-2017 Not Available (Urine sed) 15:47-0400 (74703) [#/Area] Specific gravity 1.020 (no code) 04-19-2017 Not Avail able (U) [Rel 15:47-0400 (40608) density] WBC LM.HPF Negative (no code) 0 - 5 /[HPF] 04-19-2017 Not Avai lable (Urine sed) 15:47-0400 (36320) [#/Area] other on 2017-04-19 Albumin BCG dye 4.7 (no code) 04-19-2017 Not Availa ble [Mass/Vol] 15:47-0400 (52458) Bacteria LM Ql Negative (no code) 04-19-2017 Not Availab le (Urine sed) 15:47-0400 (74069) Bilirubin N/A (A) 04-19-2017 Not Available Confirm Ql (U) 15:47-0400 (70982) Bilirubin Ql (U) Negative (no code) 04-19-2017 Not Avail able 15:47-0400 (19758) Electrocardiogra Complete (no code) 04-19-2017 Not Avail able ms recorded 15:47-0400 (04893) Erythrocyte 14.5 % (no code) 11.6 - 14.6 % 04-19-2017 Not Av ailable distribution 15:47-0400 (15551) width (RBC) [Ratio] GFR/1.73 sq 65 (no code) 90 - 120 04-19-2017 Not Availa ble M.predicted MDRD mL/min/{1.73_m2} mL/min/{1.73_m2} 15:47-0400 (38030) (S/P/Bld) [Vol rate/Area] Globulin (S) 3.4 g/dL (no code) 2 - 3.5 g/dL 04-19-2017 Not Av ailable [Mass/Vol] 15:47-0400 (79242) Glucose Test Negative (no code) 04-19-2017 Not Available strip (U) 15:47-0400 (32614) [Mass/Vol] HCO3 (P) 25 (no code) 04-19-2017 Not Available [Moles/Vol] 15:47-0400 (18283) Hemoglobin Ql Negative (no code) 04-19-2017 Not Availabl e (U) 15:47-0400 (45567) Holter monitor 48 Hour Complete (no code) 04-19-2017 Not Av ailable study 17:16-0400 (85567) Ketones (U) Negative (no code) 04-19-2017 Not Available [Mass/Vol] 15:47-0400 (25141) MCHC (RBC) 33.6 g/dL (no code) 32 - 36 g/dL 04-19-2017 Not Avai lable [Mass/Vol] 15:47-0400 (62189) Nitrite Ql (U) Negative (no code) 04-19-2017 Not Availab le 15:47-0400 (65111) Osmolality Calc 288 (no code) 04-19-2017 Not Availa ble [Osmolality] 15:47-0400 (71296) pH (U) 6.0 [pH] (no code) 4.6 - 8 [pH] 04-19-2017 Not Avail able 15:47-0400 (41383) Platelet mean 9.2 fL (no code) 7.2 - 11.7 fL 04-19-2017 Not Available volume (Bld) 15:47-0400 (54695) [Entitic vol] Urine Volume Urine Volume (no code) 04-19-2017 Not Availabl e Sufficient 15:47-0400 (02185) (10mL) Urobilinogen Qn 0.2 (no code) 04-19-2017 Not Availa ble (U) 15:47-0400 (48537) Yeast.budding Ql No Yeast present (no code) 04-19-2017 Not Available (Urine sed) 15:47-0400 (38341) no information Urine Saved if (A) 04-19-2017 Not Avai lable Culture Needed 15:47-0400 (39769) (48hrs from time of collection) metabolic panel on 2017-04-19 ALP [Catalytic 90 U/L (no code) 44 - 147 U/L 04-19-2017 Not Available activity/Vol] 15:47 (08423) ALT [Catalytic 42 U/L (no code) 4 - 40 U/L 04-19-2017 Not Av ailable activity/Vol] 15:47 (97302) Anion gap 14 mmol/L (no code) 3 - 11 mmol/L 04-19-2017 Not Avai lable [Moles/Vol] 15:47 (27465) AST [Catalytic 24 U/L (no code) 10 - 34 U/L 04-19-2017 Not A vailable activity/Vol] 15: (96911) Bilirubin 0.4 mg/dL (no code) 0.1 - 1.2 mg/dL 04-19-2017 Not Av ailable [Mass/Vol] 15: (85583) Calcium 9.8 mg/dL (no code) 8.5 - 10.2 mg/dL 04-19-2017 Not A vailable [Mass/Vol] 15: (69971) Chloride 105 mmol/L (no code) 95 - 106 mmol/L 04-19-2017 Not A vailable [Moles/Vol] 15: (86412) Creatinine 1.20 mg/dL (no code) 04-19-2017 Not Available [Mass/Vol] 15: (47537) Glucose 79 mg/dL (no code) 60 - 125 mg/dL 04-19-2017 Not Lorenza ilable [Mass/Vol] 15:47 (90086) Potassium 4.1 mmol/L (no code) 3.7 - 5.2 mmol/L 04-19-2017 Not Available [Moles/Vol] 15:47 (55756) Protein 8.1 g/dL (no code) 6.4 - 8.3 g/dL 04-19-2017 Not Lorenza ilable [Mass/Vol] 15:47 (88737) Sodium 140 mmol/L (no code) 135 - 145 mmol/L 04-19-2017 Not Available [Moles/Vol] 15:47-0400 (94039) Urea nitrogen 13 mg/dL (no code) 7 - 20 mg/dL 04-19-2017 Not A vailable [Mass/Vol] 15:47-0400 (11248) hematology on 2017-04-19 Basophils (Bld) 0.0 10*3/uL (no code) 0 - 0.3 10*3/uL 04-19-2017 Not Available [#/Vol] 15:47-0400 (24514) Basophils/100 0.40 % (no code) 0.5 - 1 % 04-19-2017 Not Avai lable WBC (Bld) 15:47-0400 (09465) Eosinophils 0.1 10*3/uL (no code) 0.05 - 0.5 04-19-2017 Not Lorenza ilable (Bld) [#/Vol] 10*3/uL 15:47-0400 (31873) Eosinophils/100 1.4 % (no code) 1 - 4 % 04-19-2017 Not Av ailable WBC (Bld) 15:47-0400 (30654) Hematocrit (Bld) 53.5 % (H) 36.1 - 50.3 % 04-19-2017 N ot Available [Volume 15:47-0400 (31017) fraction] Hemoglobin (Bld) 18.0 g/dL (H) 12.1 - 17.2 g/dL 04-19-2017 Not Available [Mass/Vol] 15:47-0400 (39851) Lymphocytes 2.02 10*3/uL (no code) 0.9 - 2.9 04-19-2017 Not Lorenza ilable (Bld) [#/Vol] 10*3/uL 15:47-0400 (05239) Lymphocytes/100 25.4 % (no code) 20 - 40 % 04-19-2017 Not Av ailable WBC (Bld) 15:47-0400 (61501) MCH (RBC) 28.6 pg (no code) 27 - 31 pg 04-19-2017 Not Availab le [Entitic mass] 15:47-0400 (42396) MCV (RBC) 84.9 fL (no code) 80 - 100 fL 04-19-2017 Not Availa ble [Entitic vol] 15:47-0400 (74974) Monocytes (Bld) 0.8 10*3/uL (no code) 0.3 - 0.9 04-19-2017 Not Available [#/Vol] 10*3/uL 15:47-0400 (09916) Monocytes/100 10.5 % (no code) 2 - 8 % 04-19-2017 Not Avai lable WBC (Bld) 15:47-0400 (39074) Neutrophils 4.95 10*3/uL (no code) 1.7 - 7 10*3/uL 04-19-2017 N ot Available (Bld) [#/Vol] 15:47-0400 (06440) Neutrophils/100 62.3 % (no code) 40 - 60 % 04-19-2017 Not Av ailable WBC (Bld) 15:47-0400 (03561) Platelets (Bld) 249 10*3/uL (no code) 150 - 450 04-19-2017 Not Available [#/Vol] 10*3/uL 15:47-0400 (04428) RBC (Bld) 6.30 10*6/uL (H) 4.2 - 6.1 04-19-2017 Not Avail able [#/Vol] 10*6/uL 15:47-0400 (78402) WBC (Bld) 7.94 10*3/uL (no code) 3.5 - 10.5 04-19-2017 Not Avai lable [#/Vol] 10*3/uL 15:47-0400 (57571) other on 2017-04-10 FREE 15.0 (no code) 04-10-2017 Not Available TESTOSTERONE(DIR 16:30-0400 (02335) ECT) other on 2016-10-19 Albumin BCG dye 4.5 (no code) 10-19-2016 Not Availa ble [Mass/Vol] 15:51-0500 (61972) Cholesterol in 35 mg/dL (no code) 10-19-2016 Not Availab le VLDL [Mass/Vol] 15:51-0500 (77311) Cholesterol.tota 7.3 {ratio} (H) 10-19-2016 Not Avail able l/Cholesterol in 15:51-0500 (73038) HDL [Mass ratio] GFR/1.73 sq 78 (no code) 90 - 120 10-19-2016 Not Availa ble M.predicted MDRD mL/min/{1.73_m2} mL/min/{1.73_m2} 15:510500 (07513) (S/P/Bld) [Vol rate/Area] Globulin (S) 2.8 g/dL (no code) 2 - 3.5 g/dL 10-19-2016 Not Av ailable [Mass/Vol] 15:510500 (85391) HCO3 (P) 21 (L) 10-19-2016 Not Available [Moles/Vol] 15: (69509) Osmolality Calc 288 (no code) 10-19-2016 Not Availa ble [Osmolality] 15: (84419) metabolic panel on 2016-10-19 ALP [Catalytic 78 U/L (no code) 44 - 147 U/L 10-19-2016 Not Available activity/Vol] 15: (51640) ALT [Catalytic 43 U/L (no code) 4 - 40 U/L 10-19-2016 Not Av ailable activity/Vol] 15: (39951) Anion gap 18 mmol/L (H) 3 - 11 mmol/L 10-19-2016 Not Avai lable [Moles/Vol] 15: (39454) AST [Catalytic 24 U/L (no code) 10 - 34 U/L 10-19-2016 Not A vailable activity/Vol] 15:0 (22029) Bilirubin 0.5 mg/dL (no code) 0.1 - 1.2 mg/dL 10-19-2016 Not Av ailable [Mass/Vol] 15:050 (45220) Calcium 9.4 mg/dL (no code) 8.5 - 10.2 mg/dL 10-19-2016 Not A vailable [Mass/Vol] 15: (90670) Chloride 105 mmol/L (no code) 95 - 106 mmol/L 10-19-2016 Not A vailable [Moles/Vol] 15: (29556) Creatinine 1.02 mg/dL (no code) 10-19-2016 Not Available [Mass/Vol] 15: (76889) Glucose 94 mg/dL (no code) 60 - 125 mg/dL 10-19-2016 Not Lorenza ilable [Mass/Vol] 15:51-0500 (72192) Potassium 4.5 mmol/L (no code) 3.7 - 5.2 mmol/L 10-19-2016 Not Available [Moles/Vol] 15:51-0500 (73675) Protein 7.3 g/dL (no code) 6.4 - 8.3 g/dL 10-19-2016 Not Lorenza ilable [Mass/Vol] 15:51-0500 (98667) Sodium 139 mmol/L (no code) 135 - 145 mmol/L 10-19-2016 Not Available [Moles/Vol] 15:51-0500 (63355) Urea nitrogen 16 mg/dL (no code) 7 - 20 mg/dL 10-19-2016 Not A vailable [Mass/Vol] 15:51-0500 (82315) cardiac on 2016-10-19 Cholesterol 189 mg/dL (no code) 180 - 200 mg/dL 10-19-2016 Not Available [Mass/Vol] 15:51-0500 (83330) Cholesterol in 26 mg/dL (L) 10-19-2016 Not Availab le HDL [Mass/Vol] 15:51-0500 (54469) Cholesterol in 128 mg/dL (H) 0 - 100 mg/dL 10-19-2016 Not Available LDL [Mass/Vol] 15:51-0500 (30934) Triglyceride 177 mg/dL (H) 0 - 150 mg/dL 10-19-2016 Not A vailable [Mass/Vol] 15:51-0500 (51248) Vital Signs Vital Sign Value Interpretation Reference Date Time Care Prov ider Facility (Normalized) (Normalized) Range Body mass 734 (no code) 04-10-2017 no name Not Availab le index (BMI) 16:30-0400 (96348) [Ratio] Interventions No Information Plan of Treatment Normalized Care Care Detail Care Activity Date Care Provider F acility Activity Patient Education no information no information [facility] [phone] [facility] ([id number]) Patient referral no information no information PERICO TERRELL [phone] [facility] ([id number]) Goals Patient Goal Desired Goal no information no information Social History Normalized Code Original Code Date Value no information no information 01-08-2016 Rarely Uses no information no information 01-08-2016 Y - TEEN no information no information 04-07-2013 No no information no information 04-07-2013 Denies no information no information 08-20-2015 Yes no information no information 04-28-2016 Smokeless Tobac co Sex Assigned At Sex Assigned At no information M abby Tobacco smoking status Tobacco smoking status no information Never smoked tobacco NHIS NHIS (finding) no information no information 08-17-2019 Never a Smoker Functional Status The data below is from unstructured sources Query Response Date Jalen rded Patient Orientation Person Place Time Situation April 28, 2016 9:35am Comprehension Ability Understands Co ncepts April 28, 2016 8:14am Query Response Date Jalen rded Patient Orientation Person Place Time Situation April 28, 2016 4:08pm Comprehension Ability Understands Co ncepts April 28, 2016 8:14am Query Response Date Jalen rded Patient Orientation Person Place Time Situation July 26, 2015 3:58pm Comprehension Ability Understands Co ncepts July 26, 2015 8:59am Query Response Date Jalen rded Patient Orientation Person Place Time Situation Eyes Open January 10, 2016 12:48pm Comprehension Ability Understands Co ncepts January 09, 2016 4:00am Query Response Date Jalen rded Patient Orientation Person Place Time Situation April 30, 2015 5:17pm Comprehension Ability Understands Co ncepts April 30, 2015 4:00pm Query Response Date Jalen rded Patient Orientation Person Place Time Situation May 28, 2015 10:18am Comprehension Ability Understands Co ncepts May 28, 2015 8:00am Query Response Date Jalen rded Patient Orientation Person Place Time Situation Normal For Age May 02, 2015 6:54pm Comprehension Ability Understands Co ncepts May 01, 2015 9:55am Query Response Date Jalen rded Patient Orientation Person Place Time Situation March 25, 2015 9:44pm Comprehension Ability Understands Co ncepts March 25, 2015 4:05pm No Functional Status information available Mental Status The data below is from unstructured sourcesNo Mental Status Information AvailableNo Mental Status Information AvailableNo Mental Status Information AvailableNo Mental Status Information AvailableNo Mental Status Information AvailableNo Mental Status Information AvailableNo Mental St [facility] Information Available Encounters Encounter Normalized Encounter Encounter Diagnosis Care Provi tyson Organization Date Type 08-16-2019 Admission to day no information (no phone) [facility] (no phone) 08-16-2019 08-09-2019 Admission to day no information (no phone) [facility] (no phone) 08-09-2019 08-17-2019 Emergency department no information (no phone) [facility] (no phone) 08-17-2019 08-16-2019 Emergency department no information no name no organization name - patient visit 08-16-2019 08-20-2015 Emergency department no information no name no organization name - patient visit 08-20-2015 01-08-2016 Evaluation and no information no name no organ ization name - management of 01-10-2016 inpatient 07-24-2015 Evaluation and no information no name no organ ization name - management of 07-26-2015 inpatient 05-26-2015 Evaluation and no information no name no organ ization name - management of 05-28-2015 inpatient 05-01-2015 Evaluation and no information no name no organ ization name - management of 05-02-2015 inpatient 04-30-2015 Evaluation and no information no name no organ ization name - management of 04-30-2015 inpatient 07-13-2018 Patient encounter no information no name no or ganization name - 07-14-2018 07-10-2017 Patient encounter no information no name no or ganization name - 07-10-2017 07-05-2017 Patient encounter no information no name no or ganization name - 07-06-2017 06-21-2017 Patient encounter no information no name no or ganization name - 06-22-2017 06-17-2017 Patient encounter no information no name no or ganization name - 06-18-2017 06-17-2017 Patient encounter no information no name no or ganization name 02-17-2020 Patient encounter no information PERICO TERRELL (no [facility] of [facility] (no 02-17-2020 phone) 02-12-2020 Patient encounter no information PERICO TERRELL (no [facility] of [facility] (no 02-12-2020 phone) 01-26-2020 Patient encounter no information YUNIOR BROWN (no [facility] of [facility] (no 01-26-2020 phone) 12-27-2019 Patient encounter no information PERICO TERRELL (no [facility] of [facility] (no 12-27-2019 phone) 12-27-2019 Patient encounter no information PERICO TERRELL (no [facility] of [facility] (no 12-27-2019 phone) 12-24-2019 Patient encounter no information PERICO TERRELL (no [facility] of [facility] (no 12-24-2019 phone) 09-26-2019 Patient encounter no information no name no or ganization name - procedure 09-26-2019 09-26-2019 Patient encounter no information no name no or ganization name - procedure 09-26-2019 09-19-2019 Patient encounter no information no name no or ganization name - procedure 09-19-2019 08-16-2019 Patient encounter no information no name no or ganization name procedure 08-16-2019 Patient encounter no information no name no or ganization name - procedure 08-16-2019 08-09-2019 Patient encounter no information no name no or ganization name - procedure 08-09-2019 08-07-2019 Patient encounter no information (no phone) [facility] (no phone) 08-07-2019 08-07-2019 Patient encounter no information no name no or ganization name - procedure 08-07-2019 07-17-2019 Patient encounter no information no name no or ganization name - procedure 07-17-2019 06-24-2019 Patient encounter no information no name no or ganization name - procedure 06-25-2019 06-13-2019 Patient encounter no information no name no or ganization name - procedure 06-14-2019 06-04-2019 Patient encounter no information no name no or ganization name - procedure 06-05-2019 06-04-2019 Patient encounter no information no name no or ganization name - procedure 06-05-2019 05-24-2019 Patient encounter no information no name no or ganization name - procedure 05-25-2019 05-17-2019 Patient encounter no information no name no or ganization name - procedure 05-17-2019 05-16-2019 Patient encounter no information no name no or ganization name - procedure 05-17-2019 03-25-2019 Patient encounter no information no name no or ganization name - procedure 03-26-2019 02-13-2019 Patient encounter no information no name no or ganization name - procedure 02-14-2019 02-12-2019 Patient encounter no information no name no or ganization name - procedure 02-13-2019 11-08-2018 Patient encounter no information no name no or ganization name - procedure 11-09-2018 11-03-2018 Patient encounter no information no name no or ganization name - procedure 11-04-2018 11-01-2018 Patient encounter no information no name no or ganization name - procedure 11-02-2018 01-05-2018 Patient encounter no information no name no or ganization name - procedure 01-06-2018 01-04-2018 Patient encounter no information no name no or ganization name - procedure 01-05-2018 12-20-2017 Patient encounter no information no name no or ganization name - procedure 12-21-2017 07-14-2017 Patient encounter no information no name no or ganization name - procedure 07-15-2017 06-21-2017 Patient encounter no information no name no or ganization name - procedure 06-22-2017 06-19-2017 Patient encounter no information no name no or ganization name - procedure 06-20-2017 05-05-2017 Patient encounter no information no name no or ganization name - procedure 05-06-2017 04-19-2017 Patient encounter no information no name no or ganization name - procedure 04-19-2017 04-10-2017 Patient encounter no information no name no or ganization name - procedure 04-11-2017 04-10-2017 Patient encounter no information no name no or ganization name - procedure 04-11-2017 02-13-2017 Patient encounter no information no name no or ganization name - procedure 02-13-2017 02-05-2017 Patient encounter no information no name no or ganization name - procedure 02-05-2017 02-02-2017 Patient encounter no information no name no or ganization name - procedure 02-02-2017 10-19-2016 Patient encounter no information no name no or ganization name - procedure 10-20-2016 06-03-2016 Patient encounter no information no name no or ganization name procedure 06-03-2016 Patient encounter no information no name no or ganization name procedure 04-27-2016 Patient encounter no information no name no or ganization name - procedure 04-28-2016 04-27-2016 Patient encounter no information no name no or ganization name - procedure 04-28-2016 08-21-2015 Patient encounter no information no name no or ganization name procedure 08-21-2015 Patient encounter no information no name no or ganization name procedure 03-27-2015 Patient encounter no information no name no or ganization name - procedure 03-27-2015 03-27-2015 Patient encounter no information no name no or ganization name - procedure 03-27-2015 10-08-2014 Patient encounter no information no name no or ganization name procedure 10-08-2014 Patient encounter no information no name no or ganization name procedure 11-02-2012 Patient encounter no information no name no or ganization name procedure no information Encounter for other no name no organiz ation name preprocedural examination Medical Equipment The data below is from unstructured sourcesNo Medical Equipment Information availableNo Medical Equipment Information availableNo Medical Equipment Information availableNo Medical Equipment Information a vailableNo Medical Equipment Information availableNo Medical Equipment Informati on availableNo Medical Equipment Information available Payers Normalized Payer Value [facility] no information Evaluation note Note Type Note Facility Evaluation No Assessments Information Available A scension note [facility] ([id number]) Advance Directives Directive Response Recor ded Date/Time Advance Directives No 6:06pm Health Care Power of Director Transportation No 04/27/16 6:06pm Organ Donor Yes 04/27/16 6:06pm Resuscitation Status Full Code 04/27/16 6:06pm Directive Response Recor ded Date/Time Advance Directives No 6:42pm Health Care Power of Director Transportation No 07/24/15 6:42pm Organ Donor Yes 07/24/15 6:42pm Resuscitation Status Full Code 07/24/15 6:42pm Directive Response Recor ded Date/Time Advance Directives No 1:14pm Health Care Power of Director Transportation No 01/08/16 1:14pm Organ Donor Yes 01/08/16 1:14pm Resuscitation Status Full Code 01/08/16 1:14pm Directive Response Recor ded Date/Time Advance Directives No 8:05pm Health Care Power of Director Transportation No 08/20/15 8:05pm Organ Donor Yes 08/20/15 8:05pm Resuscitation Status Full Code 08/20/15 8:05pm Directive Response Recor ded Date/Time Advance Directives No 10:28am Health Care Power of Director Transportation No 04/29/15 10:28am Organ Donor Yes 04/29/15 10:28am Resuscitation Status Full Code 04/29/15 10:28am Directive Response Recor ded Date/Time Advance Directives No 2:31pm Health Care Power of Director Transportation No 03/27/15 2:31pm Organ Donor Yes 03/27/15 2:31pm Directive Response Recor ded Date/Time Advance Directives No 2:31pm Health Care Power of Director Transportation No 03/27/15 2:31pm Organ Donor Yes 03/27/15 2:31pm Resuscitation Status Full Code 03/27/15 2:31pm Directive Response Recor ded Date Advance Directives N 11/14 9:17pm Health Care Power of Director Transportation N 04/06/13 9:17pm Organ Donor Y 04/06/13 9 :17pm Directive Response Recor ded Date/Time Advance Directives No 10:01pm Health Care Power of Director Transportation No 05/26/15 10:01pm Organ Donor Yes 05/26/15 10:01pm Resuscitation Status Full Code 05/26/15 10:01pm Directive Response Recor ded Date/Time Advance Directives No 12:49pm Health Care Power of Director Transportation No 05/01/15 12:49pm Organ Donor Yes 05/01/15 12:49pm Resuscitation Status Full Code 05/01/15 12:49pm Directive Response Recor ded Date/Time Advance Directives No 2:57am Health Care Power of Director Transportation No 03/25/15 2:57am Organ Donor Yes 03/25/15 2:57am Resuscitation Status Full Code 03/25/15 2:57am Directive Response Recor ded Date/Time Advance Directives No 11:39am Health Care Power of Director Transportation No 03/10/15 11:39am Organ Donor Yes 03/10/15 11:39am Resuscitation Status Full Code 03/10/15 11:39am Directive Response Recor ded Date Advance Directives N 5:31pm Health Care Power of Director Transportation N 02/18/13 4:45pm Organ Donor Y 02/18/13 5 :31pm Directive Response Recor ded Date Advance Directives N 5:19am Health Care Power of Director Transportation N 02/23/13 5:19am Organ Donor Y 02/23/13 5 :19am Advance Directive Response Recorded Date/Time Advance Directives No 2018 2:27pm Health Care Power of Director Transportation No August 07, 2019 2:27pm Organ Donor Yes August 07, 2019 2:27pm Resuscitation Status Full Code August 07, 2019 2:27pm Advance Directive Response Recorded Date/Time Advance Directives No 2018 8:23am Health Care Power of Director Transportation No August 09, 2019 8:23am Organ Donor Yes August 09, 2019 8:23am Resuscitation Status Full Code August 09, 2019 8:23am Advance Directive Response Recorded Date/Time Advance Directives No 2018 8:00am Health Care Power of Director Transportation No August 16, 2019 8:00am Organ Donor Yes August 16, 2019 8:00am Resuscitation Status Full Code August 16, 2019 8:00am Advance Directive Response Recorded Date/Time Advance Directives No 2018 12:08am Health Care Power of Director Transportation No August 17, 2019 12:08am Organ Donor Yes August 17, 2019 12:08am Resuscitation Status Full Code August 17, 2019 12:08am Discharge Instructions No hospital discharge instructions.No hospital discharge instructions.No hospital discharge instructions. Patient Instructions Physician Instructions Patient Instructions: F/u with Dr Steen this week Care Plan Patient Instructions:: F/u with Dr Steen this week No hospital discharge instructions.No hospital discharge instructions.No hospital discharge instructions.No hospital discharge instructions.No hospital discharge instructions. Patient Instructions Physician Instructions New, Converted or Re-Newed RX: Other (patient has no new medications. He is instructed to resume all usual medications that he had on admission with the exception of discontinuation of Celexa and flecainide.) Patient Instructions: reuse resume usual medications. Stop flecainide and Celexa. Call Dr. Llamas on Monday for any follow-up appointments Keep the appointment with Dr. Marley in the [facility] on Friday, May 08, 2015 Goal: maintain normal sinus rhythm and be asymptomatic Return to The Hospital For: rapid tachycardia palpitations and tachycardia not controlled with medication Discharge Diet: Cardiac Diet Drink 6-8 Glasses/Fluids/Day: Yes Activity as Tolerated: Yes Care Plan Patient Instructions:: reuse resume usual medications. Stop flecainide and Celexa.Call Dr. Llamas on Monday for any follow-up appointmentsKeep the appointment with Dr. Marley in the [facility] on 2014 Goal:: maintain normal sinus rhythm and be asymptomatic No hospital discharge instructions. Patient Instructions Physician Instructions New, Converted or Re-Newed RX: Other (patient has no new medications. He is instructed to resume all usual medications that he had on admission with the exception of discontinuation of Celexa and flecainide.) Patient Instructions: reuse resume usual medications. Stop flecainide and Celexa. Call Dr. Llamas on Monday for any follow-up appointments Keep the appointment with Dr. Marley in the [facility] on Friday, May 08, 2015 Goal: maintain normal sinus rhythm and be asymptomatic Return to The Hospital For: rapid tachycardia palpitations and tachycardia not controlled with medication Discharge Diet: Cardiac Diet Drink 6-8 Glasses/Fluids/Day: Yes Activity as Tolerated: Yes Care Plan Patient Instructions:: reuse resume usual medications. Stop flecainide and Celexa.Call Dr. Llamas on Monday for any follow-up appointmentsKeep the appointment with Dr. Marley in the [facility] on 2014 Goal:: maintain normal sinus rhythm and be asymptomatic No hospital discharge instructions. Chief Complaint and Reason for Visit Chief Complaint Eye Problems Reason for Visit [id number] Additional Source Comments This clinical document has been generated using [employer] software that has been certified by the Office of the National Coordinator for Health Information Technology (ONC 15.99.04.3023.[id number]) and the National Committee for Interventional Radiologist (NCQA, as an eMeasure certified technology). FOR RECORDS PERTAINING TO PATIENTS WHO ARE OR HAVE BEEN ENROLLED IN A CHEMICAL D EPENDENCY/SUBSTANCE ABUSE PROGRAM, SOME INFORMATION MAY BE OMITTED. This clinica l summary was aggregated from multiple sources. Caution should be exercised in using it in the provision of clinical care. This summary normalizes information from multiple sources, and as a consequence, information in this document may ma terially change the coding, format and clinical context of patient data. In jena tion, data may be omitted in some cases. CLINICAL DECISIONS SHOULD BE BASED ON T HE PRIMARY CLINICAL RECORDS. [employer] [facility]. provides no warranty or guara ntee of the accuracy or completeness of information in this document.The followi information is based on time limited clinical information
--- OUTSIDE RECORDS SUMMARY | 2020-02-27 09:18 | XMS REPORT | Continuity of Care Document ---
Demographics Preferred Language Unknown Marital Status Unknown Mu-Ism Affiliation Unknown Race Unknown Ethnic Group Unknown Author Organization Unknown Address Unknown Phone Unavailable Allergies Active Description Code Type Severity Reaction Onset Reported/Identified Relationship to Patient Clinical Status Yes NO KNOWN DRUG ALLERGIES UNKNOWN NO KNOWN DRUG ALLERG Yes NO KNOWN DRUG ALLERGIES UNKNOWN UNKNOWN Yes No Known Drug Allergies [id number] Drug Allergy Unknown N/A 08/07/2019 Medications Medication [...] MD Ot 530. 81 ESOPHAGEAL REFLUX 02/19/2013 NETTA JUAN MD Ot V12. 79 PERSONAL HISTORY OTH SPEC DIGESTIVE SYST 02/25/2013 BETZAIDA ARIAS FACC, GABE FACP CCDS Ot 278.00 OBESITY, NOS 02/25/2013 BETZAIDA ARIAS FACC, GABE FACP CCDS Ot 427.31 ATRIAL FIBRILLATION 02/25/2013 BETZAIDA ARIAS FACC, ALI FACP CCDS Ot 530.81 ESOPHAGEAL REFLUX 02/25/2013 BETZAIDA ARIAS FACC, GABE FACP CCDS Ot 786.50 CHEST PAIN NOS [...] NOS 03/10/2015 VITOR HUA MD Ot V58.69 OTH MED,LT,CURRENT USE 03/25/2015 Ot 603.9 03/25/2015 Ot 604.90 03/25/2015 COSENS DO, CARLOS L Ot 927. 3 03/25/2015 CAPO DO, CARLOS L Ot E000 .0 03/25/2015 CAPO CARPENTER, CARLOS L Ot E928 .9 03/25/2015 NETTA JUAN [...] V58. 61 ANTICOAGULANTS,LT,CURRENT USE 03/27/2015 NETTA JUAN MD, Ot V58. 69 OTH MED,LT,CURRENT USE 04/02/2015 NETTA JUAN MD Ot 327. 23 OBSTRUCTIVE SLEEP APNEA (ADULT) (PEDIATR 04/02/2015 NETTA JUAN MD Ot 427. 31 ATRIAL FIBRILLATION 04/30/2015 NETTA JUAN MD Ot 242. 90 THYROTOX NOS NO CRISIS 04/30/2015 NETTA JUAN MD Ot 257. 2 TESTICULAR [...] MD Ot I49. 5 07/26/2015 NETTA JUAN MD, Ot J44. 9 07/26/2015 NETTA JUAN MD, Ot K21. 9 07/26/2015 NETTA JUAN MD Ot R74. 8 08/20/2015 ANUM CÁRDENAS DO Ot I51.7 CARDIOMEGALY 08/20/2015 ANUM CÁRDENAS DO Ot J18.9 PNEUMONIA, UNSPECIFIED ORGANISM 08/20/2015 ANUM CÁRDENAS DO Ot R07.89 OTHER CHEST PAIN 08/20/2015 ANUM CÁRDENAS DO Ot R50.9 FEVER, UNSPECIFIED 08/21/2015 Ot 603.9 08/21/2015 Ot 604.90 08/21/2015 CARLOS SCANLON DO Ot 927. 3 08/21/2015 CARLOS SCANLON DO Ot E000 .0 08/21/2015 CARLOS SCANLON DO Ot E928 .9 09/08/2015 NETTA JUAN MD Ot I48. 91 09/08/2015 NETTA JUAN MD, Ot J90 09/08/2015 NETTA JUAN MD Ot R06. 00 01/08/2016 NETTA JUAN MD Ot I48. 91 UNSPECIFIED ATRIAL FIBRILLATION 01/08/2016 NETTA JUAN MD Ot J90 PLEURAL EFFUSION, NOT ELSEWHERE CLASSIFI 01/08/2016 NETTA JUAN MD Ot R06. 00 DYSPNEA, UNSPECIFIED 01/08/2016 Ot 603.9 HYDR OCELE NOS 01/08/2016 Ot 604.90 ORCHITIS/EPIDIDYMIT NOS 01/08/2016 CARLOS SCANLON DO Ot 927. 3 CRUSHING INJURY FINGER 01/08/2016 [...] 04/28/2016 NETTA JUAN MD Ot Z79.899 OTHER [facility] (CURRENT) DRUG THERAPY 05/04/2016 Ot 603.9 HYDR OCELE NOS 05/04/2016 Ot 604.90 ORCHITIS/EPIDIDYMIT NOS 05/04/2016 COSENS DO, CARLOS L Ot 927. 3 CRUSHING INJURY FINGER 05/04/2016 COSENS DO, CARLOS L Ot E000 .0 CIVILIAN ACTIVITY DONE FOR INCOME OR PAY 05/04/2016 CAPO DO, CARLOS L Ot E928 .9 ACCIDENT [...] 05/13/2016 NETTA JUAN MD Ot Z79.899 OTHER [facility] (CURRENT) DRUG THERAPY 06/03/2016 Ot 603.9 HYDR OCELE NOS 06/03/2016 Ot 604.90 ORCHITIS/EPIDIDYMIT NOS 06/03/2016 CAPO DO, CARLOS L Ot 927. 3 CRUSHING INJURY FINGER 06/03/2016 COSENS DO, CARLOS L Ot E000 .0 CIVILIAN ACTIVITY DONE FOR INCOME OR PAY 06/03/2016 CAPO CARPENTER, CARLOS L Ot E928 .9 ACCIDENT NOS 06/03/2016 NETTA JUAN MD Ot I48. 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 3 CRUSHING INJURY FINGER 05/01/2017 TERESAENS CARPENTER CARLOS L Ot E000 .0 CIVILIAN ACTIVITY DONE FOR INCOME OR PAY 05/01/2017 CAPO CARPENTER CARLOS L Ot E928 .9 ACCIDENT NOS 05/01/2017 NETTA JUAN MD Ot I48. 91 UNSPECIFIED ATRIAL FIBRILLATION 05/01/2017 NETTA JUAN MD Ot J90 PLEURAL EFFUSION, NOT ELSEWHERE CLASSIFI 05/01/2017 NETTA JUAN MD Ot R06. 00 DYSPNEA, UNSPECIFIED 05/01/2017 NETTA JUAN MD Ot I48. 0 PAROXYSMAL ATRIAL FIBRILLATION 06/18/2017 Chuckie Hillary W 401.0 MALIGNANT ESSENTIAL HYPERTENSION 06/18/2017 Flaco Noguerassica W 427.31 ATRIAL FIBRILLATION 06/18/2017 Flaco Nog[place] A 564.00 CONSTIPATION, UNSPECIFIED 06/18/2017 Chuckie Hillary W 780.60 06/18/2017 Chuckie Hillary W 782.1 RASH AND OTHER NONSPECIFIC SKIN ERUPTION 06/18/2017 Chuckie Hillary W 789.06 06/18/2017 Chuckie Hillary W I10 ESSENTIAL (PRIMARY) HYPERTENSION 06/18/2017 Chuckie Hillary W I48.91 UNSPECIFIED ATRIAL FIBRILLATION 06/18/2017 Flaco Nog[place] A K59.00 CONSTIPATION, UNSPECIFIED 06/18/2017 Chuckie Hillary W R10.13 EPIGASTRIC PAIN 06/18/2017 Chuckie Hillary W R21 RASH AND OTHER NONSPECIFIC SKIN [...] A ND OTHER NONSPECIFIC SKIN ERUPTION 06/21/2017 Terrell Cui W 780.61 FEVER PRESENTING WITH CONDITIONS CLASSIFIED ELSEWHERE 06/21/2017 BrownTerrell W R50.81 FEVER PRESENTING WITH CONDITIONS CLASSIFIED ELSEWHERE 06/21/2017 BrownTerrell W 780.61 FEVER PRESENTING WITH CONDITIONS CLASSIFIED ELSEWHERE 06/21/2017 BrownTerrell W R50.81 FEVER PRESENTING WITH CONDITIONS CLASSIFIED ELSEWHERE 06/21/2017 W 780.61 FEV ER PRESENTING WITH CONDITIONS CLASSIFIED ELSEWHERE 06/21/2017 W 782.1 RASH AND OTHER NONSPECIFIC SKIN ERUPTION 06/21/2017 W R21 RASH A ND OTHER NONSPECIFIC SKIN ERUPTION 06/21/2017 W R50.81 FEV ER PRESENTING WITH CONDITIONS CLASSIFIED ELSEWHERE 06/21/2017 Terrell Cui W 780.61 FEVER PRESENTING WITH CONDITIONS CLASSIFIED ELSEWHERE 06/21/2017 BrownTerrell W R50.81 FEVER PRESENTING WITH CONDITIONS CLASSIFIED ELSEWHERE 07/10/2017 Kelsi Shah 455.0 INTERNAL HEMORRHOIDS WITHOUT MENTION OF COMPLICATION 07/10/2017 Kelsi Shah 530.81 07/10/2017 Kelsi Shah 535.10 07/10/2017 Kelsi Shah 552.3 DIAPHRAGMATIC HERNIA WITH OBSTRUCTION 07/10/2017 Kelsi Shah 562.12 DIVERTICULOSIS OF COLON WITH HEMORRHAGE 07/10/2017 Kelsi Shah 787.20 07/10/2017 Kelsi Shah K21.0 GASTRO- ESOPHAGEAL REFLUX DISEASE WITH ESOPHAGITIS 07/10/2017 Kelsi Shah K29.30 CHRONIC SUPERFICIAL GASTRITIS WITHOUT BLEEDING 07/10/2017 Kelsi Shah K44.9 DIAPHRAGMATIC HERNIA WITHOUT OBSTRUCTION OR GANGRENE 07/10/2017 Kelsi Shah 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 BLEEDING 07/10/2017 Kelsi Shah K64.1 SECOND DEGREE HEMORRHOIDS 07/10/2017 Kelsi Shah R13.10 DYSPHAGIA, UNSPECIFIED 07/10/2017 Kelsi Shah V76.51 SCREENING FOR MALIGNANT NEOPLASMS OF COLON 07/10/2017 Kelsi Shah Z12.11 ENCOUNTER FOR SCREENING FOR MALIGNANT NEOPLASM [...] ESSENT IAL (PRIMARY) HYPERTENSION 12/20/2017 W I48.2 VETERINARIAN EPIDEMIOLOGIST WILLIE ATRIAL FIBRILLATION 12/20/2017 W J34.0 ABSC [...] Jaimie W I10 ESSENTIAL (PRIMARY) HYPERTENSION 01/05/2018 Leia, Jaimie W I48.0 PAROXYSMAL ATRIAL FIBRILLATION 01/05/2018 Leia, Jaimie W 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 01/05/2018 Leia, Jaimie W 272.8 OTHER DISORDERS OF LIPOID METABOLISM 01/05/2018 Leia, Jaimie W 401.9 UNSPECIFIED ESSENTIAL HYPERTENSION 01/05/2018 Leia, Jaimie W 427.31 ATRIAL FIBRILLATION 01/05/2018 Leia, Jaimie W E29.1 TESTICULAR HYPOFUNCTION 01/05/2018 Leia, Jaimie W E78.5 HYPERLIPIDEMIA, UNSPECIFIED 01/05/2018 Leia, Jaimie W I10 ESSENTIAL (PRIMARY) HYPERTENSION 01/05/2018 Leia, Jaimie W I48.0 PAROXYSMAL ATRIAL FIBRILLATION 01/05/2018 W [...] OBE SITY, UNSPECIFIED 11/01/2018 W 305.1 TOBA [employer]RI[employer] USE DISORDER 11/01/2018 W 311 DEPRES SIVE [...] W R53.1 WEAKNESS 11/01/2018 W Z72.0 TOBA [employer] USE 11/08/2018 W 272.1 PURE HYPERGLYCERIDEMIA 11/08/2018 W 401.9 UNSP ECIFIED ESSENTIAL HYPERTENSION 11/08/2018 W 427.31 ATR IAL FIBRILLATION 11/08/2018 W E78.1 PURE HYPERGLYCERIDEMIA 11/08/2018 W I10 ESSENT IAL (PRIMARY) HYPERTENSION 11/08/2018 W I48.2 VETERINARIAN EPIDEMIOLOGIST WILLIE ATRIAL FIBRILLATION 02/12/2019 W 257.2 OTHE R TESTICULAR HYPOFUNCTION 02/12/2019 W 272.4 OTHE R AND UNSPECIFIED HYPERLIPIDEMIA 02/12/2019 W 278.00 OBE SITY, UNSPECIFIED 02/12/2019 W 305.1 TOBA [employer]RI[employer] USE DISORDER 02/12/2019 W 311 DEPRES SIVE [...] Ot E928 .9 ACCIDENT NOS 03/13/2019 DRAKE ARIAS, NETTA Marshall Ot I48. 91 [...] G47.33 OBSTRUCTIVE SLEEP APNEA (ADULT) (PEDIATRIC) 05/16/2019 Liea, Jaimie W I10 ESSENTIAL (PRIMARY) HYPERTENSION 05/16/2019 [...] Dupree 790.6 OTHER ABNORMAL BLOOD CHEMISTRY 05/24/2019 Jaimie Dupree R73.01 IMPAIRED FASTING GLUCOSE 05/24/2019 Jaimie Dupree R73.9 HYPERGLYCEMIA, UNSPECIFIED 06/24/2019 Jaimie Dupree 250.80 DIABETES MELLITUS WITH OTHER SPECIFIED MANIFESTATIONS, TYPE II OR UNSPECIFIED TYPE, NOT STATED UNCONTROLLED 06/24/2019 Jaimie Dupree W E11.65 TYPE 2 DIABETES MELLITUS WITH HYPERGLYCEMIA [...] I10 ESSENTIAL (PRIMARY) HYPERTENSION 08/09/2019 LAMAR GAVIN MD Ot I48.91 UNSPECIFIED ATRIAL FIBRILLATION 08/09/2019 LAMAR GAVIN MD, Ot Z79.84 [facility] (CURRENT) USE OF ORAL HYPOGLYC 08/09/2019 LAMAR GAVIN MD, Ot Z79.899 OTHER [facility] (CURRENT) DRUG THERAPY 08/09/2019 LAMAR GAVIN MD, Ot Z80 .3 FAMILY HISTORY OF MALIGNANT NEOPLASM OF 08/09/2019 LAMAR GAVIN MD, Ot Z83 .3 FAMILY HISTORY OF DIABETES MELLITUS 08/09/2019 LAMAR GAVIN MD, Ot Z01.818 ENCOUNTER FOR [...] OBSTRUCTIVE SLEEP APNEA (ADULT) (PEDIATR 08/13/2019 LAMAR GAIVN MD Ot H25.11 AGE-RELATED NUCLEAR CATARACT, RIGHT EYE 08/13/2019 LAMAR GAVIN MD Ot I10 ESSENTIAL (PRIMARY) HYPERTENSION 08/13/2019 LAMAR GAVIN MD Ot I48.91 UNSPECIFIED ATRIAL FIBRILLATION 08/13/2019 LAMAR GAVIN MD Ot Z79.84 [employer] (CURRENT) USE OF ORAL HYPOGLYC 08/13/2019 LAMAR GAVIN MD Ot Z79.899 OTHER [facility] (CURRENT) DRUG THERAPY 08/13/2019 LAMAR GAVIN MD [...] FIBRILLATION 08/16/2019 LAMAR GAVIN MD Ot Z79.84 [employer] (CURRENT) USE OF ORAL HYPOGLYC 08/16/2019 LAMAR GAVIN MD Ot Z79.899 OTHER [employer] (CURRENT) DRUG THERAPY 08/16/2019 LAMAR GAVIN MD, Ot Z80 .3 FAMILY HISTORY OF MALIGNANT NEOPLASM OF 08/16/2019 LAMAR GAVIN MD Ot Z83 .3 FAMILY HISTORY OF DIABETES MELLITUS 08/16/2019 LAMAR GAVIN MD Ot E11.36 TYPE 2 DIABETES MELLITUS WITH DIABETIC C 08/16/2019 LAMAR GAVIN MD Ot E78.00 PURE HYPERCHOLESTEROLEMIA, UNSPECIFIED 08/16/2019 LAMAR GAVIN MD Ot E78 .2 MIXED HYPERLIPIDEMIA 08/16/2019 LAMAR GAVIN MD Ot F32 .9 MAJOR DEPRESSIVE DISORDER, SINGLE EPISOD 08/16/2019 LAMAR GAVIN MD Ot F41 .9 ANXIETY DISORDER, UNSPECIFIED 08/16/2019 LAMAR GAVIN MD Ot H25.12 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 3 CRUSHING INJURY FINGER 08/17/2019 CARLOS SCANLON DO L Ot E000 .0 CIVILIAN ACTIVITY DONE FOR INCOME OR PAY 08/17/2019 CARLOS SCANLON DO Ot E928 .9 ACCIDENT NOS 08/17/2019 NETTA JUAN MD Ot I48. 91 UNSPECIFIED ATRIAL FIBRILLATION 08/17/2019 NETTA JUAN MD Ot J90 PLEURAL EFFUSION, [...] EYE AND ADN 08/17/2019 TERELL CAPELLAN MD J Ot I10 ESSENTIAL (PRIMARY) HYPERTENSION 08/17/2019 TERELL CAPELLAN MD Ot I48. 91 UNSPECIFIED ATRIAL FIBRILLATION 08/17/2019 TERELL CAPELLAN MD Ot K21. 9 GASTRO-ESOPHAGEAL REFLUX DISEASE WITHOUT 08/17/2019 TERELL CAPELLAN MD Ot Z79. 01 [employer] (CURRENT) USE OF ANTICOAGULANT 08/17/2019 TERELL CAPELLAN MD Ot Z79. 84 [employer] (CURRENT) USE OF ORAL HYPOGLYC 08/17/2019 TERELL [...] 91 UNSPECIFIED ATRIAL FIBRILLATION 08/19/2019 TERELL CAPELLAN MD, Ot K21. 9 GASTRO-ESOPHAGEAL REFLUX DISEASE WITHOUT 08/19/2019 TERELL CAPELLAN MD Ot Z79. 01 [facility] (CURRENT) USE OF ANTICOAGULANT 08/19/2019 TERELL CAPELLAN MD Ot Z79. 84 [employer] (CURRENT) USE OF ORAL HYPOGLYC 08/19/2019 TERELL CAPELLAN MD Ot Z80. 3 FAMILY HISTORY OF MALIGNANT NEOPLASM OF 08/19/2019 TERELL CAPELLAN MD Ot Z82. 49 FAMILY HX OF ISCHEM HEART DIS AND OTH DI 08/19/2019 TERELL CAPELLAN MD, Ot Z95. 9 PRESENCE OF CARDIAC AND VASCULAR IMPLANT 08/19/2019 TERELL CAPELLAN MD, Ot Z99. 89 DEPENDENCE ON OTHER ENABLING [...] MD Ot I25.10 ATHSCL HEART DISEASE OF [place] CORONARY 08/20/2019 LAMAR GAIVN MD Ot Z80 .3 FAMILY HISTORY OF [...] MD Ot I25.10 ATHSCL HEART DISEASE OF [place] CORONARY 08/24/2019 LAMAR GAVIN MD Ot Z80 .3 FAMILY HISTORY OF MALIGNANT NEOPLASM OF 08/24/2019 LAMAR GAVIN MD Ot Z83 .3 FAMILY HISTORY OF DIABETES MELLITUS 09/24/2019 COSENS DO, CARLOS L Ot 927. 3 CRUSHING INJURY FINGER 09/24/2019 COSENS DO, CARLOS L Ot E000 .0 CIVILIAN ACTIVITY DONE FOR INCOME OR PAY 09/24/2019 COSENS DO, CARLOS L Ot E928 .9 ACCIDENT NOS 09/24/2019 NETTA JUAN MD Ot I48. 91 UNSPECIFIED ATRIAL FIBRILLATION 09/24/2019 NETTA JUAN MD Ot J90 PLEURAL EFFUSION, NOT ELSEWHERE CLASSIFI 09/24/2019 NETTA JUAN MD Ot R06. 00 DYSPNEA, UNSPECIFIED 09/24/2019 NETTA JUAN MD Ot I48. 0 PAROXYSMAL ATRIAL FIBRILLATION 02/26/2020 [employer] DO, CARLOS L Ot 927. 3 CRUSHING INJURY FINGER 02/26/2020 COSENS DO, CARLOS L Ot E000 .0 CIVILIAN ACTIVITY DONE FOR INCOME OR PAY 02/26/2020 [employer] DO, CARLOS L Ot E928 .9 ACCIDENT NOS 02/26/2020 NETTA JUAN MD Ot I48. 91 UNSPECIFIED ATRIAL FIBRILLATION 02/26/2020 NETTA JUAN MD Ot J90 PLEURAL EFFUSION, NOT ELSEWHERE CLASSIFI 02/26/2020 NETTA JUAN MD Ot R06. 00 DYSPNEA, UNSPECIFIED 02/26/2020 NETTA JUAN MD Ot I48. 0 PAROXYSMAL ATRIAL FIBRILLATION Procedures Code Description Performed By Per formed [...] Negative Urine-Blood Negative Negative Urine-Color Yellow Colorless-Lt. [place] ow Urine-Epithelial Cells 0-5/HPF Urine-Glucose Negative Negative Urine-Ketones Negative Negative Urine-Leukocytes Negative Negative Urine-Nitrite Negative Negative Urine-Other Urine Saved if Culture Need ed (48hrs from time of collection) Urine-pH 6.0 5-8.5 Urine-Protein Negative Negative Urine-RBC Rare/HPF Urine-Specific [place] 1.020 1.000-1 .030 Urine-WBC Negative Urobilinogen 0.2 [...] Negative Urine-Blood Negative Negative Urine-Color Yellow Colorless-[place]t. [place] ow Urine-Epithelial Cells 0-5/HPF Urine-Glucose Negative Negative Urine-Ketones Negative Negative Urine-Leukocytes Negative Negative Urine-Nitrite Negative Negative Urine-Other Urine Saved if Culture Need ed (48hrs from time of collection) Urine-pH 6.0 5-8.5 Urine-Protein Negative Negative Urine-RBC Negative Urine-Specific [place] 1.015 1.000-1 .030 Urine-WBC Negative Urobilinogen 0.2 0.2-1.0 IFOBT Occult Blood - 06/17/17 23:04 IFOBT Occult Blood NEGATIVE Negative Lyme Ab/Western Blot Reflex - 06/21/17 1 9:33 Lyme IgG/IgM Ab <0.91 ISR 0.00-0.90 Lyme Disease Ab, Quant, IgM <0.80 index 0.00-0.[address] Spotted Fev, IgG, Qn - 7 19:33 RMSF, IgG, EIA Positive Negative RMSF, IgG, IFA - 06/21/17 19:33 RMSF, IgG, IFA <1:64 Neg <1:64 [facility] - 06/21/17 19:33 Sunday Mtn Spotted Fever, IgM 0.22 index 0.00-0.89 Ehrlichia Ab Panel - 06/21/17 19:33 E. chaffeensis (HME) IgG Titer Negative Neg:<1:64 E. chaffeensis (HME) IgM Titer Negative Neg:<1:20 HGE IgG Titer Negative Neg:<1:64 HGE IgM Titer Negative Neg:<1:20 West Nile Virus Antibody,Serum - 7 19:33 West Nile Virus, IgG Negative Negative West Nile Virus, IgM Negative Negative Zika Virus MAC-DWIGHT (EUA) - 06/21/17 19 :33 Zika Virus MAC-DWIGHT (EUA) Negative Neg ative Comprehensive Metabolic Panel - 06/21/17 19:33 Albumin [...] 19:33 ZIKA VIRUS IGM (EUA) NEGATIVE NEGATIVE Sunday Mtn Spotted Fev,IgG - 06/21/17 19: 33 RMSF, IGG, EIA POSITIVE NEGATIVE RMSF, IGG, IFA <1:64 NEG <1:64 Sunday Mtn Spotted Fever, IgM - 06/21/17 19:33 SUNDAY MTN SPOTTED FEVER, IGM 0.22 INDEX 0.00-0.89 Surgical Pathology - 07/10/17 11:40 Surg Path Sent to [place] [facility] PSA Yearly Screen - 01/05/18 08:00 PSA TOTAL 1.0 ng/mL 0.0-4.0 Testosterone - 01/05/18 08:00 Testosterone 420.76 ng/dL Thyroid Stimulating Hormone - 07/13/18 1 5:00 TSH 1.96 mIU/mL 0.32-5.00 Testosterone,Free and Total - 11/03/18 0 9:23 Testosterone, Serum 599 ng/dL 264-916 Free Testosterone(Direct) 13.6 pg/mL 6.8 -21.5 Thyroid Stimulating Hormone - 11/03/18 0 9:23 [...] by glucometer (mas s/volume) 92 mg/dL 70-110 Hemoglobin A1C - 09/26/19 08:40 % A1C 5.70 % 5.40-6.60 AvGlu 126 mg/dL 70-110 Hemoglobin A1C - 12/27/19 07:30 % A1C 5.70 % 5.40-6.60 AvGlu 124 mg/dL 70-110 Lipase - 02/18/20 11:27 Lipase 89 U/L 7-59 Renal Panel - 02/21/20 08:22 Albumin 4.9 g/dL 3.6-5.1 BUN 14 mg/dL 5-25 Calcium 9.7 mg/dL 8.3-10.4 Chloride 102 mmol/L 95-114 CO2 25 mEq/L 22-33 Creat 1.16 mg/dL 0.50-1.50 eGFR 66 mL/min/1.73m2 >59 Glucose 90 mg/dL 70-110 Phosphorus 3.5 mg/dL 2.5-4.8 Potassium 4.3 mmol/L 3.5-5.3 Sodium 139 mmol/L 134-148 Encounters ACCT No. Visit Date/Time Discharge Status Pt. Type Provider Facility Loc./Unit Complaint [id number] 11/06/2018 09:26:00 Document Registration [id number] 06/27/2017 16:23:00 Document Registration [id number] 06/26/2017 15:17:00 Document Registration [id number] 02/21/2020 08:16:00 02/21/2020 23:59 :00 DIS Outpatient Jaimie Dupree [id number] 02/19/2020 09:06:00 02/19/2020 23:59 :00 DIS Outpatient Jaimie Dupree [id number] 02/18/2020 11:22:00 02/18/2020 23:59 :00 DIS Outpatient Jaimie Dupree [id number] 02/17/2020 15:52:00 02/17/2020 23:59 :00 DIS Outpatient Jaimie Dupree [id number] 02/12/2020 13:30:00 02/12/2020 23:59 :00 DIS Outpatient Jaimie Dupree [id number] 01/26/2020 11:14:00 01/26/2020 23:59 :00 DIS Outpatient Brown, Terrell [id number] 12/27/2019 08:50:00 12/27/2019 23:59 :00 DIS Outpatient Leia, Jaimie [id number] 12/27/2019 07:26:00 12/27/2019 23:59 :00 DIS Outpatient Leia, Jaimie [id number] 12/24/2019 15:35:00 12/24/2019 23:59 :00 DIS Outpatient Leia, Jaimie [id number] 09/26/2019 12:45:00 09/26/2019 23:59 :00 DIS Outpatient Leia, Jaimie [id number] 09/26/2019 08:43:00 09/26/2019 23:59 :00 DIS Outpatient Leia, Jaimie [id number] 09/19/2019 15:25:00 09/19/2019 23:59 :00 DIS Outpatient Leia, Jaimie [id number] 07/17/2019 14:44:00 07/17/2019 23:59: 00 DIS Outpatient Leia, Jaimie [id number] 06/24/2019 15:31:00 06/24/2019 23:59: 00 DIS Outpatient Leia, Jaimie [id number] 06/13/2019 14:03:00 06/13/2019 23:59: 00 DIS Outpatient Leia, Jaimie [id number] 06/04/2019 17:07:00 06/04/2019 23:59: 00 DIS Outpatient Leia, Jaimie [id number] 06/04/2019 14:51:00 06/04/2019 23:59: 00 DIS Outpatient Leia, Jaimie [id number] 05/24/2019 08:50:00 05/24/2019 23:59: 00 DIS Outpatient Leia, Jaimie [id number] 05/24/2019 08:20:00 05/24/2019 23:59: 00 DIS Outpatient Leia, Jaimie [id number] 05/16/2019 15:29:00 05/16/2019 23:59: 00 DIS Outpatient Leia, Jaimie [id number] 03/25/2019 12:58:00 03/25/2019 23:59: 00 DIS Outpatient DRAKE, NETTA [id number] 02/13/2019 15:20:00 02/13/2019 23:59: 00 DIS Outpatient Leia, Jaimie [id number] 11/03/2018 09:22:00 11/03/2018 23:59: 00 DIS Outpatient Leia, Jaimie [id number] 07/13/2018 18:20:00 07/13/2018 23:59: 00 DIS Outpatient Brianne Leary [id number] 01/05/2018 16:06:00 01/05/2018 23:59: 00 DIS Outpatient Jaimie Dupree [id number] 07/10/2017 11:11:00 07/10/2017 12:48: 00 DIS Outpatient Kelsi Shah [id number] 07/05/2017 12:58:00 07/05/2017 23:59: 00 DIS Outpatient Yudith Shahмарина [id number] 06/21/2017 19:18:00 06/21/2017 23:59: 00 DIS Outpatient Terrell Cui [id number] 06/21/2017 19:17:00 06/21/2017 23:59: 00 DIS Outpatient Terrell Cui [id number] 06/17/2017 22:26:00 06/18/2017 00:17: 00 DIS Outpatient Hillary Noguera [id number] 05/05/2017 08:12:00 05/05/2017 23:59: 00 DIS Outpatient NETTA JUAN [id number] 04/19/2017 14:20:00 04/19/2017 16:16: 00 [id number]2017 14:30:00 04/10/2017 23:59: 00 DIS Outpatient Terrell Cui [id number] 04/10/2017 20:24:00 04/10/2017 20:24: 00 CAN Outpatient Terrell Cui [id number] 04/10/2017 09:12:00 04/10/2017 09:12: 00 CAN Outpatient Terrell Cui [id number] 02/13/2017 14:23:00 02/13/2017 14:50: 00 DIS Outpatient Law Posey [id number] 02/05/2017 10:30:00 02/05/2017 10:30: 00 DIS Outpatient Cristino Lincoln [id number] 02/02/2017 16:48:00 02/02/2017 18:37: 00 DIS Outpatient Taty [facility] ER [id number] 10/19/2016 14:42:00 10/19/2016 23:59: 00 DIS Outpatient NETTA JUAN [id number] 02/12/2019 15:26:00 Document Registration [id number] 11/08/2018 15:13:00 Document Registration [id number] 11/01/2018 15:18:00 Document Registration [id number] 01/05/2018 07:49:00 Document Registration [id number] 01/04/2018 15:37:00 Document Registration [id number] 12/20/2017 15:35:00 Document Registration [id number] 07/14/2017 09:24:00 Document Registration [id number] 06/21/2017 16:49:00 Document Registration [id number] 06/19/2017 10:41:00 Document Registration [id number] 04/19/2017 15:54:09 Document Registration [id number] 04/10/2017 13:49:00 Document Registration [id number] 08/16/2019 23:41:00 02:03:00 DIS Emergency TERELL CAPELLAN MD [facility] ER L EYE ISSUE [id number] 08/16/2019 06:10:00 08:00:00 DIS Outpatient LAMAR GAVIN MD [facility] CATARACT LEFT EYE [id number] 08/09/2019 06:49:00 08:23:00 DIS Outpatient LAMAR GAVIN MD [facility] CATARACT RIGHT EYE [id number] 08/07/2019 05:35:00 14:57:00 DIS Outpatient LAMAR GAVIN MD [facility] PREOP CATARACT RIGHT EYE [id number] 03/13/2019 14:54:00 23:59:59 CLS Preadmit EZEQUIEL MALAVE [facility] CARD AF,GERD,HTN,PAF,PALPITATIONS [id number] 06/03/2016 14:44:00 23:59:59 CLS Outpatient NETTA JUAN MD [facility] CARD PAF,PALPITATIONS [id number] 04/27/2016 16:40:00 09:00:00 DIS Outpatient NETTA JUAN MD [facility] [id number] 01/08/2016 12:10:00 016 12:10:00 DIS Inpatient NETTA JUAN MD [facility] ICU AFIB,RUNS OF VTACH [id number] 08/21/2015 13:09:00 015 23:59:59 CLS Outpatient NETTA JUAN MD [facility] CARD DYSPNEA,AFIB [id number] 08/20/2015 20:07:00 015 23:34:00 DIS Emergency MELIA ANUM Clemente [facility] ER DIFFICULTY BREATHING [id number] 07/24/2015 17:51:00 015 15:27:00 DIS Inpatient NETTA JUAN MD [facility] CSD AFIB [id number] 05/26/2015 20:25:00 015 08:50:00 DIS Inpatient NETTA JUAN MD [facility] ICU RECURRENT/PERSISTENT A FIB WITH RVR [id number] 05/01/2015 09:55:00 015 18:20:00 DIS Inpatient NETTA JUAN MD [facility] CSD DYSPNEA,FATIGUE,QT PROL ONGATION [id number] 04/30/2015 11:25:00 015 16:45:00 DIS Inpatient NETTA JUAN MD [facility] ICU AFIB PALPITATIONS OBESI TY [id number] 04/01/2015 20:03:00 015 05:30:00 DIS Outpatient NETTA JUAN MD [facility] SLEEP OBSERVED APNEAS SNORING HTN [id number] 03/27/2015 14:13:00 015 15:21:00 DIS Outpatient NETTA JUAN MD [facility] CATH AFIB CP [id number] 03/25/2015 03:00:00 015 18:30:00 DIS Inpatient ENTTA JUAN MD [facility] ICU RECURRENT ATRIAL FIB W/ RVR [id number] 03/10/2015 10:57:00 015 13:50:00 DIS Emergency MELITA ARIAS, VITOR Huitron [facility] ER IRR HEART RATE [id number] 04/06/2013 21:14:00 013 22:13:00 DIS Emergency GREY ARIAS, TORO Atkinson [facility] ER DIVERTICITIS [id number] 02/23/2013 04:26:00 013 15:15:00 DIS Inpatient BETZAIDA ARIAS FACC, GABE BASSETTP CCD S [facility] CSD A-FIB W/ RVR [id number] 02/18/2013 15:25:00 013 14:00:00 DIS Inpatient DRAKE ARIAS, NETTA Marshall [facility] ICU AFIB W RVR, N/V [id number] 02/26/2020 15:11:[address] Outpatient BRIA ARIAS, KELSI [facility] [place] PREOP GALLBLADDER SLUDGE,DYSPHAGIA [id number] 10/08/2014 12:59:[address] Document Registration CARLOS SCANLON DO [facility] RAD [id number] 11/02/2012 16:12:00 Document Registration [id number] 06/21/2017 19:17:00 Document Registration
[2020-02-27 09:36] LABS: BASOPHILS % (AUTO) 0 % (0-10); EOSINOPHILS # (AUTO) 0.1 10^3/uL (0.0-0.3); EOSINOPHILS % (AUTO) 1 % (0-10); HEMATOCRIT 53 % (40-54); HEMOGLOBIN 18.2 G/DL (13.3-17.7); LYMPHOCYTES # (AUTO) 1.6 X 10^3 (1.0-4.0); LYMPHOCYTES % (AUTO) 23 % (12-44); MEAN CORPUSCULAR HEMOGLOBIN 28 PG (25-34); MEAN CORPUSCULAR HGB CONC 34 G/DL (32-36); MEAN CORPUSCULAR VOLUME 83 FL (80-99); MONOCYTES # (AUTO) 0.7 X 10^3 (0.0-1.0); MONOCYTES % (AUTO) 10 % (0-12); NEUTROPHILS # (AUTO) 4.7 X 10^3 (1.8-7.8); NEUTROPHILS % (AUTO) 67 % (42-75); PLATELET COUNT 283 10^3/uL (130-400); RED CELL DISTRIBUTION WIDTH 15.5 % (10.0-14.5)
[2020-02-27] MEDS: LACTATED RINGERS 1,000 ML IV PRN ×2 (10:00→13:15)
[2020-02-27] MEDS ORDERED: BUP/EPI 0.5% 1:200,000 (SENSORCAINE) 30 ML VIAL ONE (11:29)
[2020-02-27] MEDS ORDERED: MIDAZOLAM 2 MG/2 ML (VERSED) VIAL ONE (11:32)
[2020-02-27] MEDS ORDERED: fentaNYL INJECTION 100 MCG/2 ML AMP ONE (11:32)
--- NOTE | 2020-02-27 11:41 | Progress Note-Pre Operative ---
Pre-Operative Progress Note H&P Reviewed The H&P was reviewed, patient examined and no changes noted. Date Seen by Provider: Feb 27, 2020 Time Seen by Provider: 11:00 Date H&P Reviewed: Feb 27, 2020 Time H&P Reviewed: 11:00 Pre-Operative Diagnosis: sx chronic calculous cholecystitis, GERD KELSI FRASER MD Feb 27, 2020 11:41
--- NOTE | 2020-02-27 11:42 | Discharge Inst-Surgical ---
D/C Lap Instructions-BRIA Follow Up Appt in 2 weeks Activity as tolerated No driving for 24 hours No driving while on pain medications Incentive Spirometry use every 2 hours while awake Regular Diet Symptoms to Report: Fever over 101 degree F, Nausea/Vomiting Infection Signs and Symptoms to report: Increased redness, Foul odor of wound, Increased drainage Bathing instructions: May shower Operative Area Clean/Dry; Keep incision clean/dry If any problems/questions: Contact your physician or go to Emergency Room KELSI FRASER MD Feb 27, 2020 11:42
[2020-02-27] MEDS ORDERED: ONDANSETRON 4 MG/2 ML (SDV) Z0FRAN IVP PRN ×2 (11:45→13:45)
[2020-02-27] MEDS ORDERED: ACETAMINOPHEN 325 MG TABLET PO PRN (11:45)
[2020-02-27] MEDS ORDERED: oxyCODONE/APAP 5/325MG (PERCOCET 5) TABLET PO PRN (11:45)
[2020-02-27] MEDS ORDERED: morphine INJ 10 MG/ML 1ML (SYR OR VIAL) IVP PRN ×2 (11:45)
[2020-02-27] MEDS ORDERED: ROCURONIUM 10 MG/ML 5 ML SYRINGE IV ONE (13:08)
[2020-02-27] MEDS ORDERED: LIDOCAINE PF 2% 5 ML (XYLOCAINE) VIAL ONE (13:08)
[2020-02-27] MEDS ORDERED: SEVOFLURANE (ULTANE) 15 ML INHAL SOLN ONE (13:08)
[2020-02-27] MEDS ORDERED: NEOSTIGMINE 3 MG/3 ML VIAL ONE (13:08)
[2020-02-27] MEDS ORDERED: GLYCOPYRROLATE 0.2 MG/ML (ROBINUL) 2 ML VIAL ONE (13:08)
[2020-02-27] MEDS ORDERED: ONDANSETRON 4 MG/2 ML (SDV) Z0FRAN ONE (13:08)
[2020-02-27] MEDS ORDERED: proPOfol 200 MG/20 ML (DIPRIVAN) VIAL IV ONE (13:08)
[2020-02-27] MEDS ORDERED: PHENYLEPHRINE 100 MCG/ML 10 ML (ANESTHESIA) SYR ONE (13:14)
--- NOTE | 2020-02-27 13:31 | Progress Note-Post Operative ---
Post-Operative Progess Note Surgeon (s)/Strike Planning Applications (s) Surgeon Dr. Kaiden Shah M.D. Strike Planning Applications: Rigo Mott APRN Pre-Operative Diagnosis sx chronic calculous cholecystitis, GERD Post-Operative Diagnosis Chronic calculous cholecystitis, Reflux esophagitis stage II, Moderate gastritis, Small hiatal hernia (2 cm), Mild distal esophageal stricture Procedure & Operative Findings Date of Procedure 02/27/20 Procedure Performed/Findings Laparoscopic cholecystectomy, EGD with biopsy and balloon dilatation Anesthesia Type GET Estimated Blood Loss Estimated blood loss (mL): minimal Specimens/Packing Specimens Removed 1) Gallbladder 2) Antrum biopsy 3) GE Junction biopsy 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
[2020-02-27] MEDS ORDERED: ESMOLOL 100 MG/10 ML (BREVIBLOC) VIAL ONE (13:44)
[2020-02-27] MEDS ORDERED: HYDROmorphone 2 MG/ML VIAL (DILAUDID) IV ONE (13:45)
[2020-02-27] MEDS ORDERED: morphine INJ 10 MG/ML 1ML (SYR OR VIAL) IVP ONE (13:45)
--- NOTE | 2020-02-27 14:05 | Anesthesia-General Post-Op ---
General Patient Condition Mental Status/LOC: Same as Preop Cardiovascular: Satisfactory Nausea/Vomiting: Absent Respiratory: Satisfactory Pain: Controlled Complications: Absent Post Op Complications Complications None Follow Up Care/Instructions Patient Instructions None needed. Anesthesia/Patient Condition Patient Condition Patient is doing well, awake in PACU, no complaints, stable vital signs, no apparent adverse anesthesia problems. MAGDA RODRIGUEZ DO Feb 27, 2020 14:04
[2020-02-27] MEDS ORDERED: oxyCODONE/APAP 5/325MG (PERCOCET 5) TABLET ONE (14:47)
--- NOTE | 2020-02-27 14:50 | OPERATIVE REPORT ---
DATE OF SERVICE: 02/27/2020 ATTENDING REMARKETING REP: RACHELLE Staples PREOPERATIVE DIAGNOSES: 1. Symptomatic chronic cholecystitis. 2. Dysphagia. 3. Gastroesophageal reflux disease. POSTOPERATIVE DIAGNOSIS: Gallbladder wall dilatation with multiple small gallstones, reflux esophagitis stage II, mild distal esophageal stricture, small to moderate size hiatal hernia approximately 2.5 cm in size, moderate gastritis. No distal obstructions. PROCEDURE: Laparoscopic cholecystectomy, EGD with biopsy and balloon dilatation. SURGEON: Kelsi Fraser MD ANESTHESIA: General endotracheal. ESTIMATED BLOOD LOSS: Minimal. FINDINGS: Gallbladder wall dilatation with multiple small gallstones, reflux esophagitis stage II, mild distal esophageal stricture, small to moderate size hiatal hernia approximately 2.5 cm in size, moderate gastritis. No distal obstructions. DISPOSITION: The patient tolerated the procedure well. INDICATIONS: The patient is a 49-year-old male known to us. We had done a previous EGD on him before for gastroesophageal reflux disease and was found to have a small to moderate size hiatal hernia, reflux esophagitis as well as a moderate gastritis. He reports that he has had discomfort with bloating in the epigastric region usually after eating meals as well as crampy abdominal pain. He also reports that he has had difficulties swallowing. A CT scan was performed, which did show liver steatosis. An ultrasound was then performed, which did show gallstones. DESCRIPTION OF PROCEDURE: The patient was brought to the operating room, laid supine on the table. After adequate IV pain and sedative medications and general endotracheal intubation, the abdomen was prepped and draped in standard surgical fashion. A 0.5% Marcaine with epinephrine was used to anesthetize overlying skin left upper abdominal quadrant and a transverse skin incision made using 15 blade. An 0 silk suture was applied to the medial aspect incision for retraction and a Veress needle inserted with low opening pressure of 0 mmHg. The abdomen was then insufflated to 15 mmHg pressure. The Veress needle removed and a 5 mm XL trocar placed followed by a 5 mm 45-degree angle laparoscope visualizing the peritoneal cavity. A 4-quadrant abdominal exploration was performed. The patient did have a mild to moderate liver steatosis and hepatomegaly. There were no cirrhotic changes. There was thick omentum and mesentery. The patient was then placed in a reverse Trendelenburg position as well as plane right side up, left side down. The fundus of the gallbladder was then retracted anteriorly and superiorly and the hepatoduodenal ligament was then opened using blunt dissection as well as electrocautery on the hook instrument. The entire critical view of safety was identified including the triangle of TRACEY as well as the cystic duct and artery is only two structures going into the gallbladder as well as the cystic plate behind the proximal gallbladder. A timeout was then taken and the cystic duct and artery were then clipped proximally, distally and cut with EndoShears. The gallbladder was then dissected off the liver bed using cautery on hook instrument with visualization of good hemostasis as well as no leaking ducts of Luschka. The gallbladder was removed through the 10 mm port site using an EndoCatch bag. The 10 mm port site fascia and peritoneum were then closed under direct visualization using a Zander-Sudhakar device and 0 Vicryl suture. The abdomen was desufflated and remaining ports removed. All skin incisions were closed using 4-0 Monocryl running subcuticular sutures. Wounds were then cleaned and covered with Dermabond. Under the same anesthesia, we then proceeded with the EGD and the mouthpiece was applied. The endoscope was placed in the mouth, visualizing the pharynx and hypopharyngeal region. Vocal cords, epiglottis and vallecula identified and appeared to be normal. The endoscope was gently abated esophageal opening and esophagus insufflated. The endoscope was then advanced to the first, second and third portion of esophagus at the level of the GE junction, reflux esophagitis stage II identified as well as mild distal esophageal stricture. A biopsy was taken using forceps with visualization of good hemostasis. The endoscope was then advanced into the stomach and endoscope retroflexed, visualizing a small to moderate size hiatal hernia approximately 2.5 cm in size. There was a moderate gastritis towards the stomach antrum. No formal ulcerations, polyps, or any neoplasms. A biopsy was taken of the antrum to rule out H. pylori with visualization of good hemostasis. Endoscope was then advanced to the pylorus and the first and second portion of the duodenum, which appeared normal with no distal obstructions. We then proceeded with dilatation of distal esophageal stricture and the balloon was placed in the stomach and pulled back to the area of the stricture. We first proceeded to 2 atmospheres of pressure with minimal resistance. We then proceeded with 4 and 6 atmospheres of pressure with moderate resistance or 60 mm in luminal diameter. This was left in place for 60 seconds. The balloon was then desufflated and removed with visualization of good hemostasis as well as no mucosal tears. Endoscope was slowly withdrawn while taking a second look and suctioning of residual air with no additional findings. The patient tolerated the procedure well. We will start IV normal pain medication as well as a clear liquid diet. Once he is tolerating clears, has good pain control with oral pain medication. We will discharge him home. For his reflux esophagitis, hiatal hernia as well as stricture, he will need to proceed with the necessary lifestyle and diet accommodation including small and more frequent meals, avoidance of eating at night as well as head elevation while lying supine. He also needs to avoid caffeinated beverages, spicy, greasy and acidic foods and proceed with any form of diet and exercise regimen for weight loss and maintenance. Job ID: [id number] DocumentID: [id number] Dictated Date: 02/27/2020 13:40:12 Contract Mail Carrier Date: 02/27/2020 14:50:03 Dictated By: KELSI FRASER MD MTDClemente
[2020-02-28] MEDS ORDERED: METH4TAB10 PO (22:48)
== END 2020-02-27 15:40 | disposition home or self-care (01) ==
LOC: SDC 08:43
PROVIDERS: ATTEND Surgery
DX: K81.1 Chronic cholecystitis (principal); K29.50 Unspecified chronic gastritis without bleeding; K21.9 Gastro-esophageal reflux disease without esophagitis; I48.91 Unspecified atrial fibrillation; I25.10 Atherosclerotic heart disease of native coronary artery without angina pectoris; I10 Essential (primary) hypertension; F41.9 Anxiety disorder, unspecified; E23.0 Hypopituitarism; F32.9 Major depressive disorder, single episode, unspecified; E11.9 Type 2 diabetes mellitus without complications; G47.33 Obstructive sleep apnea (adult) (pediatric); Z79.84 Long term (current) use of oral hypoglycemic drugs; Z79.82 Long term (current) use of aspirin; Z79.899 Other long term (current) drug therapy; Z20.828 Contact with and (suspected) exposure to other viral communicable diseases; Z87.891 Personal history of nicotine dependence
CPT/HCPCS: 43239; 43249; 47562; 82962; 85025; 87081; U0002; 36415; 87635; 88304; 88305

== ENCOUNTER 2020-02-28 21:40 | Emergency (ER) | payer BC ==
[~2020-02-28] VITALS: Ht 180 cm; Wt 112.0 kg
--- NOTE | 2020-02-28 21:52 | ED Integumentary General ---
General Stated Complaint: RASH,ELEVATED HEART RATE Source: patient Exam Limitations: no limitations History of Present Illness Date Seen by Provider: Feb 28, 2020 Time Seen by Provider: 21:52 Initial Comments 49-year-old male presents with rash, elevated heart rate. Patient reports that he had his gallbladder out yesterday. The comes in today with a rash. However patient's rashes been there for at least 3 weeks. It is a diffuse rash, macular papular in nature. It is very pruritic. Patient has been trying Benadryl a home. My initial history of present illness patient states that he had had it on and off in the past but was not forthcoming about it being in 3 weeks. He has seen his primary care provider for it. He is mildly tachycardic likely as a result of the surgery yesterday and some mild dehydration. Patient reports that started on his buttock and is spread throughout his whole body. He is unsure of any inciting event. He denies any new lotions soaps or known contacts. Allergies and Home Medications Allergies Coded Allergies: No Known Drug Allergies (Unverified , 08/07/19) Home Medications Aspirin 325 Mg Tablet, 325 MG PO DAILY, (Reported) Atorvastatin Calcium 10 Mg Tablet, 10 MG PO HS, (Reported) Docusate Sodium 100 Mg Capsule, 250 MG PO DAILY, (Reported) Escitalopram Oxalate 10 Mg Tablet, 10 MG PO DAILY, (Reported) Metformin HCl 500 Mg Tablet, 500 MG PO DAILY, (Reported) Metoprolol Succinate 100 Mg Tab.er.24h, 100 MG PO DAILY, (Reported) Pantoprazole Sodium 40 Mg Tablet.dr, 40 MG PO 1700, (Reported) Valsartan 160 Mg Tablet, 160 MG PO DAILY, (Reported) Patient Home Medication List Home Medication List Reviewed: Yes Review of Systems Review of Systems Constitutional: No chills, No fever EENTM: no symptoms reported Respiratory: No cough, No short of breath Cardiovascular: see HPI Gastrointestinal: nausea Genitourinary: no symptoms reported Musculoskeletal: no symptoms reported Skin: see HPI, rash Psychiatric/Neurological: No Symptoms Reported Past Vkrlzgk-Mlwzpt-Fwihij Hx Past Med/Social Hx: Reviewed Nursing Past Med/Soc Hx Patient Social History Type Used: Smokeless Tobacco 2nd Hand Smoke Exposure: No Recent Foreign Travel: No Contact w/Someone Who Travel: No Recent Hopitalizations: No Immunizations Up To Date Tetanus Booster (TDap): More than 5yrs PED Vaccines UTD: No Date of Pneumonia Vaccine: January 27, 2015 Seasonal Allergies Seasonal Allergies: No Past Medical History Surgeries: Yes (HEART CATH 02/2015, CARDIOVERSIONS, ABLATION FOR A FIB X2, COLONOSCOPIES) Cardiac Respiratory: Yes (CPAP) Sleep Apnea Currently Using CPAP: Yes (AT NIGHT) Currently Using BIPAP: No Cardiac: Yes Atrial Fibrillation, Hypertension Neurological: No Reproductive Disorders: Yes (LOW TESTOSTERONE--GETS WEEKLY INJECTIONS) Sexually Transmitted Disease: No HIV/AIDS: No Genitourinary: No Gastrointestinal: Yes Gastroesophageal Reflux, Diverticulosis Musculoskeletal: No (RIGHT LITTLE FINGER DISLOCATION) Endocrine: Yes Hyperthyroidism, Diabetes, Non-Insulin dep HEENT: No Cancer: No Psychosocial: Yes Anxiety, Depression Integumentary: Yes ("FEVER BLISTERS" ) Blood Disorders: No Adverse Reaction/Blood Tranf: No Family Medical History Alzheimer's disease UNCLE Completed stroke 19 FATHER 19 MOTHER Diabetes mellitus 19 MOTHER FH: breast cancer 19 MOTHER FH: cancer GRANDMOTHER GRANDMOTHER FH: congestive heart failure 19 MOTHER Hypertension 19 FATHER Physical Exam Vital Signs Vital Signs - First Documented 02/28/20 21:50 Temp 36.8 Pulse 104 Resp 18 B/P (MAP) 121/72 (88) Pulse Ox 94 O2 Delivery Room Air Capillary Refill : General Appearance: WD/WN, no apparent distress Cardiovascular: normal peripheral pulses, tachycardia Respiratory: chest non-tender, lungs clear, normal breath sounds Neurologic/Psychiatric: 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, alert, normal mood/affect, oriented x 3 Progress/Results/Core Measures Results/Orders Lab Results Laboratory Tests Test 02/28/20 22:00 Range/Units White Blood Count 6.9 4.3-11.0 10^3/uL Red Blood Count 5.85 4.35-5.85 10^6/uL Hemoglobin 16.7 13.3-17.7 G/DL Hematocrit 50 40-54 % Mean Corpuscular Volume 85 80-99 FL Mean Corpuscular Hemoglobin 29 25-34 PG Mean Corpuscular Hemoglobin Concent 34 32-36 G/DL Red Cell Distribution Width 15.0 H 10.0-14.5 % Platelet Count 288 130-400 10^3/uL Mean Platelet Volume 9.5 7.4-10.4 FL Neutrophils (%) (Auto) 75 42-75 % Lymphocytes (%) (Auto) 17 12-44 % Monocytes (%) (Auto) 8 0-12 % Eosinophils (%) (Auto) 0 0-10 % Basophils (%) (Auto) 0 0-10 % Neutrophils # (Auto) 5.2 1.8-7.8 X 10^3 Lymphocytes # (Auto) 1.2 1.0-4.0 X 10^3 Monocytes # (Auto) 0.5 0.0-1.0 X 10^3 Eosinophils # (Auto) 0.0 0.0-0.3 10^3/uL Basophils # (Auto) 0.0 0.0-0.1 10^3/uL Sodium Level 138 135-145 MMOL/L Potassium Level 4.1 3.6-5.0 MMOL/L Chloride Level 103 98-107 MMOL/L Carbon Dioxide Level 22 21-32 MMOL/L Anion Gap 13 5-14 MMOL/L Blood Urea Nitrogen 12 7-18 MG/DL Creatinine 1.25 0.60-1.30 MG/DL Estimat Glomerular Filtration Rate > 60 BUN/Creatinine Ratio 10 Glucose Level 120 H 70-105 MG/DL Calcium Level 8.6 8.5-10.1 MG/DL Corrected Calcium 8.8 8.5-10.1 MG/DL Total Bilirubin 0.5 0.1-1.0 MG/DL Aspartate Amino Transf (AST/SGOT) 42 H 5-34 U/L Alanine Aminotransferase (ALT/SGPT) 56 H 0-55 U/L Alkaline Phosphatase 61 40-136 U/L B-Type Natriuretic Peptide < 10.0 <100.0 PG/ML Total Protein 6.1 L 6.4-8.2 GM/DL Albumin 3.8 3.2-4.5 GM/DL My Orders Orders - ROBINS,CECELIA L DO Ed Iv/Invasive Line Start (02/28/20 21:56) Lactated Ringers (Lr 1000 Ml Iv Solution (02/28/20 21:56) Ondansetron Injection (Zofran Injectio (02/28/20 22:00) Diphenhydramine Injection (Benadryl Inje (02/28/20 22:00) Diphenhydramine Injection (Benadryl Inje (02/28/20 21:56) Chest Pa/Lat (2 View) (02/28/20 21:58) BNP (02/28/20 21:58) Cbc With Automated Diff (02/28/20 21:58) Comprehensive Metabolic Panel (02/28/20 21:58) Ondansetron Injection (Zofran Injectio (02/28/20 21:56) Ammonia (02/28/20 22:08) Medications Given in ED Current Medications Medications Dose Ordered Sig/Ellie Route Start Time Stop Time Status Last Admin Dose Admin Diphenhydramine HCl 50 mg ONCE ONCE IVP 02/28/20 22:00 02/28/20 22:01 DC 02/28/20 22:00 50 MG Lactated Ringer's 1,000 ml @ 0 mls/hr Q0M ONCE IV 02/28/20 21:56 02/28/20 21:58 DC 02/28/20 22:00 0 MLS/HR Ondansetron HCl 4 mg ONCE ONCE IVP 02/28/20 22:00 02/28/20 22:01 DC 02/28/20 22:00 4 MG Vital Signs/I&O 02/28/20 21:50 Temp 36.8 Pulse 104 Resp 18 B/P (MAP) 121/72 (88) Pulse Ox 94 O2 Delivery Room Air Progress Progress Note : Time: 22:45 Progress Note Patient's heart rate improved with some IV fluids. Patient with likely some mild atelectasis and mild dehydration since he is post surgery times one day. Patient with a chronic rash. I discussed with him that I would prescribe him a Medrol Dosepak. He should follow-up with his primary care provider next week for recheck of the symptoms. Discussed with him that that is chronic and it will take the time to figure out what causes rash. Diagnostic Imaging Diagonstic Imaging: Xray Plain Films/CT/US/NM/MRI: chest Comments Mild atelectasis Reviewed: Reviewed by Me Departure Impression Primary Impression: Rash and nonspecific skin eruption Additional Impression: Mild dehydration Disposition: HOME, SELF-CARE Condition: Stable Departure-Patient Inst. Referrals: [facility]EL[facility] (PCP) Primary Care Physician PERICO TEJADA (Family) Primary Care Physician Patient Instructions: Skin Rash (DC), Dehydration, Adult (DC) Add. Discharge Instructions: Emergency department focuses on treating and ruling out life-threatening diseases. Whenever possible, a diagnosis is given. However, most patients are given an impression based on their history, physical exam, and workup during your brief time in the ER. Information about probable diagnosis and other educational material has been provided. Please take the time to read and understand this information. It is very important that you follow up with a physician as discussed during the visit today. Failure to adhere to your follow-up instructions may lead to severe disability, injury, or so please make sure to keep your appointments or obtain one as requested. Please keep in mind the emergency department is not designed to your primary care or "family doctor" and nonurgent issues are best evaluated by an outpatient physician Scripts Methylprednisolone (Methylprednisolone Dose Pack) 4 Mg Tab.ds.pk 4 MG PO UD for 6 Days, #21 PKG PER DOSE PACK INSTRUCTIONS Prov: CECELIA ROBINS DO 02/28/20 CECELIA ROBINS DO Feb 28, 2020 21:52
[2020-02-28] MEDS ORDERED: LACTATED RINGERS 1,000 ML IV ONE (21:56)
[2020-02-28] MEDS ORDERED: ONDANSETRON 4 MG/2 ML (SDV) Z0FRAN ONE (21:56)
[2020-02-28] MEDS ORDERED: diphenhydrAMINE 50 MG/ML INJ (BENADRYL) ONE (21:56)
[2020-02-28] MEDS ORDERED: diphenhydrAMINE 50 MG/ML INJ (BENADRYL) IVP ONE (22:00)
[2020-02-28] MEDS ORDERED: ONDANSETRON 4 MG/2 ML (SDV) Z0FRAN IVP ONE (22:00)
[2020-02-28 22:08] LABS: BASOPHILS % (AUTO) 0 % (0-10); EOSINOPHILS % (AUTO) 0 % (0-10); HEMATOCRIT 50 % (40-54); HEMOGLOBIN 16.7 G/DL (13.3-17.7); LYMPHOCYTES # (AUTO) 1.2 X 10^3 (1.0-4.0); LYMPHOCYTES % (AUTO) 17 % (12-44); MEAN CORPUSCULAR HEMOGLOBIN 29 PG (25-34); MEAN CORPUSCULAR HGB CONC 34 G/DL (32-36); MEAN CORPUSCULAR VOLUME 85 FL (80-99); MEAN PLATELET VOLUME 9.5 FL (7.4-10.4); MONOCYTES # (AUTO) 0.5 X 10^3 (0.0-1.0); MONOCYTES % (AUTO) 8 % (0-12); NEUTROPHILS # (AUTO) 5.2 X 10^3 (1.8-7.8); NEUTROPHILS % (AUTO) 75 % (42-75); PLATELET COUNT 288 10^3/uL (130-400); WHITE BLOOD COUNT 6.9 10^3/uL (4.3-11.0)
[2020-02-28 22:16] LABS: ALBUMIN 3.8 GM/DL (3.2-4.5); CHLORIDE 103 MMOL/L (98-107); POTASSIUM 4.1 MMOL/L (3.6-5.0); SODIUM 138 MMOL/L (135-145)
[2020-02-28 22:18] LABS: CALCIUM 8.6 MG/DL (8.5-10.1)
[2020-02-28 22:19] LABS: GLUCOSE 120 MG/DL (70-105); TOTAL PROTEIN 6.1 GM/DL (6.4-8.2)
[2020-02-28 22:20] LABS: BILIRUBIN,TOTAL 0.5 MG/DL (0.1-1.0); CARBON DIOXIDE 22 MMOL/L (21-32)
[2020-02-28 22:22] LABS: ALKALINE PHOSPHATASE 61 U/L (40-136); CREATININE SERUM 1.25 MG/DL (0.60-1.30); GFR ESTIMATED > 60
[2020-02-28 22:23] LABS: BUN/CREATININE RATIO 10
[2020-02-28 22:25] LABS: ALANINE AMINOTRANSFERASE 56 U/L (0-55)
[2020-02-28] MEDS ORDERED: METH4TAB10 PO (22:48)
[2020-02-28 23:05] VITALS: BP 113/77
--- NOTE | 2020-02-29 07:16 | Diagnostic Imaging Report ---
Indication: Cough. Comparison: 04/27/2016 Findings: Frontal and lateral views of the chest demonstrate bibasilar atelectasis with trace effusions. The heart is prominent without pulmonary edema. There is no pneumothorax. Osseous structures are age-appropriate. Impression: Bibasilar atelectasis with trace effusion. Dictated by: Dictated on workstation # [id number]
== END 2020-02-28 23:05 | disposition home or self-care (01) ==
LOC: EDUNIT# 21:40 → ER 21:43
DX: R21 Rash and other nonspecific skin eruption (principal); E86.0 Dehydration; I10 Essential (primary) hypertension; K21.9 Gastro-esophageal reflux disease without esophagitis; E11.9 Type 2 diabetes mellitus without complications; F32.9 Major depressive disorder, single episode, unspecified; F41.9 Anxiety disorder, unspecified; Z80.3 Family history of malignant neoplasm of breast; Z82.49 Family history of ischemic heart disease and other diseases of the circulatory system; Z79.82 Long term (current) use of aspirin; Z95.9 Presence of cardiac and vascular implant and graft, unspecified; Z79.84 Long term (current) use of oral hypoglycemic drugs
CPT/HCPCS: 36415; 71046; 80053; 83880; 85025

== ENCOUNTER → 2021-09-13 | Outpatient (CLI) | payer BC ==
[~2021-09-13] MED LIST changes: +AMLO-250 PO; +AMLO-251 PO; -AMLO10TA7 PO; -AMLO5TAB9 PO; -LISI10TA2 PO; +LISI10TA25 PO; +METH4TAB10 PO; -PANT40TA3 PO; +PANT40TA52 PO
== END ==
LOC: CARD 10:00
PROVIDERS: ATTEND Internal Medicine Cardiovascular Disease
DX: I11.9 Hypertensive heart disease without heart failure (principal)
CPT/HCPCS: 93306

== ENCOUNTER 2022-06-07 19:42 | Observation (INO) | payer BC ==
[~2022-06-07] VITALS: Ht 182.8 cm; Wt 132.4 kg
--- NOTE | 2022-06-07 19:57 | ED Chest Pain ---
General Chief Complaint: Chest Pain Stated Complaint: CHEST PAIN,N/V,ITCHING ALL OVER Nursing Triage Note: PT ARRIVAL TO ER WITH COMPLAINT OF CHEST PAIN SINCE YESTERDAY AND RASH X A COUPLE WEEKS. CHEST PAIN IS INDEGESTION LIKE PAIN RATED AT 5/10. PT HAS HISTORY OF LIVER PROBLEMS AND HAS HAD THIS TYPE OF RASH BEFORE. RASH IS ON BUTTOCKS. PT WAS SEEN IN [facility] THIS AFTERNOON. Source: patient Exam Limitations: no limitations History of Present Illness Date Seen by Provider: Jun 07, 2022 Time Seen by Provider: 19:57 Initial Comments This is a 51 yo male who presented to the ER via POV with c/o rash, all over itching, and chest discomfort since yesterday. Describes pain as indigestion and has not been able to eat or drink today due to symptoms. Currently rating discomfort 5/10, constant substernal pain that radiates into his back. States he has had rash and itching in past and was related to elevated LFT's. This past week he completed course of Ciprofloxacin and Flagyl for diverticulitis but has had no other recent medications. States he was in Dr. Cobb's office today and had outpatient labs drawn. Allergies and Home Medications Allergies Coded Allergies: No Known Drug Allergies (Unverified , 08/07/19) Patient Home Medication List Home Medication List Reviewed: Yes Aspirin (Aspirin) 325 Mg Tablet, 325 MG PO DAILY, (Reported) Entered as Reported by: GABRIELA GANN on 02/26/20 1541 Last Action: Reviewed Docusate Sodium (Colace) 100 Mg Capsule, 250 MG PO DAILY, (Reported) Entered as Reported by: GABRIELA GANN on 08/07/19 145 Last Action: Reviewed Escitalopram Oxalate (Lexapro) 10 Mg Tablet, 10 MG PO DAILY, (Reported) Entered as Reported by: GABRIELA GANN on 08/07/19 145 Last Action: Reviewed Metformin HCl (Metformin HCl) 500 Mg Tablet, 500 MG PO DAILY, (Reported) Entered as Reported by: GABRIELA GANN on 08/07/19 145 Last Action: Reviewed Metoprolol Succinate (Metoprolol Succinate) 100 Mg Tab.er.24h, 100 MG PO DAILY, (Reported) Entered as Reported by: GABRIELA GANN on 08/07/19 145 Last Action: Reviewed Pantoprazole Sodium (Pantoprazole Sodium) 40 Mg Tablet.dr, 40 MG PO 1700, (Reported) Entered as Reported by: ULISES REYNAGA on 04/30/15 1347 Last Action: Reviewed Valsartan (Valsartan) 160 Mg Tablet, 160 MG PO DAILY, (Reported) Entered as Reported by: GABRIELA GANN on 08/07/19 145 Last Action: Reviewed Discontinued Medications Atorvastatin Calcium (Atorvastatin Calcium) 10 Mg Tablet, 10 MG PO HS, (Reported) Discontinued Reason: No Longer Taking Entered as Reported by: GABRIELA GANN on 08/07/191449 Last Action: Discontinued Methylprednisolone (Methylprednisolone Dose Pack) 4 Mg Tab.ds.pk, 4 MG PO UD Discontinued Reason: No Longer Taking Prescribed by: CECELIA ROBINS on 02/28/20 0216 Last Action: Discontinued Review of Systems Review of Systems Constitutional: see HPI Past Euqlyqh-Nsxozd-Dkedjw Hx Patient Social History Tobacco Use?: No Smokeless Tobacco Frequency: Current Everyday User Use of E-Cig and/or Vaping dev: No Substance use?: No Alcohol Use?: No Pt feels they are or have been: No Immunizations Up To Date Tetanus Booster (TDap): More than 5yrs PED Vaccines UTD: No Influenza Vaccine Up-to-Date: No; Not Current COVID19 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: [employer] Seasonal Allergies Seasonal Allergies: No Past Medical History Surgeries: Yes (HEART CATH 02/2015, CARDIOVERSIONS, ABLATION FOR A FIB X2, COLONOSCOPIES) Cardiac Respiratory: Yes (CPAP) Sleep Apnea Currently Using CPAP: Yes (AT NIGHT) Currently Using BIPAP: No Cardiac: Yes Atrial Fibrillation, Hypertension Neurological: No Reproductive Disorders: Yes (LOW TESTOSTERONE--GETS WEEKLY INJECTIONS) Sexually Transmitted Disease: No HIV/AIDS: No Genitourinary: No Gastrointestinal: Yes Gastroesophageal Reflux, Diverticulosis Musculoskeletal: No (RIGHT LITTLE FINGER DISLOCATION) Endocrine: Yes Hyperthyroidism, Diabetes, Non-Insulin dep HEENT: No Cancer: No Psychosocial: Yes Anxiety, Depression Integumentary: Yes ("FEVER BLISTERS" ) Blood Disorders: No Adverse Reaction/Blood Tranf: No Family Medical History Alzheimer's disease UNCLE Completed stroke 19 FATHER 19 MOTHER Diabetes mellitus 19 MOTHER FH: breast cancer 19 MOTHER FH: cancer GRANDMOTHER GRANDMOTHER FH: congestive heart failure 19 MOTHER Hypertension 19 FATHER Physical Exam Vital Signs Vital Signs - First Documented 06/07/22 19:47 Temp 36.7 Pulse 108 Resp 20 B/P (MAP) 142/112 (122) Pulse Ox 97 O2 Delivery Room Air Capillary Refill : Less Than 3 Seconds Height, Weight, BMI Height: 5'11.00" Weight: 253lbs. 8.0oz. 114.573959rv; 34.00 BMI Method:Stated General Appearance: No Apparent Distress, WD/WN HEENT: PERRL/EOMI, TMs Normal, Normal ENT Inspection, Pharynx Normal, Moist Mucous Membranes, Other (edema of bilateral eyelids ) Neck: Full Range of Motion, Normal Inspection, Supple Respiratory: Lungs Clear, Normal Breath Sounds, No Accessory Muscle Use, No Respiratory Distress Cardiovascular: Regular Rate, Rhythm, No Edema, Normal Peripheral Pulses Gastrointestinal: Normal Bowel Sounds, Soft, Other (epigastric tenderness ) Neurologic/Psychiatric: Alert, Oriented x3, No Motor/Sensory Deficits, Normal Mood/Affect, quality assurance supervisor final II-XII Norm as Tested Skin: Normal Color, Warm/Dry Progress/Results/Core Measures Results/Orders Lab Results Laboratory Tests Test 06/07/22 20:02 Range/Units White Blood Count 11.4 H 4.3-11.0 10^3/uL Red Blood Count 5.94 H 4.30-5.52 10^6/uL Hemoglobin 16.9 13.3-17.7 g/dL Hematocrit 50 40-54 % Mean Corpuscular Volume 83 80-99 fL Mean Corpuscular Hemoglobin 29 25-34 pg Mean Corpuscular Hemoglobin Concent 34 32-36 g/dL Red Cell Distribution Width 13.9 10.0-14.5 % Platelet Count 267 130-400 10^3/uL Mean Platelet Volume 9.1 9.0-12.2 fL Immature Granulocyte % (Auto) 0 % Neutrophils (%) (Auto) 77 H 42-75 % Lymphocytes (%) (Auto) 16 12-44 % Monocytes (%) (Auto) 6 0-12 % Eosinophils (%) (Auto) 0 0-10 % Basophils (%) (Auto) 0 0-10 % Neutrophils # (Auto) 8.8 H 1.8-7.8 10^3/uL Lymphocytes # (Auto) 1.8 1.0-4.0 10^3/uL Monocytes # (Auto) 0.7 0.0-1.0 10^3/uL Eosinophils # (Auto) 0.0 0.0-0.3 10^3/uL Basophils # (Auto) 0.0 0.0-0.1 10^3/uL Immature Granulocyte # (Auto) 0.0 0.0-0.1 10^3/uL Prothrombin Time 13.9 12.2-14.7 SEC INR Comment 1.0 0.8-1.4 Activated Partial Thromboplast Time 31 24-35 SEC Sodium Level 138 135-145 MMOL/L Potassium Level 4.0 3.6-5.0 MMOL/L Chloride Level 103 98-107 MMOL/L Carbon Dioxide Level 20 L 21-32 MMOL/L Anion Gap 15 H 5-14 MMOL/L Blood Urea Nitrogen 13 7-18 MG/DL Creatinine 1.07 0.60-1.30 MG/DL Estimat Glomerular Filtration Rate 83 BUN/Creatinine Ratio 12 Glucose Level 134 H 70-105 MG/DL Calcium Level 9.4 8.5-10.1 MG/DL Corrected Calcium 9.1 8.5-10.1 MG/DL Magnesium Level 1.7 1.6-2.4 MG/DL Total Bilirubin 0.7 0.1-1.0 MG/DL Aspartate Amino Transf (AST/SGOT) 24 5-34 U/L Alanine Aminotransferase (ALT/SGPT) 36 0-55 U/L Alkaline Phosphatase 73 40-136 U/L Creatine Kinase MB 2.7 <6.6 NG/ML Myoglobin 150.9 H 10.0-92.0 NG/ML Troponin I < 0.028 <0.028 NG/ML B-Type Natriuretic Peptide < 10.0 <100.0 PG/ML Total Protein 7.3 6.4-8.2 GM/DL Albumin 4.4 3.2-4.5 GM/DL Lipase 34 8-78 U/L My Orders Orders - SACHIN PIERRE TELESALES ADVISOR Cbc With Automated Diff (06/07/22 19:56) Magnesium (06/07/22 19:56) Chest 1 View, Ap/Pa Only (06/07/22 19:56) Comprehensive Metabolic Panel (06/07/22 19:56) Myoglobin Serum (06/07/22 19:56) Protime With Inr (06/07/22 19:56) Partial Thromboplastin Time (06/07/22 19:56) O2 (06/07/22 19:56) Monitor-Rhythm Ecg Trace Only (06/07/22 19:56) Ed Iv/Invasive Line Start (06/07/22 19:56) Creatine Kinase Mb (06/07/22 19:56) Lipase (06/07/22 19:56) Bnp Holden (06/07/22 19:56) Troponin I Holden (06/07/22 19:56) Nitroglycerin 0.4 Mg Btl 25's (Nitrostat (06/07/22 20:00) Aspirin Chewable Tablet (Baby Aspirin Ch (06/07/22 20:00) Ct Abdomen/Pelvis W (06/07/22 19:56) Ondansetron Injection (Zofran Injectio (06/07/22 20:30) Diphenhydramine Injection (Benadryl Inje (06/07/22 20:45) Iohexol Injection (Omnipaque 350 Mg/Ml 1 (06/07/22 20:45) Sodium Chloride Flush (Catheter Flush Sy (06/07/22 20:45) Ns (Ivpb) (Sodium Chloride 0.9% Ivpb Bag (06/07/22 20:45) Pantoprazole Injection (Protonix Injecti (06/07/22 21:15) Ct Chest Wo (06/07/22 21:40) Medications Given in ED Current Medications Medications Dose Ordered Sig/Ellie Route Start Time Stop Time Status Last Admin Dose Admin Aspirin 324 mg ONCE ONCE PO 06/07/22 20:00 06/07/22 20:01 DC 06/07/22 20:06 324 MG Diphenhydramine HCl 25 mg ONCE ONCE IVP 06/07/22 20:45 06/07/22 20:46 DC 06/07/22 20:42 25 MG Iohexol 100 ml ONCE ONCE IV 06/07/22 20:45 06/07/22 20:46 DC 06/07/22 21:01 100 ML Ondansetron HCl 4 mg ONCE ONCE IVP 06/07/22 20:30 06/07/22 20:31 DC 06/07/22 20:31 4 MG Pantoprazole 40 mg ONCE ONCE IV 06/07/22 21:15 06/07/22 21:16 DC 06/07/22 21:20 40 MG Sodium Chloride 10 ml NEEDED PRN IV 06/07/22 20:45 06/07/22 21:01 10 ML Sodium Chloride 100 ml ONCE ONCE IV 06/07/22 20:45 06/07/22 20:46 DC 06/07/22 21:01 80 ML Vital Signs/I&O 06/07/22 19:47 Temp 36.7 Pulse 108 Resp 20 B/P (MAP) 142/112 (122) Pulse Ox 97 O2 Delivery Room Air Blood Pressure Mean: 122 Progress Progress Note : Progress Note Patient examined, no acute distress. Having significant pain in substernal region of chest, describes as indigestion. Given his cardiac history will initiate cardiac workup and obtain imaging of abd/pelvis. Labs reviewed, no elevation in LFT's, total bili normal, tropinin neg. No acute ischemic changes seen on EKG. Given Benadryl 25mg IV for itching, swelling of eyelids, and to pre treat for CT contrast as he has "sneezing" every time he gets contrast. Tolerated well. CT imaging concerns for fat stranding around small hiatial hernia, recommended CT imaging of chest to further evaluate, orders placed. CT chest again shows small hiatial hernia with fat stranding. Reviewed findings with Dr. Aguirre, electronic organ mechanic surgeon. As patient is unable to keep down liquids he recommends admit observation and will do EGD in am. Patient updated and informed Dr. Shah has performed all of his previous surgeries, he would like Pablo consulted in am. Nursing staff updated. Plan of care reviewed with patient and spouse, they are agreeable with plan. Diagnostic Imaging Comments [facility] [place], [place] NAME: SUMEET BIRD [facility] REC#: [id number] PT STATUS: REG ER : 1970 PHYSICIAN: SACHIN PIERRE APRN ADMIT DATE: 06/07/22/ER Signed Date of Exam:06/07/22 CHEST 1 VIEW, AP/PA ONLY EXAM: CHEST 1 VIEW, AP/PA ONLY INDICATION: Chest pain. COMPARISON: 04/27/2016. FINDINGS: Stable cardiomegaly with normal pulmonary vascular congestion. Scant atelectasis or scarring in the left lung base. No pleural effusion or pneumothorax. No acute osseous findings. IMPRESSION: 1. Scant atelectasis or scarring in the left lung base. 2. Stable cardiomegaly with normal central pulmonary vascularity. Dictated by: Dictated on workstation # [id number] Dict: 06/07/222110 Trans: 06/07/222319 [facility] [id number] Interpreted by: YULIYA CARDOZO MD Electronically signed by: YULIYA CARDOZO MD 06/07/222319 Comments [facility] [place], [place] NAME: SUMEET BIRD [facility] REC#: [id number] PT STATUS: REG ER : 1970 PHYSICIAN: SACHIN PIERRE APRN ADMIT DATE: 06/07/22/ER Signed Date of Exam:06/07/22 CT CHEST WO PROCEDURE: CT chest without contrast. TECHNIQUE: Multiple contiguous axial images were obtained through the chest without the use of intravenous contrast. Auto Exposure Controls were utilized during the CT exam to meet ALARA standards for radiation dose reduction. INDICATION: Fat stranding around hiatal hernia. COMPARISON: CT abdomen and pelvis with IV contrast also performed today. FINDINGS: Again seen is the small esophageal hiatal hernia with mild stranding of the fat about the distal esophagus and hiatal hernia. There is no gas within the mediastinum to suggest perforation. No fluid collections. No lymphadenopathy. Normal heart size. No pericardial or pleural effusions. Calcified granuloma in the right upper lobe. The lungs are otherwise clear. No pneumothorax. No acute osseous findings. IMPRESSION: Again seen is a small esophageal hiatal hernia and mild fat stranding about the hiatal hernia and the distal esophagus below the level of the keyon. There is no fluid collection or gas present within the mediastinum. No pleural effusion. No priors are available for comparison and this finding may be chronic. Nonemergent follow-up with endoscopy is recommended. Dictated by: Dictated on workstation # [id number] Dict: 06/07/222217 Trans: 06/07/222320 [facility] [id number] Interpreted by: YULIYA CARDOZO MD Electronically signed by: YULIYA CARDOZO MD 06/07/222320 Comments [facility] [place], [place] NAME: SUMEET BIRD [facility] REC#: [id number] PT STATUS: REG ER : 1970 PHYSICIAN: SACHIN PIERRE TELESALES ADVISOR ADMIT DATE: 06/07/22/ER Signed Date of Exam:06/07/22 CT ABDOMEN/PELVIS W PROCEDURE: CT abdomen and pelvis with contrast. TECHNIQUE: Multiple contiguous axial images were obtained through the abdomen and pelvis after administration of intravenous contrast. Auto Exposure Controls were utilized during the CT exam to meet ALARA standards for radiation dose reduction. All CT scans use one or more of the following dose optimizing techniques: automated exposure control, MA and/or KvP adjustment based on patient size and exam type or iterative reconstruction. INDICATION: Itching. Rash. Elevated liver enzymes. COMPARISON: None. FINDINGS: Small esophageal hiatal hernia. There is fluid stranding about the distal esophagus and hiatal hernia in the inferior mediastinum. No discrete fluid collections. Cholecystectomy. The liver, pancreas, spleen, adrenals, kidneys, collecting systems and decompressed bladder are negative. Advanced colonic diverticulosis without evidence of active diverticulitis. Normal appendix. No free intraperitoneal air or fluid. No lymphadenopathy. No evidence of bowel obstruction. No acute osseous findings. IMPRESSION: 1. No acute CT findings in the abdomen or pelvis. 2. Small esophageal hiatal hernia with some adjacent fluid stranding about the hiatal hernia and distal esophagus in the inferior mediastinum. No free air is seen in the lower mediastinum. No priors are available for comparison. Recommend correlation with clinical findings and history. CT of the chest may be helpful for further evaluation. Dictated by: Dictated on workstation # [id number] Dict: 06/07/222116 Trans: 06/07/222319 [facility] [id number] Interpreted by: YULIYA CARDOZO MD Electronically signed by: YULIYA CARDOZO MD 06/07/222319 Departure Communication (Admissions) Time/Spoke to Admitting Phy: 23:[address] Falk multiple times in ER and unable to make contact. Will admit based on general surgery recommendations. Will give IVF th rough evening and admit for intractable nausea/vomiting. Plan to have EGD tomorrow. Time/Spoke to Consulting Phy: 22:[address] Aguirre, will have patient admit due to intractable n/v and plan for EGD in am. Impression Primary Impression: Hiatal hernia Additional Impression: Intractable nausea and vomiting Disposition: ADMITTED INPATIENT Condition: Stable Admissions Decision to Admit Reason: Admit from ER (General) Decision to Admit/Date: Jun 07, 2022 Time/Decision to Admit Time: 22:58 Departure-Patient Inst. Referrals: [facility]EL[facility] (PCP) Primary Care Physician PERICO TEJADA (Family) Primary Care Physician SACHIN PIERRE TELESALES ADVISOR Jun 07, 2022 19:57
[2022-06-07] MEDS ORDERED: ASPIRIN 81 MG CHEW (CHILDREN'S ASA) PO ONE (20:00)
[2022-06-07] MEDS ORDERED: NITROGLYCERIN 0.4 MG SL TABS BTL 25'S SL PRN (20:00)
[2022-06-07 20:08] LABS: BASOPHILS % (AUTO) 0 % (0-10); EOSINOPHILS % (AUTO) 0 % (0-10); HEMATOCRIT 50 % (40-54); HEMOGLOBIN 16.9 g/dL (13.3-17.7); LYMPHOCYTES # (AUTO) 1.8 10^3/uL (1.0-4.0); LYMPHOCYTES % (AUTO) 16 % (12-44); MEAN CORPUSCULAR HEMOGLOBIN 29 pg (25-34); MEAN CORPUSCULAR HGB CONC 34 g/dL (32-36); MEAN CORPUSCULAR VOLUME 83 fL (80-99); MEAN PLATELET VOLUME 9.1 fL (9.0-12.2); MONOCYTES # (AUTO) 0.7 10^3/uL (0.0-1.0); MONOCYTES % (AUTO) 6 % (0-12); NEUTROPHILS # (AUTO) 8.8 10^3/uL (1.8-7.8); NEUTROPHILS % (AUTO) 77 % (42-75); PLATELET COUNT 267 10^3/uL (130-400); WHITE BLOOD COUNT 11.4 10^3/uL (4.3-11.0)
[2022-06-07 20:24] LABS: PROTHROMBIN TIME PATIENT 13.9 SEC (12.2-14.7)
[2022-06-07] MEDS ORDERED: ONDANSETRON 4 MG/2 ML (SDV) Z0FRAN IVP ONE (20:30)
[2022-06-07 20:34] LABS: ALBUMIN 4.4 GM/DL (3.2-4.5); BILIRUBIN,TOTAL 0.7 MG/DL (0.1-1.0); CALCIUM 9.4 MG/DL (8.5-10.1); CREATININE SERUM 1.07 MG/DL (0.60-1.30); MAGNESIUM 1.7 MG/DL (1.6-2.4); TOTAL PROTEIN 7.3 GM/DL (6.4-8.2)
[2022-06-07 20:40] LABS: CREATINE KINASE MB 2.7 NG/ML (<6.6)
[2022-06-07] MEDS ORDERED: NS 100 ML (IVPB) BAG IV ONE (20:45)
[2022-06-07] MEDS ORDERED: CATHETER FLUSH 10 ML SYR IV PRN (20:45)
[2022-06-07] MEDS ORDERED: diphenhydrAMINE 50 MG/ML INJ (BENADRYL) IVP ONE (20:45)
[2022-06-07] MEDS ORDERED: IOHEXOL 350 MG/ML 100 ML (OMNIPAQUE 350) VIAL IV ONE (20:45)
--- NOTE | 2022-06-07 21:13 | Diagnostic Imaging Report ---
EXAM: CHEST 1 VIEW, AP/PA ONLY INDICATION: Chest pain. COMPARISON: 04/27/2016. FINDINGS: Stable cardiomegaly with normal pulmonary vascular congestion. Scant atelectasis or scarring in the left lung base. No pleural effusion or pneumothorax. No acute osseous findings. IMPRESSION: 1. Scant atelectasis or scarring in the left lung base. 2. Stable cardiomegaly with normal central pulmonary vascularity. Dictated by: Dictated on workstation # [id number]
[2022-06-07] MEDS ORDERED: PANTOPRAZOLE 40 MG (PROTONIX) VIAL IV ONE (21:15)
--- NOTE | 2022-06-07 21:33 | Diagnostic Imaging Report ---
PROCEDURE: CT abdomen and pelvis with contrast. TECHNIQUE: Multiple contiguous axial images were obtained through the abdomen and pelvis after administration of intravenous contrast. Auto Exposure Controls were utilized during the CT exam to meet ALARA standards for radiation dose reduction. All CT scans use one or more of the following dose optimizing techniques: automated exposure control, MA and/or KvP adjustment based on patient size and exam type or iterative reconstruction. INDICATION: Itching. Rash. Elevated liver enzymes. COMPARISON: None. FINDINGS: Small esophageal hiatal hernia. There is fluid stranding about the distal esophagus and hiatal hernia in the inferior mediastinum. No discrete fluid collections. Cholecystectomy. The liver, pancreas, spleen, adrenals, kidneys, collecting systems and decompressed bladder are negative. Advanced colonic diverticulosis without evidence of active diverticulitis. Normal appendix. No free intraperitoneal air or fluid. No lymphadenopathy. No evidence of bowel obstruction. No acute osseous findings. IMPRESSION: 1. No acute CT findings in the abdomen or pelvis. 2. Small esophageal hiatal hernia with some adjacent fluid stranding about the hiatal hernia and distal esophagus in the inferior mediastinum. No free air is seen in the lower mediastinum. No priors are available for comparison. Recommend correlation with clinical findings and history. CT of the chest may be helpful for further evaluation. Dictated by: Dictated on workstation # [id number]
--- NOTE | 2022-06-07 22:27 | Diagnostic Imaging Report ---
PROCEDURE: CT chest without contrast. TECHNIQUE: Multiple contiguous axial images were obtained through the chest without the use of intravenous contrast. Auto Exposure Controls were utilized during the CT exam to meet ALARA standards for radiation dose reduction. INDICATION: Fat stranding around hiatal hernia. COMPARISON: CT abdomen and pelvis with IV contrast also performed today. FINDINGS: Again seen is the small esophageal hiatal hernia with mild stranding of the fat about the distal esophagus and hiatal hernia. There is no gas within the mediastinum to suggest perforation. No fluid collections. No lymphadenopathy. Normal heart size. No pericardial or pleural effusions. Calcified granuloma in the right upper lobe. The lungs are otherwise clear. No pneumothorax. No acute osseous findings. IMPRESSION: Again seen is a small esophageal hiatal hernia and mild fat stranding about the hiatal hernia and the distal esophagus below the level of the keyon. There is no fluid collection or gas present within the mediastinum. No pleural effusion. No priors are available for comparison and this finding may be chronic. Nonemergent follow-up with endoscopy is recommended. Dictated by: Dictated on workstation # [id number]
[2022-06-07] MEDS ORDERED: ANTACID SUSP 30 ML UDC (MYLANTA) PO ONE (23:00)
[2022-06-07] MEDS ORDERED: LIDOCAINE 2% VISCOUS 15 ML UDC PO ONE (23:00)
[2022-06-08] VITALS (7 sets, daily range): BP systolic 120–142; BP diastolic 58–77
[2022-06-08] MEDS ORDERED: NS IV 1000 ML 1,000 ML ONE (00:40)
[2022-06-08] MEDS ORDERED: fentaNYL INJ 100 MCG/2 ML AMP IV PRN (01:15)
[2022-06-08] MEDS ORDERED: PROMETHAZINE INJ 25 MG/ML (PHENERGAN) AMP IVP PRN (01:15)
[2022-06-08] MEDS ORDERED: CALCIUM CARBONATE 500 MG (TUMS) TAB.CHEW PO PRN (01:15)
[2022-06-08] MEDS ORDERED: METOCLOPRAMIDE INJ 10 MG/2 ML (REGLAN) IV PRN (01:15)
[2022-06-08] MEDS: diphenhydrAMINE 50 MG/ML INJ (BENADRYL) IVP PRN ×3 (01:47→20:08)
[2022-06-08] MEDS: NS IV 1000 ML 1,000 ML IV SCH ×3 (01:47→23:07)
[2022-06-08] MEDS: FAMOTIDINE 20MG/2ML IV (PEPCID) IVP SCH ×3 (01:47→20:08)
[2022-06-08] MEDS: ONDANSETRON 4 MG/2 ML (SDV) Z0FRAN IV PRN ×3 (02:35→23:09)
[2022-06-08 05:43] LABS: BASOPHILS % (AUTO) 0 % (0-10); EOSINOPHILS # (AUTO) 0.1 10^3/uL (0.0-0.3); EOSINOPHILS % (AUTO) 1 % (0-10); HEMATOCRIT 48 % (40-54); HEMOGLOBIN 16.3 g/dL (13.3-17.7); LYMPHOCYTES # (AUTO) 1.4 10^3/uL (1.0-4.0); LYMPHOCYTES % (AUTO) 16 % (12-44); MEAN CORPUSCULAR HEMOGLOBIN 29 pg (25-34); MEAN CORPUSCULAR HGB CONC 34 g/dL (32-36); MEAN CORPUSCULAR VOLUME 84 fL (80-99); MONOCYTES # (AUTO) 0.8 10^3/uL (0.0-1.0); MONOCYTES % (AUTO) 8 % (0-12); NEUTROPHILS # (AUTO) 6.9 10^3/uL (1.8-7.8); NEUTROPHILS % (AUTO) 75 % (42-75); PLATELET COUNT 248 10^3/uL (130-400); WHITE BLOOD COUNT 9.2 10^3/uL (4.3-11.0)
[2022-06-08 06:00] LABS: CALCIUM 8.9 MG/DL (8.5-10.1); CREATININE SERUM 0.99 MG/DL (0.60-1.30); POTASSIUM 4.4 MMOL/L (3.6-5.0)
--- NOTE | 2022-06-08 08:32 | History & Physical-Hospitalist ---
History of Present Illness HPI/Chief Complaint Pt is a 51yoCM with a PMH of HTN, HLD, NIDDMII who presented to the ER due to nausea and vomiting. His reports he has finally gotten some comfort and is attempting to sleep before his EGD. He is laying in bed and appears comfortable with his CPAP in place. He did nod and say his nausea has improved but didn't answer any other questions. Because of this his history is obtained from his and from the emergency room notes. He presented to the emergency department with chest pain and rash. He described the chest pain as indigestion and thought that his liver enzymes were elevated as this is happened in the past. He reported nausea and vomiting with poor oral intake as well. He was given IV Benadryl, Zofran, and Protonix and was still unable to keep anything down. A CT of his abdomen revealed small hiatal hernia with fat stranding. He was admitted for intractable nausea vomiting and surgical consultation in the morning. He does report that he is feeling better as stated above and they are planning on EGD. is requested Dr. FRASER as they have followed with him in the past. Source: patient Date Seen 06/08/22 Time Seen by a Provider: 08:32 Attending Physician [place] PCP Admitting Physician: Raffy Falk MD Attending Physician: Raffy Falk MD Referring Physician Date of Admission Jun 07, 2022 at 22:21 Home Medications & Allergies Home Medications Reviewed patient Home Medication Reconciliation performed by pharmacy medication reconciliations tax map technician and/or nursing. Patients Allergies have been reviewed. Allergies Allergies Coded Allergies No Known Drug Allergies (Abbrnjwhqv79/4/19) Past Urisqhk-Vzfnid-Fuztur Hx Patient Social History Marrital Status: Tobacco Use?: No Smokeless type used: Chew Smokeless Tobacco Frequency: Current Everyday User Use of E-Cig and/or Vaping dev: No Substance use?: No Alcohol Use?: No Pt feels they are or have been: No Immunizations Up To Date Tetanus Booster (TDap): Unknown Hepatitis A: No Hepatitis B: No PED Vaccines UTD: No Date of Pneumonia Vaccine: January 27, 2015 Seasonal Allergies Seasonal Allergies: No Current Status Advance Directives: No Communicates: Verbally Primary Language: Mohawk Preferred Spoken Language: Mohawk Is interpretation needed?: No Implanted or Applied Medical D: None Past Medical History Surgeries: Cardiac Sleep Apnea Currently Using CPAP: Yes (AT NIGHT) Currently Using BIPAP: No Atrial Fibrillation, Hypertension Sexually Transmitted Disease: No HIV/AIDS: No Gastroesophageal Reflux, Diverticulosis Hyperthyroidism, Diabetes, Non-Insulin dep Anxiety, Depression Blood Disorders: No Adverse Reaction/Blood Tranf: No Family Medical History Reviewed Nursing Family Hx Alzheimer's disease UNCLE Completed stroke 19 FATHER 19 MOTHER Diabetes mellitus 19 MOTHER FH: breast cancer 19 MOTHER FH: cancer GRANDMOTHER GRANDMOTHER FH: congestive heart failure 19 MOTHER Hypertension 19 FATHER Review of Systems ROS-Unable to Obtain: limited Constitutional: see HPI; No chills, No fever EENTM: no symptoms reported Respiratory: no symptoms reported Cardiovascular: chest pain Gastrointestinal: abdominal pain, nausea, vomiting Genitourinary: no symptoms reported Musculoskeletal: no symptoms reported Skin: no symptoms reported Psychiatric/Neurological: No Symptoms Reported Physical Exam Physical Exam Vital Signs Vital Signs - First Documented 06/07/22 06/08/22 19:47 01:36 Temp 36.7 Pulse 108 Resp 20 B/P (MAP) 142/112 (122) Pulse Ox 97 O2 Delivery Room Air FiO2 21 Capillary Refill : Less Than 3 Seconds Height, Weight, BMI Height: 5'11.00" Weight: 253lbs. 8.0oz. 114.361241tq; 39.62 BMI Method:Stated General Appearance: No Apparent Distress, WD/WN, Obese HEENT: PERRL/EOMI, Moist Mucous Membranes; No Scleral Icterus (L), No Scleral Icterus (R) Neck: Normal Inspection, Supple Respiratory: Lungs Clear, No Accessory Muscle Use, No Respiratory Distress Cardiovascular: Regular Rate, Rhythm, No JVD, No Murmur Gastrointestinal: Normal Bowel Sounds, Non Tender, Soft Extremity: Normal Capillary Refill, No Calf Tenderness, No Pedal Edema Neurologic/Psychiatric: Alert, Oriented x3, Normal Mood/Affect Results Results/Procedures Labs Laboratory Tests 06/07/22 20:02 06/08/22 05:31 Patient resulted labs reviewed. Imaging: Reviewed Imaging Report [facility] [place] [place] NAME: [facility] REC#: [id number] PT STATUS: REG ER : 1970 PHYSICIAN: SACHIN PIERRE TOP LIFT COMPRESSER ADMIT DATE: 06/07/22/ER Signed Date of Exam:06/07/22 CT ABDOMEN/PELVIS W PROCEDURE: CT abdomen and pelvis with contrast. TECHNIQUE: Multiple contiguous axial images were obtained through the abdomen and pelvis after administration of intravenous contrast. Auto Exposure Controls were utilized during the CT exam to meet ALARA standards for radiation dose reduction. All CT scans use one or more of the following dose optimizing techniques: automated exposure control, MA and/or KvP adjustment based on patient size and exam type or iterative reconstruction. INDICATION: Itching. Rash. Elevated liver enzymes. COMPARISON: None. FINDINGS: Small esophageal hiatal hernia. There is fluid stranding about the distal esophagus and hiatal hernia in the inferior mediastinum. No discrete fluid collections. Cholecystectomy. The liver, pancreas, spleen, adrenals, kidneys, collecting systems and decompressed bladder are negative. Advanced colonic diverticulosis without evidence of active diverticulitis. Normal appendix. No free intraperitoneal air or fluid. No lymphadenopathy. No evidence of bowel obstruction. No acute osseous findings. IMPRESSION: 1. No acute CT findings in the abdomen or pelvis. 2. Small esophageal hiatal hernia with some adjacent fluid stranding about the hiatal hernia and distal esophagus in the inferior mediastinum. No free air is seen in the lower mediastinum. No priors are available for comparison. Recommend correlation with clinical findings and history. CT of the chest may be helpful for further evaluation. Dictated by: Dictated on workstation # [id number] Dict: 06/07/222116 Trans: 06/07/22 2320 [facility] [id number] Interpreted by: YULIYA CARDOZO MD Electronically signed by: YULIYA CARDOZO MD 06/07/222319 [facility] [place], [place] NAME: [facility]ET [facility] REC#: [id number] PT STATUS: REG ER : 1970 PHYSICIAN: SACHIN PIERRE TOP LIFT COMPRESSER ADMIT DATE: 06/07/22/ER Signed Date of Exam:06/07/22 CHEST 1 VIEW, AP/PA ONLY EXAM: CHEST 1 VIEW, AP/PA ONLY INDICATION: Chest pain. COMPARISON: 04/27/2016. FINDINGS: Stable cardiomegaly with normal pulmonary vascular congestion. Scant atelectasis or scarring in the left lung base. No pleural effusion or pneumothorax. No acute osseous findings. IMPRESSION: 1. Scant atelectasis or scarring in the left lung base. 2. Stable cardiomegaly with normal central pulmonary vascularity. Dictated by: Dictated on workstation # [id number] Dict: 06/07/222110 Trans: 06/07/222319 [facility] [id number] Interpreted by: YULIYA CARDOZO MD Electronically signed by: YULIYA CARDOZO MD 06/07/222319 [facility] [place] NAME: [facility]ET [facility] REC#: [id number] PT STATUS: REG ER : 1970 PHYSICIAN: SACHIN PIERRE TOP LIFT COMPRESSER ADMIT DATE: 06/07/22/ER Signed Date of Exam:06/07/22 CT CHEST WO PROCEDURE: CT chest without contrast. TECHNIQUE: Multiple contiguous axial images were obtained through the chest without the use of intravenous contrast. Auto Exposure Controls were utilized during the CT exam to meet ALARA standards for radiation dose reduction. INDICATION: Fat stranding around hiatal hernia. COMPARISON: CT abdomen and pelvis with IV contrast also performed today. FINDINGS: Again seen is the small esophageal hiatal hernia with mild stranding of the fat about the distal esophagus and hiatal hernia. There is no gas within the mediastinum to suggest perforation. No fluid collections. No lymphadenopathy. Normal heart size. No pericardial or pleural effusions. Calcified granuloma in the right upper lobe. The lungs are otherwise clear. No pneumothorax. No acute osseous findings. IMPRESSION: Again seen is a small esophageal hiatal hernia and mild fat stranding about the hiatal hernia and the distal esophagus below the level of the keyon. There is no fluid collection or gas present within the mediastinum. No pleural effusion. No priors are available for comparison and this finding may be chronic. Nonemergent follow-up with endoscopy is recommended. Dictated by: Dictated on workstation # [id number] Dict: 06/07/222217 Trans: 06/07/222320 [id number] Interpreted by: YULIYA CARDOZO MD Electronically signed by: YULIYA CARDOZO MD 06/07/22 1137 Assessment/Plan Admission Diagnosis Intractable nausea and vomiting Admission Status: Observation Assessment and Plan Intractable nausea and vomiting Hiatal hernia NPO Surgery consulted for EGD [place] prn Maybe home after EGD pending results and if able to take in orally HTN NIDDMII HLD Continue home meds as appropriate Blood sugars well controlled Diagnosis/Problems Diagnosis/Problems (1) Essential (primary) hypertension (2) HLD (hyperlipidemia) (3) Non-insulin dependent type 2 diabetes mellitus (4) Intractable nausea and vomiting Status: Acute (5) Hiatal hernia Status: Acute TRACY MARTINEZ MD Jun 08, 2022 8:32 am
[2022-06-08] MEDS ORDERED: TEST200V27 IM (12:03)
[2022-06-08] MEDS ORDERED: DOCU250C11 PO (12:03)
[2022-06-08] MEDS ORDERED: ESCI-2 PO (12:03)
[2022-06-08] MEDS ORDERED: PSYL283P30 PO (12:03)
[2022-06-08] MEDS ORDERED: fentaNYL INJ 100 MCG/2 ML AMP IVP PRN (16:30)
[2022-06-08] MEDS ORDERED: GLUCAGON EMERGENCY 1 MG/KIT IM NR (16:30)
[2022-06-08] MEDS ORDERED: LORazepam INJ 2 MG/ML (ATIVAN) VIAL IVP PRN (16:30)
--- NOTE | 2022-06-08 16:32 | Progress Note-Pre Operative ---
Pre-Operative Progress Note Date of Available H&P: Jun 08, 2022 Date H&P Reviewed: Jun 08, 2022 Time H&P Reviewed: 17:00 History & Physical: No changes noted Pre-Operative Diagnosis: recurrent dysphagia KELSI FRASER MD Jun 08, 2022 16:32
--- NOTE | 2022-06-08 16:57 | CONSULTATION REPORT ---
DATE OF SERVICE: 06/08/2022 ATTENDING RUBBING BED OPERATOR: Jaimie Dupree APRN ADMITTING PHYSICIAN: Dr. Preston. HISTORY OF PRESENT ILLNESS: The patient is a 51-year-old male who presented to the Emergency Department with dysphagia and chest pain. He had reported some nausea and vomiting as well as regurgitation. He states that he only ate breakfast and felt the substernal pressure sensation ever since. CT scan was performed, which did show hiatal hernia. He has had an EGD as well as a laparoscopic cholecystectomy done in 03/2020 and on the EGD was found to have a hiatal hernia as well as a distal esophageal stricture and underwent a balloon dilatation. At this time, he states that he is feeling a little bit better; however, still feel some substernal pressure sensation. We will allow him to have ice chips for now; however, schedule him for an EGD as well as biopsies as appropriate and balloon dilatation tomorrow. He also reports that he did have some pain in the left lower abdominal quadrant approximately 3 weeks ago and was treated with oral antibiotics. Since that time, he developed pruritus in intertriginous zones as well as the anus likely consistent with a fungal infection in areas of skin to skin and heavy moisture. We will treat that with Lotrisone on a b.i.d. basis. PAST MEDICAL HISTORY: Hypertension, hyperlipidemia, diabetes, atrial fibrillation, coronary artery disease, gastroesophageal reflux disease, constipation, sleep apnea, hypogonadism, history of hiatal hernia, history of diverticulosis and diverticulitis. PAST SURGICAL HISTORY: Cardiac catheterization 14, cardiac ablation for atrial fibrillation, 15 and 16. ALLERGIES: No known drug allergies. MEDICATIONS: Valsartan 160 mg daily, metformin 500 mg daily. Testosterone 200 mg intramuscular, Protonix 40 mg daily, atorvastatin 10 mg daily, 10 mg daily, amlodipine 10 mg daily, metoprolol 100 mg daily, meclizine, aspirin 325 mg daily. SOCIAL HISTORY: Positive for chewing tobacco 35 plus years. Negative smoke, negative alcohol. FAMILY HISTORY: Mother, breast cancer, diabetes. Father, hypertension. VITAL SIGNS: Temperature 37.0, blood pressure 142/77, pulse 80, respirations 18, pulse ox 95% on room air. REVIEW OF SYSTEMS: Well-nourished male currently in no acute distress. He is not experiencing any shortness of breath or difficulty breathing. No chest pain, palpitations, diaphoresis. He is having some substernal chest pressure sensation as well as intermittent bouts of what he feels to be similar to muscle spasm. No nausea, vomiting. No hematemesis, no coffee ground emesis. Longstanding history of constipation, no red blood per rectum, no dark tarry stools. No fever, chills, no recent inadvertent weight loss. All other review of systems negative. PHYSICAL EXAMINATION: CHEST: Clear. Good breath sounds bilaterally. HEART: Regular, no murmurs. EXTREMITIES: No lower extremity edema, negative Homans sign. HEENT: No scleral icterus. NECK: No cervical lymphadenopathy. ABDOMEN: Soft, nondistended. There is mild discomfort in the epigastric region on deep palpation. No peritoneal signs. No hernias. SKIN: Warm, dry. LABORATORY DATA: WBC 9.2, hemoglobin 16.3, hematocrit 48, platelets 248. BUN 13, creatinine 0.99. ASSESSMENT AND PLAN: A 51-year-old male with recurrent gastroesophageal reflux disease progressing to dysphagia. We will initially treat him medically with IV fluids to prevent dehydration as well as IV H2 antagonist and antinausea medications. We will also proceed with glucagon as well as adequate pain and anxiety control. We will also schedule him for an EGD as well as biopsies as appropriate as well as dilatation of the strictures identified. He also does appear to have fungal infection due to being treated with antibiotics for suspected diverticulitis a few weeks ago and we will start Lotrisone on a b.i.d. basis on all the affected areas. Job ID: [id number] DocumentID: [id number] Dictated Date: 06/08/2022 16:41:18 Vacation Guide Date: 06/08/2022 16:55:55 Dictated By: KELSI FRASER MD
[2022-06-08] MEDS ORDERED: PANTOPRAZOLE 40 MG (PROTONIX) TAB PO SCH (18:00)
[2022-06-08] MEDS ORDERED: PANTOPRAZOLE 40 MG (PROTONIX) VIAL IV SCH (18:00)
[2022-06-08] MEDS: BETAMETHASONE/CLOTRIM CREAM (LOTRISONE) 45 GM TP SCH (20:09)
[2022-06-08] MEDS ORDERED: PSYLLIUM POWDER (METAMUCIL) 5.8 GM PACKET PO SCH (21:00)
[2022-06-08] MEDS ORDERED: NON-FORMULARY MEDICATION 1 EA EA (Escitalopram Oxalate 10 MG) PO SCH (21:00)
[2022-06-08] MEDS ORDERED: [UNRECOGNIZED DRUG - OTHER] PO SCH (21:00)
[2022-06-08] MEDS ORDERED: DOCUSATE SODIUM 100 MG (COLACE) CAP PO SCH (21:00)
[2022-06-08] MEDS ORDERED: meTOprolol SUCCINATE 100 MG (TOPROL XL) TAB PO SCH (21:00)
[2022-06-08] MEDS ORDERED: DOCUSATE SODIUM 250 MG PO SCH (21:00)
[2022-06-09] VITALS (9 sets, daily range): BP systolic 121–153; BP diastolic 60–75
[2022-06-09] MEDS: diphenhydrAMINE 50 MG/ML INJ (BENADRYL) IVP PRN ×2 (04:52→08:41)
[2022-06-09 05:55] LABS: HEMATOCRIT 47 % (40-54); HEMOGLOBIN 15.4 g/dL (13.3-17.7); MEAN CORPUSCULAR HEMOGLOBIN 28 pg (25-34); MEAN CORPUSCULAR HGB CONC 33 g/dL (32-36); MEAN CORPUSCULAR VOLUME 87 fL (80-99); MEAN PLATELET VOLUME 9.4 fL (9.0-12.2); PLATELET COUNT 246 10^3/uL (130-400); WHITE BLOOD COUNT 6.3 10^3/uL (4.3-11.0)
[2022-06-09 06:06] LABS: POTASSIUM 4.1 MMOL/L (3.6-5.0)
[2022-06-09 06:07] LABS: CALCIUM 8.3 MG/DL (8.5-10.1)
[2022-06-09 06:11] LABS: CREATININE SERUM 1.09 MG/DL (0.60-1.30)
[2022-06-09] MEDS: NS IV 1000 ML 1,000 ML IV SCH ×2 (07:56→08:41)
[2022-06-09] MEDS: FAMOTIDINE 20MG/2ML IV (PEPCID) IVP SCH (08:36)
[2022-06-09] MEDS: BETAMETHASONE/CLOTRIM CREAM (LOTRISONE) 45 GM TP SCH (08:37)
--- NOTE | 2022-06-09 08:45 | Progress Note - Hospitalist ---
Subjective HPI/CC On Admission Date Seen by Provider: Jun 09, 2022 Time Seen by Provider: 08:45 Pt is a 51yoCM with a PMH of HTN, HLD, NIDDMII who presented to the ER due to nausea and vomiting. His reports he has finally gotten some comfort and is attempting to sleep before his EGD. He is laying in bed and appears comfortable with his CPAP in place. He did nod and say his nausea has improved but didn't answer any other questions. Because of this his history is obtained from his and from the emergency room notes. He presented to the emergency department with chest pain and rash. He described the chest pain as indigestion and thought that his liver enzymes were elevated as this is happened in the past. He reported nausea and vomiting with poor oral intake as well. He was given IV Benadryl, Zofran, and Protonix and was still unable to keep anything down. A CT of his abdomen revealed small hiatal hernia with fat stranding. He was admitted for intractable nausea vomiting and surgical consultation in the morning. He does report that he is feeling better as stated above and they are planning on EGD. is requested Dr. FRASER as they have followed with him in the past. Subjective/Events-last exam Pt reports feeling about the same. Still nauseated. Planning for EGD today. Objective Exam Vital Signs Vital Signs Date Time Temp Pulse Resp B/P (MAP) Pulse Ox O2 Delivery O2 Flow Rate FiO2 06/09/22 07:36 37.0 79 18 121/73 (89) 95 Room Air 06/08/22 01:36 21 Capillary Refill : Less Than 3 Seconds General Appearance: No Apparent Distress, Obese Respiratory: Lungs Clear, No Respiratory Distress Cardiovascular: Regular Rate, Rhythm, No Murmur Neurologic/Psychiatric: Alert, Oriented x3 Results/Procedures Lab Laboratory Tests 06/09/22 05:25 Patient resulted labs reviewed. Imaging: Reviewed Imaging Report Assessment/Plan Assessment and Plan Assess & Plan/Chief Complaint Intractable nausea and vomiting Hiatal hernia NPO for EGD Surgery consulted for EGD Zofran prn EGD today HTN NIDDMII HLD Continue home meds as appropriate Blood sugars well controlled Diagnosis/Problems Diagnosis/Problems (1) Essential (primary) hypertension (2) HLD (hyperlipidemia) (3) Non-insulin dependent type 2 diabetes mellitus (4) Intractable nausea and vomiting Status: Acute (5) Hiatal hernia Status: Acute TRACY MARTINEZ MD Jun 09, 2022 08:45
[2022-06-09] MEDS ORDERED: NON-FORMULARY MEDICATION 1 EA EA (Valsartan 160 MG) PO SCH (09:00)
[2022-06-09] MEDS ORDERED: VALSARTAN 80 MG (DIOVAN) TAB PO SCH (09:00)
[2022-06-09] MEDS ORDERED: LACTATED RINGERS 1,000 ML IV ONE (13:38)
[2022-06-09] MEDS ORDERED: LACTATED RINGERS 1,000 ML IV STA (13:45)
[2022-06-09] MEDS ORDERED: HURRICAINE EXT TUBE (BENZOCAINE) XX PRN (13:45)
[2022-06-09] MEDS ORDERED: proPOfol 200 MG/20 ML (DIPRIVAN) VIAL IV ONE (13:53)
[2022-06-09] MEDS ORDERED: MIDAZOLAM 2 MG/2 ML (VERSED) VIAL ONE (13:53)
[2022-06-09] MEDS ORDERED: HURRICAINE EXT TUBE (BENZOCAINE) ONE (13:55)
[2022-06-09] MEDS ORDERED: LIDOCAINE JELLY 2% 6 ML SYRINGE TOP NR (14:00)
[2022-06-09] MEDS ORDERED: LIDOCAINE JELLY 2% 6 ML SYRINGE ONE (14:03)
--- NOTE | 2022-06-09 14:45 | Progress Note-Post Operative ---
Post-Operative Progess Note Surgeon (s)/Drum Sprayer (s) Surgeon KELSI FRASER MD Drum Sprayer: none Pre-Operative Diagnosis recurrent dysphagia Post-Operative Diagnosis reflux esophagitis(grade C), mild dist esoph stricture, moderate HH(3cm), severe gastritis. Procedure & Operative Findings Date of Procedure 06/09/22 Procedure Performed/Findings EGD with bx and balloon dilatation. Anesthesia Type mac Estimated Blood Loss Estimated blood loss (mL): minimal Specimens/Packing Specimens Removed ge jxn, antrum KELSI FRASER MD Jun 09, 2022 14:45
--- NOTE | 2022-06-09 14:57 | Anesthesia-General Post-Op ---
MAC Patient Condition Mental Status/LOC: Same as Preop Cardiovascular: Satisfactory Nausea/Vomiting: Absent Respiratory: Satisfactory Pain: Controlled Complications: Absent Post Op Complications Complications None Follow Up Care/Instructions Patient Instructions None needed. Anesthesiology Discharge Order Discharge Order Patient is doing well, no complaints, stable vital signs, no apparent adverse anesthesia problems. No complications reported per nursing. ITZ MAYER CRNA Jun 09, 2022 14:57
[2022-06-09] MEDS ORDERED: diphenhydrAMINE 50 MG/ML INJ (BENADRYL) IVP PRN (15:00)
[2022-06-09] MEDS ORDERED: FAMO-119 PO (15:04)
[2022-06-09] MEDS ORDERED: ONDA4TAB11 SL (15:04)
[2022-06-09] MEDS ORDERED: PANT40TA52 PO (15:04)
--- NOTE | 2022-06-09 15:05 | Discharge Inst-Simple/Standard ---
Discharge Inst-Standard Patient Instructions/Follow Up Plan of Care/Instructions/FU: Please continue to take your medications as written. Please follow up with your primary care doctor to follow up this hospital stay. Activity as Tolerated: Yes Discharge Diet: Semi-Solid Diet (advance slowly over the next couple of days) Return to The Hospital For: Chest pain, shortness of breath, fever, weakness, if you feel you are getting worse. TRACY MARTINEZ MD Jun 09, 2022 15:05
[2022-06-09] MEDS ORDERED: PANTOPRAZOLE 40 MG (PROTONIX) VIAL IV SCH ×2 (18:00→21:00)
--- NOTE | 2022-06-09 23:07 | OPERATIVE REPORT ---
DATE OF SERVICE: 06/09/2022 ATTENDING HYDROELECTRIC PLANT STRUCTURAL ENGINEER: RACHELLE Staples ADMITTING PHYSICIAN: Dr. Falk. PREOPERATIVE DIAGNOSES: Dysphagia, gastroesophageal reflux disease, persistent nausea and vomiting. POSTOPERATIVE DIAGNOSES: Reflux esophagitis Hemphill grade C with a mild distal esophageal stricture, moderate size hiatal hernia approximately 3 cm in size, severe gastritis. No distal obstructions. PROCEDURE: EGD with biopsy and balloon dilatation. SURGEON: Kelsi Fraser MD ANESTHESIA: Monitored anesthesia care. ESTIMATED BLOOD LOSS: Minimal. FINDINGS: Reflux esophagitis Hemphill grade C with a mild distal esophageal stricture, moderate size hiatal hernia approximately 3 cm in size, severe gastritis. No distal obstructions. DISPOSITION: The patient tolerated the procedure well. INDICATIONS: The patient is a 51-year-old male admitted for persistent nausea and vomiting. He also reports issues pertaining to the dysphagia. He states that after taking in a food bolus he would feel substernal pressure sensation and then would either regurgitate or have dry heaving. Since being admitted, he started on clear liquid diet; however, continued to have issues with nausea and vomiting. He is status post laparoscopic cholecystectomy in 03/2020. He has a known history of hiatal hernia as well as gastroesophageal reflux disease and esophageal stricture in the past. DESCRIPTION OF PROCEDURE: The patient was brought to the endoscopy suite, laid in the left lateral decubitus position. After adequate IV pain and sedative medications and monitored anesthesia care, the mouthpiece was applied. The endoscope was placed in the mouth, visualizing the pharynx and hypopharyngeal region. Vocal cords, epiglottis and vallecula identified and appeared to be normal. The endoscope was then gently intubated in the esophageal opening and esophagus insufflated. The endoscope was then advanced to the first, second and third portion of esophagus at the level of the GE junction, a reflux esophagitis Hemphill grade C identified. There was also mild distal esophageal stricture and a biopsy was taken with forceps with visualization of good hemostasis. The endoscope was then advanced into the stomach and the scope retroflexed, visualizing a moderate size hiatal hernia approximately 3 cm in size. There was a severe diffuse gastritis throughout the stomach, likely secondary to acid hypersecretion. There were no formal ulcerations, polyps, or any neoplasms. A biopsy was taken of the antrum to rule out H. pylori with visualization of good hemostasis. The endoscope was then advanced to the pylorus and the first and second portion of the duodenum, which appeared normal with no distal obstructions. The balloon was then placed in the stomach and pulled back to the area of the stricture. We then proceeded in graded stepwise fashion from 2, 4, then eventually 6 atmospheres of pressure or 20 mm in luminal diameter with moderate resistance and left this in place for approximately 60 seconds. The balloon was then desufflated and removed with visualization of good hemostasis as well as no mucosal tears. The endoscope was then slowly withdrawn while taking a second look and suctioning of residual air with no additional findings. The patient tolerated the procedure well. We will restart him on a clear liquid diet and advance as tolerated and also discontinue the H2 IV antagonist to a PPI acid annealing torch operator on a b.i.d. basis. We will also have him continue with this modality on an as outpatient taken orally. He also needs to proceed with the necessary lifestyle and dietary accommodation including avoidance of caffeinated beverages, spicy, greasy and acidic foods as well as taking small and more frequent meals and avoid eating at night. He also needs to proceed with any form of regularly scheduled diet and exercise modality to lose weight, which would help with his reflux symptoms as well as peptic ulcer disease. Job ID: [id number] DocumentID: [id number] Dictated Date: 06/09/2022 14:28:14 Mortar Mixer Operator Date: 06/09/2022 23:06:59 Dictated By: KELSI FRASER MD MTDClemente
== END 2022-06-09 16:10 | disposition home or self-care (01) ==
LOC: EDUNIT# 19:42 → ER 19:44 → 4TH 22:21
PROVIDERS: ADMIT Internal Medicine; ATTEND Internal Medicine
DX: K21.00 Gastro-esophageal reflux disease with esophagitis, without bleeding (principal); K22.2 Esophageal obstruction; K44.9 Diaphragmatic hernia without obstruction or gangrene; K29.50 Unspecified chronic gastritis without bleeding; F17.210 Nicotine dependence, cigarettes, uncomplicated; I10 Essential (primary) hypertension; E11.9 Type 2 diabetes mellitus without complications; E78.5 Hyperlipidemia, unspecified; Z79.84 Long term (current) use of oral hypoglycemic drugs; Z79.899 Other long term (current) drug therapy
CPT/HCPCS: 43239; 43249; 71045; 71250; 74177; 80048 ×2; 80053; 82553; 82947; 83690; 83735; 83874; 83880; 84484; 85025 ×2; 85027; 85610; 85730; 93005; 93041; 94664; 96361 ×2; 96372; 96374; 96375 ×2; 96376 ×2; 99284; G0378; 36415

== ENCOUNTER 2022-06-20 10:38 | Emergency (ER) | payer BC ==
[~2022-06-20 10:38] MED LIST changes: +DOCU250C11 PO; +ESCI-2 PO; +FAMO-119 PO; +ONDA4TAB11 SL; +PSYL283P30 PO; +TEST200V27 IM
[2022-06-20 11:13] LABS: BASOPHILS % (AUTO) 1 % (0-10); EOSINOPHILS # (AUTO) 0.1 10^3/uL (0.0-0.3); EOSINOPHILS % (AUTO) 2 % (0-10); HEMATOCRIT 51 % (40-54); HEMOGLOBIN 16.9 g/dL (13.3-17.7); LYMPHOCYTES # (AUTO) 2.4 10^3/uL (1.0-4.0); LYMPHOCYTES % (AUTO) 47 % (12-44); MEAN CORPUSCULAR HEMOGLOBIN 29 pg (25-34); MEAN CORPUSCULAR HGB CONC 33 g/dL (32-36); MEAN CORPUSCULAR VOLUME 86 fL (80-99); MEAN PLATELET VOLUME 9.2 fL (9.0-12.2); MONOCYTES # (AUTO) 0.6 10^3/uL (0.0-1.0); MONOCYTES % (AUTO) 13 % (0-12); NEUTROPHILS # (AUTO) 1.9 10^3/uL (1.8-7.8); NEUTROPHILS % (AUTO) 37 % (42-75); PLATELET COUNT 242 10^3/uL (130-400)
[2022-06-20] MEDS ORDERED: ASPIRIN 81 MG CHEW (CHILDREN'S ASA) PO ONE (11:15)
[2022-06-20] MEDS ORDERED: dilTIAZem DRIP PRE-MIX 125 ML IV SCH (11:15)
[2022-06-20] MEDS ORDERED: APIXABAN 5 MG (ELIQUIS) TABLET PO ONE (11:15)
[2022-06-20 11:32] LABS: PROTHROMBIN TIME PATIENT 13.8 SEC (12.2-14.7)
[2022-06-20 11:33] LABS: CHLORIDE 107 MMOL/L (98-107); POTASSIUM 4.2 MMOL/L (3.6-5.0); SODIUM 137 MMOL/L (135-145)
[2022-06-20 11:34] LABS: CALCIUM 8.7 MG/DL (8.5-10.1)
--- NOTE | 2022-06-20 11:34 | Diagnostic Imaging Report ---
EXAMINATION: Chest 1 view HISTORY: Chest pain COMPARISON: 06/07/2022 FINDINGS: Heart size and pulmonary vasculature are normal. The lungs are clear without consolidation, pleural effusion, or pneumothorax. Degenerative changes of the thoracic spine. Osseous structures are otherwise intact. IMPRESSION: 1. No acute radiographic abnormality in the chest. Dictated by: Dictated on workstation # [id number]
[2022-06-20 11:35] LABS: GLUCOSE 145 MG/DL (70-105); TOTAL PROTEIN 6.7 GM/DL (6.4-8.2)
[2022-06-20 11:36] LABS: CARBON DIOXIDE 19 MMOL/L (21-32)
[2022-06-20 11:37] LABS: BILIRUBIN,TOTAL 0.4 MG/DL (0.1-1.0)
[2022-06-20 11:38] LABS: ALKALINE PHOSPHATASE 67 U/L (40-136)
[2022-06-20 11:39] LABS: CREATININE SERUM 1.15 MG/DL (0.60-1.30); GFR ESTIMATED 76
[2022-06-20 11:40] LABS: BUN/CREATININE RATIO 12
[2022-06-20 11:42] LABS: ALANINE AMINOTRANSFERASE 53 U/L (0-55)
--- NOTE | 2022-06-20 12:35 | ED Cardiac General ---
History of Present Illness General Chief Complaint: Cardiac/General Problems Stated Complaint: A FIB Nursing Triage Note: PT AMB TO RM 7 WITH C/O BEING IN AFIB SINCE MONDAY. PT STATES HE CALLED DR COBB TODAY AND WAS TOLD TO COME TO ER AND HE WILL CARDIOVERT IF NEEDED Source: patient Exam Limitations: no limitations History of Present Illness Date Seen by Provider: Jun 20, 2022 Time Seen by Provider: 12:34 Initial Comments To ER by private vehicle with reports of palpitations consistent with prior episodes of atrial fibrillation since Monday. He is been in atrial fibrillation based on symptoms for 72 to 96 hours at this point. He called Dr. Cobb and told him to come to the emergency room to be cardioverted. However, patient stopped his Eliquis about 2 years ago after 2 ablations for atrial fibrillation believed to be successful. He is currently on prednisone for recurrent hives and he thinks that may be what triggered this episode of atrial fibrillation with rapid ventricular response. 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) Allergies and Home Medications Allergies Coded Allergies: No Known Drug Allergies (Unverified , 08/07/19) Patient Home Medication List Home Medication List Reviewed: Yes Aspirin (Aspirin) 325 Mg Tablet, 325 MG PO DAILY, (Reported) Entered as Reported by: GABRIELA GANN on 02/26/20 1541 Docusate Sodium (Docusate Sodium) 250 Mg Capsule, 250 MG PO HS, (Reported) Entered as Reported by: PK FREEMAN on 06/08/22 1203 Escitalopram Oxalate (Escitalopram Oxalate) 10 Mg Tablet, 10 MG PO HS, (Reported) Entered as Reported by: PK FREEMAN on 06/08/22 1203 Famotidine (Pepcid) 20 Mg Tablet, 20 MG PO BID Prescribed by: TRACY MARTINEZ on 06/09/22 1504 Metformin HCl (Metformin HCl) 500 Mg Tablet, 500 MG PO DAILY, (Reported) Entered as Reported by: GABRIELA GANN on 08/07/19 1450 Metoprolol Succinate (Metoprolol Succinate) 100 Mg Tab.er.24h, 100 MG PO HS, (Reported) Entered as Reported by: GABRIELA GANN on 08/07/19 1450 Ondansetron (Ondansetron Odt) 4 Mg Tab.rapdis, 4 MG SL Q4H PRN for NA USEA/VOMITING Prescribed by: TRACY MARTINEZ on 06/09/22 1504 Pantoprazole Sodium (Pantoprazole Sodium) 40 Mg Tablet.dr, 40 MG PO BID Prescribed by: TRACY MARTINEZ on 06/09/22 1504 Psyllium Husk/Aspartame (Metamucil Sugar-Free Powder) 3.4 Gram/5.8 Gram Powder, 283 GM PO HS, (Reported) Entered as Reported by: PK FREEMAN on 06/08/22 1203 Testosterone Cypionate (Depo-Testosterone) 200 Mg/Ml Vial, 0.5 ML IM FRI, (Reported) Entered as Reported by: PK FREEMAN on 06/08/22 1203 Valsartan (Valsartan) 160 Mg Tablet, 160 MG PO DAILY, (Reported) Entered as Reported by: GABRIELA GANN on 08/07/19 1450 Review of Systems Review of Systems Constitutional: see HPI EENTM: No Symptoms Reported Respiratory: No Symptoms Reported Cardiovascular: See HPI, Chest Pain, Palpitations Gastrointestinal: No Symptoms Reported Genitourinary: No Symptoms Reported Musculoskeletal: no symptoms reported Skin: no symptoms reported Psychiatric/Neurological: No Symptoms Reported Endocrine: No Symptoms Reported Hematologic/Lymphatic: No Symptoms Reported Past Cjibghb-Ggtibb-Mucler Hx Patient Social History Tobacco Use?: No Use of E-Cig and/or Vaping dev: No Substance use?: No Alcohol Use?: No Pt feels they are or have been: No Immunizations Up To Date Tetanus Booster (TDap): More than 5yrs PED Vaccines UTD: No Influenza Vaccine Up-to-Date: No; Not Current First/Initial COVID19 Vaccinat: YES Second COVID19 Vaccination Bimal: YES Third COVID19 Vaccination Date: YES Seasonal Allergies Seasonal Allergies: No Past Medical History Surgery/Hospitalization HX: HTN, AFIB, ABLASION X2, ABHIJIT, Surgeries: Yes (HEART CATH 02/2015, CARDIOVERSIONS, ABLATION FOR A FIB X2, COLONOSCOPIES) Cardiac Respiratory: Yes (CPAP) Sleep Apnea Currently Using CPAP: Yes (AT NIGHT) Currently Using BIPAP: No Cardiac: Yes Atrial Fibrillation, Hypertension Neurological: No Reproductive Disorders: Yes (LOW TESTOSTERONE--GETS WEEKLY INJECTIONS) Sexually Transmitted Disease: No HIV/AIDS: No Genitourinary: No Gastrointestinal: Yes Gastroesophageal Reflux, Diverticulosis Musculoskeletal: No (RIGHT LITTLE FINGER DISLOCATION) Endocrine: Yes Hyperthyroidism, Diabetes, Non-Insulin dep HEENT: No Cancer: No Psychosocial: Yes Anxiety, Depression Integumentary: Yes ("FEVER BLISTERS" ) Blood Disorders: No Adverse Reaction/Blood Tranf: No Family Medical History Alzheimer's disease UNCLE Completed stroke 19 FATHER 19 MOTHER Diabetes mellitus 19 MOTHER FH: breast cancer 19 MOTHER FH: cancer GRANDMOTHER GRANDMOTHER FH: congestive heart failure 19 MOTHER Hypertension 19 FATHER Physical Exam Vital Signs Vital Signs - First Documented 06/20/22 10:49 Temp 36.4 Pulse 106 Resp 16 B/P (MAP) 133/84 (100) Capillary Refill : Height, Weight, BMI Height: 5'11.00" Weight: 253lbs. 8.0oz. [id number]; 39.62 BMI Method:Stated General Appearance: No Apparent Distress, WD/WN HEENT: PERRL/EOMI, TMs Normal Respiratory: No Accessory Muscle Use, No Respiratory Distress Cardiovascular: Normal Peripheral Pulses, Tachycardia, Other (Narrow complex irregular rate of 1 40-1 60 blood pressure is fine) Gastrointestinal: Normal Bowel Sounds, Non Tender, Soft Extremity: Normal Capillary Refill, Normal Inspection Neurologic/Psychiatric: Alert, Oriented x3 Skin: Normal Color, Warm/Dry Progress/Results/Core Measures Results/Orders Lab Results Laboratory Tests Test 06/20/22 11:00 Range/Units White Blood Count 5.0 4.3-11.0 10^3/uL Red Blood Count 5.90 H 4.30-5.52 10^6/uL Hemoglobin 16.9 13.3-17.7 g/dL Hematocrit 51 40-54 % Mean Corpuscular Volume 86 80-99 fL Mean Corpuscular Hemoglobin 29 25-34 pg Mean Corpuscular Hemoglobin Concent 33 32-36 g/dL Red Cell Distribution Width 15.0 H 10.0-14.5 % Platelet Count 242 130-400 10^3/uL Mean Platelet Volume 9.2 9.0-12.2 fL Immature Granulocyte % (Auto) 0 % Neutrophils (%) (Auto) 37 L 42-75 % Lymphocytes (%) (Auto) 47 H 12-44 % Monocytes (%) (Auto) 13 H 0-12 % Eosinophils (%) (Auto) 2 0-10 % Basophils (%) (Auto) 1 0-10 % Neutrophils # (Auto) 1.9 1.8-7.8 10^3/uL Lymphocytes # (Auto) 2.4 1.0-4.0 10^3/uL Monocytes # (Auto) 0.6 0.0-1.0 10^3/uL Eosinophils # (Auto) 0.1 0.0-0.3 10^3/uL Basophils # (Auto) 0.0 0.0-0.1 10^3/uL Immature Granulocyte # (Auto) 0.0 0.0-0.1 10^3/uL Prothrombin Time 13.8 12.2-14.7 SEC INR Comment 1.0 0.8-1.4 Activated Partial Thromboplast Time 23 L 24-35 SEC Sodium Level 137 135-145 MMOL/L Potassium Level 4.2 3.6-5.0 MMOL/L Chloride Level 107 98-107 MMOL/L Carbon Dioxide Level 19 L 21-32 MMOL/L Anion Gap 11 5-14 MMOL/L Blood Urea Nitrogen 14 7-18 MG/DL Creatinine 1.15 0.60-1.30 MG/DL Estimat Glomerular Filtration Rate 76 BUN/Creatinine Ratio 12 Glucose Level 145 H 70-105 MG/DL Calcium Level 8.7 8.5-10.1 MG/DL Corrected Calcium 8.7 8.5-10.1 MG/DL Magnesium Level 2.0 1.6-2.4 MG/DL Total Bilirubin 0.4 0.1-1.0 MG/DL Aspartate Amino Transf (AST/SGOT) 30 5-34 U/L Alanine Aminotransferase (ALT/SGPT) 53 0-55 U/L Alkaline Phosphatase 67 40-136 U/L Myoglobin 136.3 H 10.0-92.0 NG/ML Troponin I < 0.028 <0.028 NG/ML Total Protein 6.7 6.4-8.2 GM/DL Albumin 4.0 3.2-4.5 GM/DL Thyroid Stimulating Hormone (TSH) 2.07 0.35-4.94 UIU/ML My Orders Orders - KENDY CADENA APRN Ekg Tracing (06/20/22 10:57) Thyroid Stimulating Hormone (10/17/22 11:02) Cbc With Automated Diff (06/20/22 11:02) Comprehensive Metabolic Panel (06/20/22 11:02) Magnesium (06/20/22 11:02) Chest 1 View, Ap/Pa Only (06/20/22 11:02) Myoglobin Serum (06/20/22 11:02) Protime With Inr (06/20/22 11:02) Partial Thromboplastin Time (06/20/22 11:02) O2 (06/20/22 11:02) Monitor-Rhythm Ecg Trace Only (06/20/22 11:02) Lipid Panel (06/21/22 06:00) Ed Iv/Invasive Line Start (06/20/22 11:02) Troponin I Holden (06/20/22 11:02) Aspirin Chewable Tablet (Baby Aspirin Ch (06/20/22 11:15) Apixaban Tablet (Eliquis Tablet) (06/20/22 11:15) Diltiazem Injection (Cardizem Injection) (06/20/22 11:15) Diltiazem Drip Pre-Mix (Cardizem Drip Pr (06/20/22 11:15) Diltiazem Cd 24 Hr Capsule (Cardizem Cd (06/20/22 11:15) Medications Given in ED Current Medications Medications Dose Ordered Sig/Ellie Route Start Time Stop Time Status Last Admin Dose Admin Apixaban 5 mg ONCE ONCE PO 06/20/22 11:15 06/20/22 11:16 DC 06/20/22 11:22 5 MG Diltiazem HCl 10 mg ONCE ONCE IVP 06/20/22 11:15 06/20/22 11:16 DC 06/20/22 11:22 10 MG Diltiazem HCl 240 mg ONCE ONCE PO 06/20/22 11:15 06/20/22 11:16 DC 06/20/22 11:30 240 MG Vital Signs/I&O 06/20/22 06/20/22 06/20/22 10:49 11:22 11:25 Temp 36.4 Pulse 106 113 113 Resp 16 B/P (MAP) 133/84 (100) 133/84 133/84 Blood Pressure Mean: 100 Departure Communication (Admissions) Gave Cardizem 10 mg IV bolus then 10 mg an hour as well as 240 mg CD. Also gave him an Eliquis 5 mg tablet. Rate slowly came down to the 90-1 10 range. Maintain a normal blood pressure. Because he has been in this rhythm for 72 to 96 hours will not do electrical cardioversion here. Spoke with Dr. Cobb, we will discharged home on Eliquis and oral Cardizem and he will follow-up with him in the clinic. Impression Primary Impression: Atrial fibrillation with RVR Disposition: HOME, SELF-CARE Condition: Stable Departure-Patient Inst. Decision time for Depature: 12:34 Referrals: [facility]/ (PCP) Primary Care Physician PERICO TEJADA (Family) Primary Care Physician Patient Instructions: Atrial Fibrillation Add. Discharge Instructions: 1. Medications have been sent into [facility]. Start the next dose of oral anticoagulant this evening. Next dose of Cardizem would be tomorrow morning. Return to ER for any palpitations chest pain shortness of breath or any other concerns. Call Dr. Cobb today to make an appointment to be seen for follow-up later this week. All discharge instructions reviewed with patient and/or family. Voiced unde rstanding. KENDY CADENA APRN Jun 20, 2022 12:35
[2022-06-20 12:40] VITALS: BP 126/78
== END 2022-06-20 12:41 | disposition home or self-care (01) ==
LOC: EDUNIT# 10:38 → ER 10:41
DX: I48.20 Chronic atrial fibrillation, unspecified (principal); G47.30 Sleep apnea, unspecified; Z98.61 Coronary angioplasty status; Z99.89 Dependence on other enabling machines and devices; Z91.14 Patient's other noncompliance with medication regimen
CPT/HCPCS: 36415; 71045; 80053; 83735; 83874; 84443; 84484; 85025; 85610; 85730; 93005; 93041

== ENCOUNTER 2022-06-29 07:35 | Day surgery (SDC) | payer BC ==
[~2022-06-29] VITALS: Ht 181.6 cm; Wt 127.2 kg
[2022-06-29] MEDS ORDERED: NS IV 1000 ML 1,000 ML ONE (07:57)
[2022-06-29] MEDS ORDERED: NS IV 1000 ML 1,000 ML IV SCH (08:00)
[2022-06-29] MEDS ORDERED: proPOfol 200 MG/20 ML (DIPRIVAN) VIAL IV ONE (08:32)
[2022-06-29 08:38] VITALS: BP 125/88
--- NOTE | 2022-06-29 08:38 | Cardiac Procedure Note-CS/ASA ---
Pre-Procedure Note Pre-Op Procedure Note Date of Available H&P: Jun 28, 2022 Date H&P Reviewed: Jun 29, 2022 Time H&P Reviewed: 08:30 History & Physical: H&P Reviewed, Patient Examed, No changes noted Pre-Operative Diagnosis: A fib Conscious Sedation Pre-Proced Time 08:30 ASA Score 3 For ASA 3 and 4: Consider anesthesia and medical clearance. Also, for patients with a history of failed moderate sedation consider anesthesia. Airway Lungs Heart ASA score ASA 1: a normal healthy patient ASA 2: a patient with a mild systemic disease (mid diabetes, controlled hypertension, obesity ASA 3: a patient with a severe systemic disease that limits activity (angina, COPD, prior Myocardial infarction) ASA 4: a patient with an incapacitating disease that is a constant threat to life (CHF, renal failure) ASA 5: a moribund patient not expected to survive 24 hrs. (ruptured aneurysm) ASA 6: a declared brain- patient whose organs are being harvested. For emergent operations, add the letter E after the classification Mallampati Classification Grade 3 Sedation Plan Analgesia, Amnesia, Plan communicated to team members, Discussed options with patient/fam, Discussed risks with patient/fam The patient is an appropriate candidate to undergo the planned procedure, sedation, and anesthesia. The patient immediately re-assessed prior to indication. NETTA JUAN MD Jun 29, 2022 08:38
[2022-06-29] MEDS ORDERED: FAMO20TA3 PO (08:39)
[2022-06-29] MEDS ORDERED: DILT240C91 PO (08:39)
[2022-06-29] MEDS ORDERED: OMEP40CA6 PO (08:39)
[2022-06-29] MEDS ORDERED: APIX5TAB PO (08:39)
[2022-06-29] MEDS ORDERED: METF-397 PO (08:39)
[2022-06-29] MEDS ORDERED: HYDR-700 PO (08:39)
[2022-06-29] MEDS ORDERED: DOCU100T2 PO (08:39)
[2022-06-29] MEDS ORDERED: PANT40TA52 PO (08:39)
--- NOTE | 2022-06-29 08:39 | Cardioversion ---
Cardioversion PROCEDURE PHYSICIAN: Netta Cobb DATE OF PROCEDURE: 06/29/22 DIRECT EXTERNAL ELECTRICAL CARDIOVERSION: Indications: Atrial Fibrillation with rapid ventricular rate Preoperative diagnoses: Atrial Fibrillation with rapid ventricular rate Postoperative diagnosis: Sinus rhythm, Successful Electrical Cardioversion Anesthesia: By Anesthesia services Complications: None Specimen: None Contrast: 0 Flouroscopy: none Procedure Details: The patient was brought the chemical laboratory technician after informed consent was taken, all the risks and complications were explained including the risk of stroke. Electrical cardioversion was carried out with anesthesia support with propofol. 120 J attempt with synchronized shock was not successful a second attempt with 200 joules of synchronized shock was delivered through external patches which pr omptly restored sinus rhythm. The patient tolerated the procedure well. Conclusions: Successful electrical cardioversion and terminating atrial fibrillation Final Diagnosis: Paroxysmal atrial fibrillation Palpitation Hypertension Hyperlipidemia NETTA COBB MD Jun 29, 2022 08:39
[2022-06-29] MEDS ORDERED: DRON400T6 PO (08:43)
--- NOTE | 2022-06-29 08:43 | Discharge Inst-Post CATH ---
Discharge Inst-CATH/EP Problems Reviewed?: Yes Post Cardiac Cath/EP D/C Inst Follow Up/Plan Appointment with Dr. Cobb's office next week <b>CARDIAC CATH/EP PROCEDURE DISCHARGE INSTRUCTIONS</b> ACTIVITY * Go Home directly and rest. * Limit activity of the leg (or wrist if it was used) for 7 days including aerobics, swimming, jogging, bicycling, etc. * Restrict stair-climbing for 7 days if possible, if not, climb up with your non-cath leg, then bring together on the same step. * Avoid lifting, pushing, pulling or excessive movement of the affected extremity for 7 days. * Customary sexual activity may be resumed after 2 days-use caution not to use a position that strains or causes pain to the affected extremity. * No driving for 24 hours. * NO SMOKING. * Avoid straining for bowel movements for 7 days. * Gentle walking on level ground is allowed. * Returning to work will depend on the type of procedure and the results. Your doctor will discuss this with you. CALL YOUR DOCTOR FOR ANY OF THE FOLLOWING: *If bleeding from the puncture site occurs- Apply gentle pressure to site with clean cloth and call your doctor or EMS. * If a knot or lump forms under the skin, increases in size, or causes pain. * If bruising appears to be worsening or moving further down your leg instead of disappearing. * Temperature above 101 F. CARE OF YOUR GROIN INCISION; * Bruising or purple discoloration of the skin near the puncture site is common. * You may shower only, no bathtub bathing for 5 days. Be careful to avoid slipping as your leg may feel stiff. * If a closure device was used on your femoral artery, please see the attached guide regarding care of the device and your leg. * Leave dressing on FOR 24 hours. CARE OF YOUR WRIST INCISION; * Bruising or purple discoloration of the skin near the puncture site is common. * You may shower. * DO NOT submerge wrist. * Leave dressing on FOR 24 hours. NETTA COBB MD Jun 29, 2022 08:43
[2022-06-29] MEDS ORDERED: AMIODARONE FOR BOLUS 150 MG in NS (IVPB) 100 ML IV ONE (08:45)
[2022-06-29 08:47] VITALS: BP 117/75
[2022-06-29 09:00] VITALS: BP 97/62
--- NOTE | 2022-06-29 09:09 | Anesthesia-General Post-Op ---
MAC Patient Condition Mental Status/LOC: Same as Preop Cardiovascular: Satisfactory Nausea/Vomiting: Absent Respiratory: Satisfactory Pain: Controlled Complications: Absent Post Op Complications Complications None Follow Up Care/Instructions Patient Instructions None needed. Anesthesiology Discharge Order Discharge Order Patient is doing well, no complaints, stable vital signs, no apparent adverse anesthesia problems. No complications reported per nursing. GERMÁN SAEED CRNA Jun 29, 2022 09:09
[2022-06-29 09:13] VITALS: BP 121/83
[2022-06-29 09:37] VITALS: BP 98/60
== END 2022-06-29 10:00 | disposition home or self-care (01) ==
LOC: CATH 07:35
PROVIDERS: ATTEND Internal Medicine Cardiovascular Disease
DX: I48.0 Paroxysmal atrial fibrillation (principal); I10 Essential (primary) hypertension; E05.90 Thyrotoxicosis, unspecified without thyrotoxic crisis or storm; E66.01 Morbid (severe) obesity due to excess calories; L29.8 Other pruritus; E29.1 Testicular hypofunction; K21.9 Gastro-esophageal reflux disease without esophagitis; G47.30 Sleep apnea, unspecified; Z79.82 Long term (current) use of aspirin; Z79.01 Long term (current) use of anticoagulants; Z79.899 Other long term (current) drug therapy; Z68.38 Body mass index [BMI] 38.0-38.9, adult
CPT/HCPCS: 92960; 93005

== ENCOUNTER 2022-12-15 05:38 | Outpatient (CLI) | payer BC ==
[~2022-12-15] VITALS: Ht 182.8 cm; Wt 127.3 kg
[~2022-12-15 05:38] MED LIST changes: +DILT240C91 PO; +DOCU100T2 PO; +DRON400T6 PO; +FAMO20TA3 PO; +HYDR-700 PO; +OMEP40CA6 PO
[2022-12-19] MEDS ORDERED: VALS160T29 PO (13:42)
[2022-12-19] MEDS ORDERED: SERT-413 PO (13:46)
== END 2022-12-19 13:52 | disposition home or self-care (01) ==
LOC: PREOP 05:38
PROVIDERS: ATTEND Specialist
DX: Z01.818 Encounter for other preprocedural examination (principal)

== ENCOUNTER 2022-12-23 09:11 | Day surgery (SDC) | payer BC ==
[~2022-12-23] VITALS: Ht 182.8 cm; Wt 127.3 kg
[~2022-12-23 09:11] MED LIST changes: +SERT-413 PO
[2022-12-23 09:25] VITALS: BP 142/75
[2022-12-23] MEDS: TETRACAINE 0.5% OPHTH SOLN 4 ML BTL (SINGLE DOSE ONLY) OU PRN ×2 (09:29→09:34)
[2022-12-23] MEDS: TROPICAMIDE 1% OPH SOLN (MYDRIACYL) 15 ML BTL OU PRN ×2 (09:31→09:35)
[2022-12-23] MEDS: PHENYLEPHRINE 10% OPHTH (NEO-SYN) 5 ML BTL OU PRN ×2 (09:31→09:35)
--- NOTE | 2022-12-23 10:12 | Ophthalmologist Pre-Op Note ---
Pre-Operative Progress Note H&P Reviewed The H&P was reviewed, patient examined and no changes noted. Date H&P Reviewed: Dec 23, 2022 Time H&P Reviewed: 09:45 Pre-Op Dx Secondary Cataract, Bilateral Eyes LAMAR GAVIN MD Dec 23, 2022 10:12
--- NOTE | 2022-12-23 10:13 | Ophthalmology Operative Report ---
YAG Capsulotomy PREOPERATIVE DIAGNOSIS: Secondary Cataract Bilateral POSTOPERATIVE DIAGNOSIS: Secondary Cataract Bilateral PROCEDURE: YAG Capsulotomy, Bilateral SURGEON: Javier Gavin ANESTHESIA: Topical anesthesia COMPLICATIONS: None ESTIMATED BLOOD LOSS: Minimal DESCRIPTION OF PROCEDURE: After proper informed consent was obtained, the patient's, a 52 male , received one drop of Tropicamide and one drop of Tetracaine in each eye. The patient was then placed at the YAG laser and using a power of [ 3.5] millijoules and bursts [ 16] right eye and [14 ] left eye were used to fashion a central capsulotomy. The patient tolerated the procedure well without complications. JAVIER GAVIN MD Dec 23, 2022 10:13
== END 2022-12-23 10:00 | disposition home or self-care (01) ==
LOC: SDC 09:11
PROVIDERS: ATTEND Specialist
DX: E11.36 Type 2 diabetes mellitus with diabetic cataract (principal); H26.40 Unspecified secondary cataract; Z79.84 Long term (current) use of oral hypoglycemic drugs